=== PATIENT | male | born 1935 | race Caucasian/White ===

== ENCOUNTER 2017-05-04 13:27 | Inpatient (IN) | payer BC, MEDICARE ==
[~2017-05-04] VITALS: Ht 172.7 cm; Wt 63.2 kg
[~2017-05-04 13:27] MED LIST: ASPIR-LOW81 MG PO; ATORVASTATIN CA10 MG PO; CITRACAL + BON1 EACH PO; FOLIC ACID1 MG PO; HYDROXYCHLOROQ200 MG PO; LOSARTAN-HCTZ1 EAC2 PO; METHOTREXATE2.5 MG PO; METHYLPREDNISOLO4 MG PO; SM GLUCOSAMINE1 EACH; ZOLPIDEM TARTRAT5 MG PO
--- OUTSIDE RECORDS SUMMARY | 2017-05-04 13:29 | XMS REPORT | Clinical Summary ---
Author Author [facility] Organization [facility] Address Unknown Phone Unavailable Care Team Providers Care Bar Welder Name Role Phone Asked, Pcp PCP Unavailable Allergies Active Allergy Reactions Severity Noted Date Comments Naproxen Sodium Rash Low 12/24/2015 swelling Methocarbamol Rash Low 12/24/2015 swelling Current Medications Prescription Sig. Disp. Refills Start End Date Status Date methylPREDNISolone 12/13/19 Active (MEDROL) 4 MG tablet 16 losartan (COZAAR) 100 MG 10/22/19 Active tablet 16 atorvastatin (LIPITOR) 10 10/22/19 Active MG tablet 16 hydroxychloroquine 12/13/19 Active (PLAQUENIL) 200 mg tablet 16 folic acid (FOLVITE) 1 MG Take 1 mg by mouth daily. Active tablet hydrALAZINE (APRESOLINE) Take 50 mg by mouth 3 Active 50 MG tablet (three) times a day. CYANOCOBALAMIN, VITAMIN Inject as directed. Active B-12, (VITAMIN B-12 INJ) zolpidem (AMBIEN) 5 MG Take 5 mg by mouth Active tablet nightly as needed for sleep. UNABLE TO FIND Steroid injection every 6 Active wks-for RA Active Problems Problem Noted Date Primary osteoarthritis of right knee 01/12/2016 Social History Tobacco Use Types Packs/Day Years Used Date Never Smoker Alcohol Use Drinks/Week oz/Week Comments No Sex Assigned at Date Recorded Not on file Last Filed Vital Signs Not on file Plan of Treatment Health Maintenance Due Date Last Done Comments ZOSTER VACCINE 1996 PNEUMOCOCCAL 2001 POLYSACCHARIDE VACCINE AGE 65 AND OVER PNEUMOCOCCAL-13 2001 INFLUENZA VACCINE 09/21/2016 Implants Implanted Type Area Assistant Professor Of Philosophy Device Expiration Model / Identifier Date Serial / Lot Tri Tib Cmt Stm 5 Deg Sz F R, IPM Right: Yovia 2025 [id number] Persona Knee Joint Implant - IMPLANT Knee 075 / [id number] DEVICES / Implanted: Qty: 1 on 01/12/2016 by [id number] Eloy Dumas MD All Poly Pat 38 Mm Annalee, Persona IPM Right: [employer] 11/20/2022 [id number] Knee Joint Implant - [id number] IMPLANT Knee 000 38 / Implanted: Qty: 1 on 01/12/2016 by SAMIRA / Eloy Dumas MD [id number] Right Mc 10mm Used With E-F/8-11 - IPM Right: [employer] 12/21/2020 [id number] IMPLANT Knee 0 / Implanted: Qty: 1 on 01/12/2016 by SAMIRA / Eloy Dumas MD [id number] Tri Fem Cr Cmt Ccr Cnt Sz 9 R, IPM Right: [employer] 09/20/2025 [id number] Persona Knee Joint Implant - IMPLANT Knee 2 / [id number] DEVICES / Implanted: Qty: 1 on 01/12/2016 by [id number] Eloy Dumas MD Cement Bone R+G 1dose Palacos - Knee Joint Right: [employer] 2019 [id number] Implants Knee / Implanted: Qty: 2 on 01/12/2016 by / Eloy Dumas MD [id number] Results Not on fileafter 05/03/2016 Insurance Payer Benefit Subscriber ID Type Phone Address Plan / Group MEDICARE MEDICARE xxxxxxxxxx Medicare [employer], [place] PART A AND B COMMERCIAL MISC MISC xxxxxxxxxx [place] [address]
[2017-05-04] MEDS ORDERED: ASPIRIN 325 MG TAB PO ONE (14:00)
[2017-05-04 14:25] LABS: BASOPHILS % 0.2 % (0.0-1.0); HEMATOCRIT 29.6 % (38.2-49.6); HEMOGLOBIN 9.9 g/dL (14.0-18.0); LYMPHOCYTES # (AUTO) 0.4 (1.0-3.2); LYMPHOCYTES % 4.6 % (18.0-39.1); MEAN CORPUSCULAR HEMOGLOBIN 30.3 pg (28-32); MEAN CORPUSCULAR HGB CONC 33.4 g/dL (31-35); MEAN CORPUSCULAR VOLUME 90.5 fL (81-99); MONOCYTES # (AUTO) 0.7 (0.2-0.8); MONOCYTES % 7.7 % (4.4-11.3); NEUTROPHILS # (AUTO) 7.9 (2.1-6.9); NEUTROPHILS % 87.1 % (38.7-80.0); PLATELET COUNT 164 x10e3/uL (140-360); RED BLOOD COUNT 3.27 x10e6/uL (4.3-5.7); RED CELL DISTRIBUTION WIDTH 15.7 % (11.7-14.4)
[2017-05-04 14:36] LABS: INR 1.44; PROTHROMBIN TIME 16.5 seconds (11.9-14.5)
[2017-05-04 14:37] LABS: PARTIAL THROMBOPLASTIN TIME 33.5 seconds (23.8-35.5)
[2017-05-04 14:45] LABS: ALANINE AMINOTRANSFERASE 46 IU/L (0-55); ALBUMIN 3.5 g/dL (3.5-5.0); ALBUMIN/GLOBULIN RATIO 1.3 (0.8-2.0); ALKALINE PHOSPHATASE 35 IU/L (40-150); ANION GAP 13.9 mmol/L (8-16); BLOOD UREA NITROGEN 34 mg/dL (7-26); BUN/CREATININE RATIO 30 (6-25); CALCIUM 8.8 mg/dL (8.4-10.2); CARBON DIOXIDE 19 mmol/L (22-29); CHLORIDE 113 mmol/L (98-107); CREATINE KINASE 146 IU/L (30-200); CREATININE, SERUM 1.13 mg/dL (0.72-1.25); EST GLOMERULAR FILTRATION RATE > 60 ML/MIN (60-); GLUCOSE 96 mg/dL (74-118); POTASSIUM 4.9 mmol/L (3.5-5.1); SODIUM 141 mmol/L (136-145)
[2017-05-04] MEDS ORDERED: FUROSEMIDE INJ 10 MG/ML 2 ML VIAL IV ONE (14:45)
--- NOTE | 2017-05-04 15:07 | Diagnostic Imaging Report ---
PROCEDURE: A single AP view of the chest. COMPARISON: Chest x-ray of 07/04/2013. INDICATIONS: Chest pain, shortness of breath FINDINGS: Lines/tubes: None. Lungs: Lungs are hypoinflated. Bibasilar atelectasis and/or consolidations. Perihilar interstitial edema. Pleura: There is no pleural effusion or pneumothorax. Heart and mediastinum: Mild cardiomegaly. Bones: No acute bony abnormality. IMPRESSION: Bibasilar atelectasis and/or consolidations. Perihilar interstitial edema. Dictated by: Rashad Steele M.D. on 05/04/2017 at 15:07 Electronically approved by: Rashad Steele M.D. on 05/04/2017 at 15:07
[2017-05-04] MEDS ORDERED: ALBUTEROL/IPRATROPIUM 3 ML NEB NEB ONE (15:30)
--- OUTSIDE RECORDS SUMMARY | 2017-05-04 17:30 | XMS REPORT ---
Author Author [facility] Address Unknown Phone Unavailable Care Team Providers Care Manager Image Name Role Phone KORINA MENDEZ Unavailable Unavailable Problems This patient has no known problems. Allergies, Adverse Reactions, Alerts This patient has no known allergies or adverse reactions. Medications This patient has no known medications. Results Test Description Test Time Test Comments Text Results Atomic Results Result Comments CHEST SINGLE (PORTABLE) [place] [address] Patient Name: BILL CARUSO MR #: [id number] : 1935 Age/Sex: 81/M Req #: [id number] Adm Physician: Ordered by: KORINA MENDEZ MD Report #: [id number] Location: ER Room/Bed: Procedure: [id number] DX/CHEST SINGLE (PORTABLE) Exam Date: 05/04/17 Exam Time: 1420 REPORT STATUS: Signed PROCEDURE: A single AP view of the chest. COMPARISON: Chest x-ray of 07/04/2013. INDICATIONS : Chest pain, shortness of breath FINDINGS: Lines/tubes: None. Lungs: Lungs are hypoinflated. Bibasilar atelectasis and/or consolidations. Perihilar interstitial edema. Pleura: There is no pleural effusion or pneumothorax. Heart and mediastinum: Mild cardiomegaly. Bones: No acute bony abnormality. IMPRESSION: Bibasilar atelectasis and/or consolidations. Perihilar interstitial edema. Dictated by: Barbie Steele M.D. on 05/04/2017 at 15:07 Electronically approved by: Barbie Steele M.D. on 05/04/2017 at 15:07 Dictated By: BARBIE STELEE MD [id number] Transcribed By: TAYLOR on 05/04/17 1507 COPY TO: KORINA MENDEZ MD
--- OUTSIDE RECORDS SUMMARY | 2017-05-04 17:30 | XMS REPORT | Clinical Summary ---
Author Author [facility] Organization [facility] Address Unknown Phone Unavailable Care Team Providers Care Legal Adviser Name Role Phone Asked, Pcp PCP Unavailable [...] INFLUENZA VACCINE 09/21/2016 Implants Implanted Type Area Tobacco Grader Device Expiration Model / Identifier Date Serial / Lot Tri Tib Cmt Stm 5 Deg Sz F R, IPM Right: Whois 2025 [id number] Persona Knee Joint Implant - IMPLANT Knee 075 / [id number] DEVICES / Implanted: Qty: 1 on 01/12/2016 by [id number] Eloy Dumas MD All Poly Pat 38 Mm Annalee, Persona IPM Right: [employer] 11/20/2022 42 [id number] Knee Joint Implant - [id number] IMPLANT Knee 000 38 / Implanted: Qty: 1 on 01/12/2016 by SAMIRA / Eloy Dumas MD [id number] Right Mc 10mm Used With E-F/8-11 - IPM Right: [employer] 12/21/2020 [id number] IMPLANT Knee 0 / Implanted: Qty: 1 on 01/12/2016 by SAMIRA / Eloy Dumas MD [id number] Tri Fem Cr Cmt Ccr Cnt Sz 9 R, IPM Right: [employer] 09/20/2025 [id number] Persona Knee Joint Implant - IMPLANT Knee 2 / [id number] DEVICES / Implanted: Qty: 1 on 01/12/2016 by [id number] Eloy Dumas MD Cement Bone R+G 1dose Palacos - Knee Joint Right: [employer] 2019 [id number] Implants Knee / Implanted: Qty: 2 on 01/12/2016 by / Eloy Dumas MD [id number] Results Not on fileafter 05/03/2016 Insurance Payer Benefit Subscriber ID Type Phone Address Plan / Group MEDICARE MEDICARE xxxxxxxxxx Medicare [place], [place] PART A AND B COMMERCIAL MISC MISC xxxxxxxxxx [place] [address]
[2017-05-04 20:00] VITALS: BP 123/69
[2017-05-04 20:31] VITALS: BP 123/69
[2017-05-04] MEDS: ACETAMINOPHEN 325 MG TAB PO PRN (23:16)
[2017-05-05] VITALS (8 sets, daily range): BP systolic 135–151; BP diastolic 73–94
[2017-05-05 04:32] LABS: CREATINE KINASE MB 4.4 ng/mL (0-5.0)
[2017-05-05] MEDS ORDERED: ASPIRIN 325 MG TAB EC PO SCH (09:00)
[2017-05-05] MEDS ORDERED: LISINOPRIL 10 MG TAB PO SCH (09:00)
[2017-05-05] MEDS: FUROSEMIDE INJ 10 MG/ML 4 ML VIAL IV SCH ×2 (09:56→17:58)
[2017-05-05 12:09] LABS: CREATINE KINASE MB 5.5 ng/mL (0-5.0)
--- NOTE | 2017-05-05 12:13 | Diagnostic Imaging Report ---
PROCEDURE: X-RAY CHEST, TWO VIEWS COMPARISON: Patients [facility], DX, CHEST SINGLE (PORTABLE), 05/04/2017, 14:35. INDICATIONS: CONGESTIVE HEART FAILURE, SHORTNESS OF BREATH FINDINGS: LUNGS: Slight improvement in the pulmonary edema. Bibasilar atelectasis persists. PLEURA: Small bilateral pleural effusions. HEART \T\ MEDIASTINUM: The heart is within normal size-limits. BONES \T\ SOFT TISSUES: No acute findings. CONCLUSION: Improving pulmonary edema. Braden Keen D.O. Dictated by: Braden Keen D.O. on 05/05/2017 at 12:12 Electronically approved by: Braden Keen D.O. on 05/05/2017 at 12:12
--- NOTE | 2017-05-05 12:14 | Consultation ---
DATE OF CONSULTATION: May 05, 2017 CARDIOLOGY CONSULTATION ATTENDING PHYSICIAN: Dr. Bishop. Thank you so much for asking me to see this nice man again in consultation. Mr. Mcduffie is a pleasant but very elderly 81-year-old man with rheumatoid arthritis, who was sent from his doctor's office with swelling of legs and shortness of breath. HISTORY OF PRESENT ILLNESS: Patient was given Megace about 3 weeks ago because he had been gradually losing weight over recent years. The says it is none more recently than before but that after taking the medicine for almost 3 weeks he noted his legs had significant edema and he had shortness of breath. He denies any chest pain or palpitations. PAST MEDICAL HISTORY: Long and complex with rheumatoid arthritis, back pain for over 30 years. He sees a guide tour, Dr. Vargas, and gets steroid injections about every 90 days. He had a left total knee replacement in 2012 evidently complicated by deep venous thrombosis. He used to take warfarin. He had a right total knee replacement in 2015. He had back surgery in 1984. He reports he had coronary stents placed in 2005 at [facility] by Dr. Savage. He continues to see Dr. Savage. He was hospitalized at [facility] in 2014 for a urinary tract infection and confusion. Echocardiogram in 2014 showed an ejection fraction of 59% and mild left ventricular hypertrophy. HOME MEDICATIONS: Not noted on the chart but he has previously taken aspirin 81, atorvastatin, glucosamine, losartan 100 mg daily, methylprednisolone, and Ambien. PERSONAL AND SOCIAL HISTORY: He does not currently smoke nor drink. He lives with his . PHYSICAL EXAMINATION: GENERAL: Shows an elderly white man who is alert and responsive. No distress. VITALS: Blood pressure 140/83, afebrile, pulse 100. HEENT: Unremarkable. THORAX: Heart sounds S1 and S2 are equal. No murmurs, gallops or rubs audible. The lungs have faint bibasilar crackles. ABDOMEN: Protuberant. Normal bowel sounds. EXTREMITIES: Have 2+ pretibial edema below the knees and bilateral healed knee incisions. LAB: His BNP is 6741. His troponins are normal times 2. CHEST X-RAY: Shows hyperinflated lungs with atelectasis and perihilar edema. ASSESSMENT: 1. New-onset congestive heart failure. 2. 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 PLAN: Agree with plans for diuresis. Will add carvedilol low-dose and will plan to check a Cardiolite in the morning to further assess his coronary status with the knowledge that he has had coronary stenting in the past but no recent chest discomforts. Thank you for asking me to see him in consultation. Job#: [id number] EV
[2017-05-05] MEDS ORDERED: REGADENOSON 0.4 MG/5 ML SYR IV ONE (16:29)
[2017-05-05] MEDS: [UNRECOGNIZED DRUG - OTHER] PO SCH (17:00)
[2017-05-05] MEDS: CARVEDILOL 3.125 MG TAB PO SCH (17:58)
[2017-05-05] MEDS: HYDROCHLOROTHIAZIDE 25 MG TAB PO SCH (18:23)
[2017-05-05] MEDS: LOSARTAN POTASSIUM 100 MG TAB PO SCH (18:27)
[2017-05-05] MEDS: ATORVASTATIN 10 MG TAB PO SCH (20:45)
[2017-05-05] MEDS: ZOLPIDEM TARTRATE 5 MG TAB PO SCH (20:45)
[2017-05-05] MEDS ORDERED: AMIODARONE HCL 200 MG TAB PO ONE (20:45)
[2017-05-06] VITALS (7 sets, daily range): BP systolic 122–155; BP diastolic 72–86
[2017-05-06] MEDS: AMIODARONE HCL 200 MG TAB PO SCH ×3 (04:00→21:33)
[2017-05-06 07:13] LABS: BASOPHILS # (AUTO) 0.1 (0.0-0.1); BASOPHILS % 0.6 % (0.0-1.0); EOSINOPHILS # (AUTO) 0.1 (0.0-0.4); EOSINOPHILS % 0.6 % (0.0-6.0); HEMATOCRIT 30.1 % (38.2-49.6); HEMOGLOBIN 10.1 g/dL (14.0-18.0); LYMPHOCYTES # (AUTO) 1.1 (1.0-3.2); LYMPHOCYTES % 12.2 % (18.0-39.1); MEAN CORPUSCULAR HEMOGLOBIN 30.5 pg (28-32); MEAN CORPUSCULAR HGB CONC 33.6 g/dL (31-35); MEAN CORPUSCULAR VOLUME 90.9 fL (81-99); MONOCYTES # (AUTO) 0.8 (0.2-0.8); MONOCYTES % 9.6 % (4.4-11.3); NEUTROPHILS # (AUTO) 6.7 (2.1-6.9); NEUTROPHILS % 76.8 % (38.7-80.0); PLATELET COUNT 156 x10e3/uL (140-360); RED BLOOD COUNT 3.31 x10e6/uL (4.3-5.7)
[2017-05-06 07:41] LABS: ANION GAP 13.3 mmol/L (8-16); CALCIUM 8.9 mg/dL (8.4-10.2); CREATININE, SERUM 1.46 mg/dL (0.72-1.25); POTASSIUM 4.3 mmol/L (3.5-5.1)
[2017-05-06] MEDS: HYDROXYCHLOROQUINE SULFATE 200 MG TAB PO SCH (09:00)
[2017-05-06] MEDS: ASPIRIN 81 MG CHEW TAB PO SCH (09:00)
[2017-05-06] MEDS ORDERED: [UNRECOGNIZED DRUG - OTHER] PO SCH (09:00)
[2017-05-06] MEDS: CARVEDILOL 3.125 MG TAB PO SCH ×2 (09:00→17:10)
[2017-05-06] MEDS: FUROSEMIDE INJ 10 MG/ML 4 ML VIAL IV SCH ×2 (09:00→17:10)
[2017-05-06] MEDS: LOSARTAN POTASSIUM 100 MG TAB PO SCH (09:00)
[2017-05-06] MEDS ORDERED: LOSARTAN PO SCH (09:00)
[2017-05-06] MEDS ORDERED: HYDROCHLOROTHIAZIDE PO SCH (09:00)
[2017-05-06] MEDS: [UNRECOGNIZED DRUG - OTHER] PO SCH ×2 (09:00→17:00)
[2017-05-06] MEDS: HYDROCHLOROTHIAZIDE 25 MG TAB PO SCH (09:00)
[2017-05-06] MEDS: FOLIC ACID 1 MG TAB PO SCH (10:38)
[2017-05-06] MEDS ORDERED: ONDANSETRON HCL INJ 2 MG/ML VIAL IV PRN (11:45)
[2017-05-06] MEDS: METHYLPREDNISOLONE 4 MG TAB PO SCH (13:35)
--- NOTE | 2017-05-06 17:20 | Cardiology Report ---
DATE OF STUDY: May 06, 2017 LEXISCAN MYOVIEW This is a 2-day study. The patient had resting perfusion images taken after an injection of 11 mCi of technetium 99M Myoview on May 05, 2017. On the morning of May 06, 2017, the patient was given Lexiscan 0.4 mg intravenously and shortly afterwards 31.1 mCi of technetium 99M Myoview. Perfusion images were taken by rotation tomography. Comparison of resting and Lexiscan stress images show a medium-size inferior scar. There is a very small anteroseptal scar. There is no distinct evidence of any ischemia detected. Additionally gated wall-motion images were obtained. There is marked global hypokinesis with calculated ejection fraction of 22%. FINAL IMPRESSION 1. Abnormal Lexiscan Myoview for perfusion. 2. Medium-size inferior scar. 3. Very small anteroseptal scar. 4. No distinct ischemia noted. 5. Global hypokinesis and calculated ejection fraction 22%. Job#: [id number] cc:BRITTNEY VALENCIA MD
[2017-05-06] MEDS: ATORVASTATIN 10 MG TAB PO SCH (21:33)
--- NOTE | 2017-05-06 21:45 | Consultation ---
DATE OF CONSULTATION: May 06, 2017 REFERRING PHYSICIAN: Dr. Temple REASON FOR CONSULT: Ventricular tachycardia, cardiomyopathy. HISTORY OF PRESENT ILLNESS: This is an 81-year-old gentleman with history of hypertension, who was admitted with progressive shortness of breath found to have decompensated heart failure. Patient states she has been having these symptoms for about 1 year and worse over the last 6 months. He also has history of coronary artery disease. He had a myocardial infarction about 10 years ago, underwent PCI. This time, he had an echocardiogram that demonstrated ejection fraction 20%. He is congestive heart failure class 3 and is currently receiving medical therapy. His telemetry showed an episode of ventricular tachycardia that lasted for about 15 seconds. Patient does not recall feeling any palpitations. Denies syncope or cardiac arrest. REVIEW OF SYSTEMS CONSTITUTIONAL: Weakness. CARDIOVASCULAR: As per HPI. RESPIRATORY: Negative. GASTROINTESTINAL: Negative. GENITOURINARY: Negative. MUSCULOSKELETAL: Negative. EYES: Negative. ENT: Negative. ALLERGY/IMMUNOLOGY: Negative. PSYCHIATRIC: Negative. PAST MEDICAL HISTORY: As per HPI. SURGICAL HISTORY: Negative. SOCIAL HISTORY: No smoking, alcohol or illicit drugs. FAMILY HISTORY: No premature coronary artery disease. PHYSICAL EXAM VITAL SIGNS: Blood pressure 128/60, pulse 70, respiration 20, O2 sats 98%. GENERAL: In no acute distress. HEENT: Moist mucous membranes. CARDIOVASCULAR: Regular. RESPIRATORY: Clear to auscultation. ABDOMEN: Soft, nontender. MUSCULOSKELETAL: 2+ distal pulses. NEUROLOGIC: No focal deficits. EXTREMITIES: Normal range of motion on all 4. PSYCHIATRIC: Normal thought process. SKIN: No lesions. EKG: Sinus rhythm, incomplete left bundle-branch block with QRS duration 100. IMPRESSIONS 1. Ischemic cardiomyopathy with ejection fraction 20%. Patient had scar by stress test. 2. History of myocardial infarction about 10 years ago. 3. History of coronary stent placement about 10 years ago. RECOMMENDATIONS: Agree with continuing aggressive medical therapy. Started amiodarone 400 mg q.8 h while he is in the hospital and then, discharged on 200 mg once a day. Patient has ischemic cardiomyopathy with significant scar burden unlikely to recover since he has been chronic since he had myocardial infarctions in the past and also, he had ventricular tachycardia. He has had increased risk for sudden cardiac . He has indication for cardiac defibrillator. This was explained to the patient and he is very interested. At this time, will continue current medical management. Will wait for results from the heart catheterization to decide whether he goes for a cardiac defibrillator. In case he undergoes revascularization, then we could consider a LifeVest. Otherwise, will proceed with ICD during this admission. Thank you for letting us participate in Mr. Mcduffie's health care. Job#: [id number] CQ
[2017-05-06] MEDS: ZOLPIDEM TARTRATE 5 MG TAB PO SCH (22:14)
[2017-05-07] VITALS (7 sets, daily range): BP systolic 100–135; BP diastolic 57–70
[2017-05-07] MEDS: AMIODARONE HCL 200 MG TAB PO SCH ×3 (05:03→20:00)
[2017-05-07] MEDS: LOSARTAN POTASSIUM 100 MG TAB PO SCH (09:00)
[2017-05-07] MEDS: HYDROCHLOROTHIAZIDE 25 MG TAB PO SCH (09:00)
[2017-05-07] MEDS: FUROSEMIDE INJ 10 MG/ML 4 ML VIAL IV SCH ×2 (09:00→17:13)
[2017-05-07] MEDS: HYDROXYCHLOROQUINE SULFATE 200 MG TAB PO SCH (09:00)
[2017-05-07] MEDS: ASPIRIN 81 MG CHEW TAB PO SCH (09:00)
[2017-05-07] MEDS: FOLIC ACID 1 MG TAB PO SCH (09:00)
[2017-05-07] MEDS: METHYLPREDNISOLONE 4 MG TAB PO SCH (09:00)
[2017-05-07] MEDS: CARVEDILOL 3.125 MG TAB PO SCH ×2 (09:00→17:00)
[2017-05-07] MEDS: [UNRECOGNIZED DRUG - OTHER] PO SCH ×2 (09:00→17:00)
[2017-05-07 13:22] LABS: FREE THYROXINE INDEX 2.4523 (1.4-3.8)
[2017-05-07] MEDS: ATORVASTATIN 10 MG TAB PO SCH (20:59)
[2017-05-07] MEDS: CEPHALEXIN 500 MG CAP PO SCH (20:59)
[2017-05-07] MEDS: ZOLPIDEM TARTRATE 5 MG TAB PO SCH (22:42)
[2017-05-08] VITALS (7 sets, daily range): BP systolic 97–123; BP diastolic 54–73
[2017-05-08] MEDS: AMIODARONE HCL 200 MG TAB PO SCH ×3 (04:25→21:10)
[2017-05-08] MEDS: METHYLPREDNISOLONE 4 MG TAB PO SCH (08:30)
[2017-05-08] MEDS: FOLIC ACID 1 MG TAB PO SCH (08:30)
[2017-05-08] MEDS: CEPHALEXIN 500 MG CAP PO SCH ×2 (08:30→21:10)
[2017-05-08] MEDS: ASPIRIN 81 MG CHEW TAB PO SCH (08:30)
[2017-05-08] MEDS: HYDROXYCHLOROQUINE SULFATE 200 MG TAB PO SCH (08:30)
[2017-05-08] MEDS: HYDROCHLOROTHIAZIDE 25 MG TAB PO SCH (08:30)
[2017-05-08] MEDS: LOSARTAN POTASSIUM 100 MG TAB PO SCH (08:30)
[2017-05-08] MEDS: CARVEDILOL 3.125 MG TAB PO SCH ×2 (08:30→17:00)
[2017-05-08] MEDS: FUROSEMIDE INJ 10 MG/ML 4 ML VIAL IV SCH ×2 (08:30→17:00)
[2017-05-08] MEDS: [UNRECOGNIZED DRUG - OTHER] PO SCH ×2 (09:00→17:00)
[2017-05-08] MEDS: ATORVASTATIN 10 MG TAB PO SCH (21:10)
[2017-05-08] MEDS: ZOLPIDEM TARTRATE 5 MG TAB PO SCH (23:00)
[2017-05-09] VITALS (10 sets, daily range): BP systolic 88–119; BP diastolic 51–60
[2017-05-09] MEDS: [UNRECOGNIZED DRUG - OTHER] PO SCH ×2 (09:00→16:46)
[2017-05-09] MEDS ORDERED: SODIUM CHLORIDE FLUSH 10 ML SYR INJ PRN (10:15)
[2017-05-09] MEDS: ASPIRIN 81 MG CHEW TAB PO SCH (10:18)
[2017-05-09] MEDS: FUROSEMIDE INJ 10 MG/ML 4 ML VIAL IV SCH (10:18)
[2017-05-09] MEDS: HYDROXYCHLOROQUINE SULFATE 200 MG TAB PO SCH (10:19)
[2017-05-09] MEDS: CARVEDILOL 3.125 MG TAB PO SCH ×2 (10:19→16:47)
[2017-05-09] MEDS: METHYLPREDNISOLONE 4 MG TAB PO SCH (10:19)
[2017-05-09] MEDS: FOLIC ACID 1 MG TAB PO SCH (10:19)
[2017-05-09] MEDS: HYDROCHLOROTHIAZIDE 25 MG TAB PO SCH (10:19)
[2017-05-09] MEDS: LOSARTAN POTASSIUM 100 MG TAB PO SCH (10:19)
[2017-05-09] MEDS: CEPHALEXIN 500 MG CAP PO SCH ×2 (10:19→21:00)
--- NOTE | 2017-05-09 11:03 | Diagnostic Imaging Report ---
PROCEDURE: A single AP view of the chest. COMPARISON: Chest 2 views 05/05/2017. INDICATIONS: CARDIAC CATHERIZATION FINDINGS: Lines/tubes: None. Lungs: Stable elevation of the left hemidiaphragm. Bibasilar airspace opacities. No parenchymal mass. Pleura: There is no pleural effusion or pneumothorax. Heart and mediastinum: The heart and the mediastinum are unremarkable. Bones: No acute bony abnormality. Degenerative changes of the thoracic spine. Postoperative changes of the left shoulder. IMPRESSION: Bibasilar airspace opacities may represent atelectasis or developing pneumonia. Dictated by: Manpreet Elizabeth M.D. on 05/09/2017 at 11:03 Electronically approved by: Manpreet Elizabeth M.D. on 05/09/2017 at 11:03
[2017-05-09] MEDS: AMIODARONE HCL 200 MG TAB PO SCH (12:16)
[2017-05-09] MEDS: ZOLPIDEM TARTRATE 5 MG TAB PO SCH (21:00)
[2017-05-09] MEDS: ATORVASTATIN 10 MG TAB PO SCH (21:00)
[2017-05-10] VITALS (8 sets, daily range): BP systolic 98–122; BP diastolic 56–62
[2017-05-10 07:33] LABS: BASOPHILS % 0.2 % (0.0-1.0); EOSINOPHILS % 0.3 % (0.0-6.0); HEMATOCRIT 34.5 % (38.2-49.6); HEMOGLOBIN 11.8 g/dL (14.0-18.0); LYMPHOCYTES # (AUTO) 1.4 (1.0-3.2); LYMPHOCYTES % 14.9 % (18.0-39.1); MEAN CORPUSCULAR HEMOGLOBIN 30.4 pg (28-32); MEAN CORPUSCULAR HGB CONC 34.2 g/dL (31-35); MEAN CORPUSCULAR VOLUME 88.9 fL (81-99); MONOCYTES % 11.1 % (4.4-11.3); NEUTROPHILS # (AUTO) 6.8 (2.1-6.9); PLATELET COUNT 204 x10e3/uL (140-360); RED BLOOD COUNT 3.88 x10e6/uL (4.3-5.7); RED CELL DISTRIBUTION WIDTH 14.8 % (11.7-14.4)
[2017-05-10 07:37] LABS: INR 1.27; PROTHROMBIN TIME 14.9 seconds (11.9-14.5)
[2017-05-10 07:38] LABS: PARTIAL THROMBOPLASTIN TIME 26.8 seconds (23.8-35.5)
[2017-05-10 07:57] LABS: ANION GAP 13.1 mmol/L (8-16); CALCIUM 8.8 mg/dL (8.4-10.2); CREATININE, SERUM 2.46 mg/dL (0.72-1.25); POTASSIUM 4.1 mmol/L (3.5-5.1)
[2017-05-10] MEDS: [UNRECOGNIZED DRUG - OTHER] PO SCH ×2 (09:00→17:00)
[2017-05-10] MEDS ORDERED: FUROSEMIDE INJ 10 MG/ML 4 ML VIAL IV SCH (09:00)
[2017-05-10] MEDS ORDERED: LIDOCAINE HCL 2% LOCAL 20 ML VIAL ONE (10:52)
[2017-05-10] MEDS: ASPIRIN 81 MG CHEW TAB PO SCH (12:10)
[2017-05-10] MEDS: LOSARTAN POTASSIUM 100 MG TAB PO SCH (12:10)
[2017-05-10] MEDS: CARVEDILOL 3.125 MG TAB PO SCH ×2 (12:10→17:49)
[2017-05-10] MEDS: AMIODARONE HCL 200 MG TAB PO SCH (12:10)
[2017-05-10] MEDS: FOLIC ACID 1 MG TAB PO SCH (12:10)
[2017-05-10] MEDS: HYDROCHLOROTHIAZIDE 25 MG TAB PO SCH (12:10)
[2017-05-10] MEDS: CEPHALEXIN 500 MG CAP PO SCH ×2 (12:11→20:29)
[2017-05-10] MEDS: METHYLPREDNISOLONE 4 MG TAB PO SCH (13:34)
--- NOTE | 2017-05-10 15:57 | Consultation ---
DATE OF CONSULTATION: May 10, 2017 RENAL CONSULTATION History predominantly from patient. HISTORY OF PRESENT ILLNESS: This is a pleasant 81-year-old white gentleman with underlying history of coronary artery disease status post percutaneous intervention, stents times [address] Savage at the [facility], history of left shoulder surgery, right knee replacement, hypertension, history of prostate cancer 9 years ago treated with radiation pallets. Has no trouble passing urine. Presented with difficulty breathing. Found to have congestive heart failure. Was diuresed. Serum creatinine baseline 1.46, went up to 2.46, which is why Renal consulted. Last BNP level 1708. Otherwise, he is lying supine. Not on oxygen. Perfectly comfortably. No apparent distress. Denies shortness of breath, orthopnea or dyspnea. ALLERGIES: NAPROXEN AND METHOCARBAMOL. SOCIAL HISTORY: Does not smoke or drink. FAMILY HISTORY: Significant for hypertension. CURRENT MEDICATIONS: Lasix. Hydrochlorothiazide/losartan. Ambien. Medrol 40 mg p.o. daily. Folic acid 1 mg p.o. daily. Cephalexin 500 mg p.o. q.12. Carvedilol 3.125 p.o. b.i.d. Atorvastatin 10 mg p.o. nightly. Aspirin 81 mg to chew. Amiodarone 400 mg p.o. daily. PHYSICAL EXAMINATION: GENERAL: Awake, alert, lying supine. No apparent distress. VITALS: Blood pressure 122/57, pulse rate 54, afebrile, respiratory rate 18 with oxygen saturation 98% room air. HEAD AND NECK: Cornea clear. Oral mucosa dry. Neck veins not distended. SKIN: Dry. Poor turgor. LUNGS: Bibasilar rales. HEART: A 3/6 holosystolic murmur heard over left lower sternal border, radiating to the axilla. Suggestive of mitral regurgitation. ABDOMEN: Soft, nontender. LOWER EXTREMITY EXAMINATION: Shows no edema. IMPRESSION: Acute kidney injury superimposed on chronic kidney disease stage 3 most likely. It appears patient does have some element of pulmonary edema but extremely well compensated. He clinically appears dry and intravascularly depleted. I will discontinue all diuretics, angiotensin-receptor blockers. Obtain kidney ultrasound, spot urine protein-creatinine ratio, urine sodium-creatinine, calculated fraction excretion of sodium. Obtain uric acid. Will give 5% albumin 500 mL over 6 hours. Gently hydrate. At the same time diurese as needed. Workup pending. Discussed with patient in detail. Job#: [id number] EV
[2017-05-10] MEDS: ALBUMIN 5% 250 ML IV SCH ×2 (16:41→20:25)
--- NOTE | 2017-05-10 17:09 | Diagnostic Imaging Report ---
PROCEDURE:US RETROPERITONEAL ( KIDNEY ). COMPARISON:None. INDICATIONS:YAYO TECHNIQUE: Scott-scale and color sonographic images of the bilateral kidneys and bladder where obtained in transverse and longitudinal planes. FINDINGS: RIGHT KIDNEY: 9.3 cm, cortex 1.4 cm Cysts: None Solid masses: None Stones: None Hydronephrosis: None Echogenicity: Normal LEFT KIDNEY: 6.2 cm, cortex 0.9 cm Cysts: None Solid masses: None Stones: None Hydronephrosis: None Echogenicity: Increased Bladder: No focal lesions. No wall thickening. Prostate: Not visualized. CONCLUSION: 1. Atrophic left kidney with increased cortical echogenicity consistent with medical renal disease. No hydronephrosis or obstruction. Right kidney is unremarkable. Beka Palma M.D. Dictated by: Beka Palma M.D. on 05/10/2017 at 17:09 Electronically approved by: Beka Palma M.D. on 05/10/2017 at 17:09
[2017-05-10 17:56] LABS: BILIRUBIN,URINE NEGATIVE (NEGATIVE); CLARITY,URINE CLEAR (CLEAR); COLOR,URINE YELLOW (YELLOW); KETONES,URINE NEGATIVE (NEGATIVE); LEUKOCYTE ESTERASE ,URINE NEGATIVE (NEGATIVE); NITRITE,URINE NEGATIVE (NEGATIVE); PROTEIN,URINE DIPSTICK NEGATIVE (NEGATIVE); URINE UROBILINOGEN 0.2 mg/dL (0.2 - 1)
[2017-05-10 18:09] LABS: CREATININE,URINE RANDOM 42.13 mg/dL (63-166)
[2017-05-10 18:12] LABS: TOTAL PROTEIN, URINE < 6.8 mg/dL (1-14)
[2017-05-10] MEDS: ATORVASTATIN 10 MG TAB PO SCH (20:29)
[2017-05-10] MEDS: ZOLPIDEM TARTRATE 5 MG TAB PO SCH (21:30)
[2017-05-11 03:41] VITALS: BP 111/53
[2017-05-11 07:12] LABS: ALBUMIN 3.6 g/dL (3.5-5.0); ALBUMIN/GLOBULIN RATIO 1.4 (0.8-2.0); ANION GAP 12.7 mmol/L (8-16); CALCIUM 8.9 mg/dL (8.4-10.2); CREATININE, SERUM 2.27 mg/dL (0.72-1.25); MAGNESIUM 1.8 MG/DL (1.3-2.1); PHOSPHORUS 3.5 MG/DL (2.3-4.7); POTASSIUM 4.7 mmol/L (3.5-5.1)
[2017-05-11 08:07] VITALS: BP 118/58
[2017-05-11] MEDS: AMIODARONE HCL 200 MG TAB PO SCH (09:00)
[2017-05-11] MEDS: CEPHALEXIN 500 MG CAP PO SCH ×2 (09:00→20:20)
[2017-05-11] MEDS: [UNRECOGNIZED DRUG - OTHER] PO SCH ×2 (09:00→16:57)
[2017-05-11] MEDS: CARVEDILOL 3.125 MG TAB PO SCH ×2 (09:00→16:56)
[2017-05-11] MEDS: METHYLPREDNISOLONE 4 MG TAB PO SCH (09:00)
[2017-05-11] MEDS: ASPIRIN 81 MG CHEW TAB PO SCH (09:00)
[2017-05-11] MEDS: FOLIC ACID 1 MG TAB PO SCH (09:00)
[2017-05-11] MEDS ORDERED: ALBUMIN HUMAN 12.5GM / 50ML IV ONE (09:30)
[2017-05-11] MEDS: ACETAMINOPHEN 325 MG TAB PO PRN ×2 (09:30→16:56)
[2017-05-11 09:51] VITALS: BP 118/58
[2017-05-11] MEDS ORDERED: ALBUMIN 5% 500 ML IV ONE (10:00)
[2017-05-11 12:14] VITALS: BP 101/52
[2017-05-11 16:20] VITALS: BP 107/58
[2017-05-11 20:00] VITALS: BP 111/57
[2017-05-11] MEDS: ATORVASTATIN 10 MG TAB PO SCH (20:20)
[2017-05-11] MEDS: ZOLPIDEM TARTRATE 5 MG TAB PO SCH (22:15)
[2017-05-12] VITALS (7 sets, daily range): BP systolic 110–126; BP diastolic 55–66
[2017-05-12 07:17] LABS: ALBUMIN 3.7 g/dL (3.5-5.0); ALBUMIN/GLOBULIN RATIO 1.6 (0.8-2.0); ANION GAP 13.7 mmol/L (8-16); CREATININE, SERUM 1.86 mg/dL (0.72-1.25); POTASSIUM 4.7 mmol/L (3.5-5.1)
[2017-05-12] MEDS: ASPIRIN 81 MG CHEW TAB PO SCH (09:00)
[2017-05-12] MEDS: METHYLPREDNISOLONE 4 MG TAB PO SCH (09:00)
[2017-05-12] MEDS: CARVEDILOL 3.125 MG TAB PO SCH ×2 (09:00→17:00)
[2017-05-12] MEDS: [UNRECOGNIZED DRUG - OTHER] PO SCH ×2 (09:00→17:00)
[2017-05-12] MEDS: AMIODARONE HCL 200 MG TAB PO SCH (09:00)
[2017-05-12] MEDS: CEPHALEXIN 500 MG CAP PO SCH ×2 (09:00→21:40)
[2017-05-12] MEDS: FOLIC ACID 1 MG TAB PO SCH (09:00)
[2017-05-12] MEDS: ATORVASTATIN 10 MG TAB PO SCH (21:40)
[2017-05-13] VITALS: BP 128/59
[2017-05-13 04:00] VITALS: BP 130/61
[2017-05-13 07:24] LABS: ALBUMIN 3.5 g/dL (3.5-5.0); ALBUMIN/GLOBULIN RATIO 1.5 (0.8-2.0); ANION GAP 13.2 mmol/L (8-16); CALCIUM 8.9 mg/dL (8.4-10.2); CREATININE, SERUM 1.74 mg/dL (0.72-1.25); POTASSIUM 4.2 mmol/L (3.5-5.1)
[2017-05-13 08:01] VITALS: BP 146/62
[2017-05-13] MEDS: [UNRECOGNIZED DRUG - OTHER] PO SCH (09:00)
[2017-05-13 09:33] VITALS: BP 146/62
[2017-05-13] MEDS: CARVEDILOL 3.125 MG TAB PO SCH (09:33)
[2017-05-13] MEDS: ASPIRIN 81 MG CHEW TAB PO SCH (09:33)
[2017-05-13] MEDS: FOLIC ACID 1 MG TAB PO SCH (09:33)
[2017-05-13] MEDS: AMIODARONE HCL 200 MG TAB PO SCH (09:33)
[2017-05-13] MEDS: CEPHALEXIN 500 MG CAP PO SCH (09:33)
[2017-05-13] MEDS ORDERED: COREG3.125 MG PO (11:48)
[2017-05-13] MEDS ORDERED: AMIODARONE HCL200 MG PO (11:48)
[2017-05-13 11:55] VITALS: BP 111/59
[2017-05-13] MEDS ORDERED: ALPRAZOLAM 0.25 MG TAB PO SCH (17:00)
== END 2017-05-13 13:55 | disposition home or self-care (01) | DRG 291 ==
LOC: ER 13:27 → ERHOLD 17:27 → MED/SURG3 18:37
PROVIDERS: ADMIT Internal Medicine; ATTEND Internal Medicine
DX: I13.0 Hypertensive heart and chronic kidney disease with heart failure and stage 1 through stage 4 chronic kidney disease, or unspecified chronic kidney disease (principal); I50.23 Acute on chronic systolic (congestive) heart failure; N17.9 Acute kidney failure, unspecified; I47.2 Ventricular tachycardia; I25.5 Ischemic cardiomyopathy; I25.10 Atherosclerotic heart disease of native coronary artery without angina pectoris; L03.116 Cellulitis of left lower limb; M06.9 Rheumatoid arthritis, unspecified; Z96.653 Presence of artificial knee joint, bilateral; Z86.718 Personal history of other venous thrombosis and embolism; Z95.5 Presence of coronary angioplasty implant and graft; I34.0 Nonrheumatic mitral (valve) insufficiency; I25.2 Old myocardial infarction; N18.3 Chronic kidney disease, stage 3 (moderate); D64.9 Anemia, unspecified; T37.8X5A Adverse effect of other specified systemic anti-infectives and antiparasitics, initial encounter; R79.89 Other specified abnormal findings of blood chemistry; Z79.52 Long term (current) use of systemic steroids
CPT/HCPCS: 36415; 71045; 71046; 76770; 78452; 80048; 80053; 81001; 82550; 82553; 82570; 83735; 83880; 84100; 84156; 84300; 84436; 84443; 84479; 84484; 84550; 85025; 85610; 85730; 93005; 93017; 93306; 94640; 99285; A9502; J1940; J2001; J7509

== ENCOUNTER 2017-06-21 07:16 | Observation (INO) | payer MEDICARE, OTHER ==
[2017-06-20 16:37] LABS: BASOPHILS % 0.6 % (0.0-1.0); EOSINOPHILS % 0.1 % (0.0-6.0); HEMATOCRIT 35.5 % (38.2-49.6); HEMOGLOBIN 12.1 g/dL (14.0-18.0); LYMPHOCYTES # (AUTO) 0.7 (1.0-3.2); MEAN CORPUSCULAR HEMOGLOBIN 30.5 pg (28-32); MEAN CORPUSCULAR HGB CONC 34.1 g/dL (31-35); MEAN CORPUSCULAR VOLUME 89.4 fL (81-99); MONOCYTES # (AUTO) 0.5 (0.2-0.8); MONOCYTES % 6.8 % (4.4-11.3); NEUTROPHILS # (AUTO) 5.9 (2.1-6.9); NEUTROPHILS % 82.2 % (38.7-80.0); PLATELET COUNT 196 x10e3/uL (140-360); RED BLOOD COUNT 3.97 x10e6/uL (4.3-5.7); RED CELL DISTRIBUTION WIDTH 15.3 % (11.7-14.4)
[2017-06-20 16:48] LABS: INR 1.15; PROTHROMBIN TIME 13.8 seconds (11.9-14.5)
[2017-06-20 16:55] LABS: ANION GAP 14.1 mmol/L (8-16); CALCIUM 9.5 mg/dL (8.4-10.2); CREATININE, SERUM 1.2 mg/dL (0.72-1.25); POTASSIUM 4.1 mmol/L (3.5-5.1)
[~2017-06-21] VITALS: Ht 167.6 cm; Wt 60.8 kg
[~2017-06-21 07:16] MED LIST changes: +ALPRAZOLAM0.25 MG PO; +AMIODARONE HCL200 MG PO; +BACITRACIN 50,000 UNIT VIAL ONE; +CLEOCIN 60600 MG/50 TOP; +COREG3.125 MG PO; +FENTANYL CITRATE/PF 100MCG/2 ML INJ ONE; +FLUTICASONE PRO16 GM; +FUROSEMIDE40 MG PO; +LIDOCAINE HCL 2% LOCAL 20 ML VIAL ONE; +MIDAZOLAM HCL 2 MG/2 ML VIAL ONE; +SODIUM CHLORIDE 0.9% 1000ML 2,000 ML ONE; +SODIUM CHLORIDE 0.9% 500ML 500 ML ONE; +VANCOMYCIN 1GM/NS 250 ML 250 ML ONE; +VITAMIN B12 IM
--- OUTSIDE RECORDS SUMMARY | 2017-06-21 07:18 | XMS REPORT | Continuity of Care Document ---
Author Author [facility] Organization [facility] Address [address] [place] [address] Phone Unavailable Care Team Providers Care Reserve Officer Name Role Phone MATA MENDEZ (NS) PCP Insurance Providers Guarantor Giuliana Caruso Address [address] [place] [address] Email N/A Payer Medicare A & B Policy Number [id number] Subscriber's Name Bill Caruso Relationship 18 Self / Same As Patient Group Name RETIRED Effective Date 01 Advance Directives Directive Response Recorded Date/Time Does the patient have an advance directive? Yes 05/04/17 8:00pm If yes, is advance directive on file with [facility]? No 05/04/17 8:00pm If not on file with [facility] will patient provide a copy? No 05/04/17 8:00pm Do you have a Directive to Physician? No 05/04/17 2:41pm Do you have a Medical Power of Nut Feeder? No 05/04/17 2:41pm Do you have an out of hospital Do Not Resuscitate Order? No 05/04/17 2:41pm Do you have any special needs we should be aware of? No 05/04/17 2:41pm Do you have a support person here with you today? Yes 05/04/17 2:41pm Did patient receive Notice of Privacy Practices? Yes 05/04/17 2:41pm Did patient receive patient rights and responsibilities? Yes 05/04/17 2:41pm Problems Medical Problem Onset Date Status CAD (coronary artery disease), platinum coronary artery Unknown Medications Current Home Medications Medication Dose Units Route Directions Days Qty Instructions Start Date Amiodarone Hcl 200 Mg Tablet 400 Mg Oral Daily 30 Days 05/13/17 Aspirin (Aspir-Low) 81 Mg Tablet.dr 81 Mg Oral Daily Atorvastatin Calcium 10 Mg Tablet 10 Mg Oral Bedtime Calcium Crb&Cit/D3/Min34/Regina (Citracal + Bone Density Tablet) 1 Each Tablet 630 Mg Oral Twice A Day 60 Days 100 Carvedilol (Coreg) 3.125 Mg Tab 3.125 Mg Oral Twice A Day 30 Days 05/13/17 Folic Acid 1 Mg Tablet 1 Mg Oral Daily Methotrexate Sodium (Methotrexate) 2.5 Mg Tablet 15 Mg Oral Weekly Methylprednisolone 4 Mg Tablet 4 Mg Oral Daily Zolpidem Tartrate 5 Mg Tablet 5 Mg Oral Bedtime Past Home Medications Medication Directions Ordered Status Glucosamine Hcl/Msm (Sm Glucosamine & Msm Tablet) 1 Each Tablet, Twice A Day Discontinued Hydroxychloroquine Sulfate 200 Mg Tablet, 400 Mg Oral Daily Discontinued Losartan/Hydrochlorothiazide (Losartan-Hctz 100-12.5 Mg Tab) 1 Each Tablet, 100 Mg Oral Daily Discontinued Social History Social History Problem Response Recorded Date/Time Onset Date Status Hx Psychiatric Problems No 05/04/2017 8:00pm Not Applicable Not Applicable Hx Eating Disorder No 05/04/2017 8:00pm Not Applicable Not Applicable Hx Substance Use Disorder No 05/04/2017 8:00pm Not Applicable Not Applicable Hx Depression No 05/04/2017 8:00pm Not Applicable Not Applicable Hx Alcohol Use No 05/04/2017 8:00pm Not Applicable Not Applicable Hx Substance Use Treatment No 05/04/2017 8:00pm Not Applicable Not Applicable Hx Physical Abuse No 05/04/2017 8:00pm Not Applicable Not Applicable Smoking Status Start Date Stop Date Never Smoker Hospital Discharge Instructions No hospital discharge instruction information available. Plan of Care Discharge Date 05/13/17 1:55pm Disposition HOME, SELF-CARE Instructions/Education Provided Congestive Heart Failure Prescriptions See Medication Section Referrals JESSICA GE (Nephrology) Order Date: 2 Weeks Entered Date: 05/12/2017 5:50pm Address: [address] [place], [place] [address] [address] Additional Instructions/Education FOLLOW UP WITH PCP IN 1 TO 2 WEEKS. WEAR LIFE VEST EDUCATED. Functional Status Query Response Date Recorded FUNCTIONAL STATUS . May 11, 2017 3:02pm Assistive Devices Standard Walker May 04, 2017 8:00pm Ambulation Ability Independent May 04, 2017 8:00pm Toileting Ability Minimum Assistance May 13, 2017 9:46am Allergies, Adverse Reactions, Alerts Allergen Type Severity Reaction Status Last Updated Methocarbamol Allergy Intermediate unknown Active 05/04/17 Naproxen Allergy Mild Active 07/23/09 Immunizations No immunization information available. Vital Signs Acute Vital Signs Vital Response Date/Time Temperature (Fahrenheit) 96.3 degrees F (97.6 - 99.5) 05/13/2017 11:55am Pulse Pulse Rate (adult) 68 bpm (60 - 90) 05/13/2017 11:55am Respiratory Rate 20 bpm (12 - 24) 05/13/2017 11:55am Blood Pressure 111/59 mm Hg 05/13/2017 11:55am Height 5 ft 8 in 05/04/2017 8:32pm Weight 139.38 lb 05/12/2017 12:23am Body Mass Index 21.2 kg/m^2 05/12/2017 12:23am Results Laboratory Results Test Name Result Units Flags Reference Collection Date/Time Result Date/ Time Comments White Blood Count 9.32 x10e3/uL 4.8-10.8 05/10/2017 7:09am 05/10/2017 7 :39am Red Blood Count 3.88 x10e6/uL L 4.3-5.7 05/10/2017 7:09am 05/10/2017 7: 39am Hemoglobin 11.8 g/dL L 14.0-18.0 05/10/2017 7:09am 05/10/2017 7:39am Hematocrit 34.5 % L 38.2-49.6 05/10/2017 7:09am 05/10/2017 7:39am Mean Corpuscular Volume 88.9 fL 81-99 05/10/2017 7:05/10/2017 7: 39am Mean Corpuscular Hemoglobin 30.4 pg 28-32 05/10/2017 7:05/10/2017 7:39am Mean Corpuscular Hemoglobin Concent 34.2 g/dL 31-35 05/10/2017 7:05/10/2017 7:39am Red Cell Distribution Width 14.8 % H 11.7-14.4 05/10/2017 7:2017 7:39am Platelet Count 204 x10e3/uL 140-360 05/10/2017 7:05/10/2017 7: 39am Neutrophils (%) (Auto) 73.0 % 38.7-80.0 05/10/2017 7:05/10/2017 7: 39am Lymphocytes (%) (Auto) 14.9 % L 18.0-39.1 05/10/2017 7:05/10/2017 7 :39am Monocytes (%) (Auto) 11.1 % 4.4-11.3 05/10/2017 7:05/10/2017 7: 39am Eosinophils (%) (Auto) 0.3 % 0.0-6.0 05/10/2017 7:05/10/2017 7: 39am Basophils (%) (Auto) 0.2 % 0.0-1.0 05/10/2017 7:05/10/2017 7:39am IM GRANULOCYTES % 0.5 % 0.0-1.0 05/10/2017 7:05/10/2017 7:39am Neutrophils # (Auto) 6.8 2.1-6.9 05/10/2017 7:05/10/2017 7:39am Lymphocytes # (Auto) 1.4 1.0-3.2 05/10/2017 7:05/10/2017 7:39am Monocytes # (Auto) 1.0 H 0.2-0.8 05/10/2017 7:05/10/2017 7:39am Eosinophils # (Auto) 0.0 0.0-0.4 05/10/2017 7:05/10/2017 7:39am Basophils # (Auto) 0.0 0.0-0.1 05/10/2017 7:09am 05/10/2017 7:39am Absolute Immature Granulocyte (auto 0.05 x10e3/uL 0-0.1 05/10/2017 7: 09am 05/10/2017 7:39am Prothrombin Time 14.9 seconds H 11.9-14.5 05/10/2017 7:09am 05/10/2017 7 :53am Prothromb Time International Ratio 1.27 05/10/2017 7:09am 2017 7:53am Oral Anticoagulant Therapy INR Values: 1. Low Intensity Therapy 1.5 - 2.0 2. Moderate Intensity Therapy 2.0 - 3.0 3. High Intensity Therapy(1) 2.5 - 3.5 4. High Intensity Therapy(2) 3.0 - 4.0 5. Panic Value INR > 5.0 Activated Partial Thromboplast Time 26.8 seconds 23.8-35.5 05/10/2017 7: 09am 05/10/2017 7:53am Urine Color YELLOW YELLOW 05/10/2017 5:10pm 05/10/2017 5:57pm Urine Clarity CLEAR CLEAR 05/10/2017 5:10pm 05/10/2017 5:57pm Urine Specific Wilson 1.015 1.010-1.025 05/10/2017 5:10pm 2017 5:57pm Urine pH 7 5 - 7 05/10/2017 5:10pm 05/10/2017 5:57pm Urine Leukocyte Esterase NEGATIVE NEGATIVE 05/10/2017 5:10pm 2017 5:57pm Urine Nitrite NEGATIVE NEGATIVE 05/10/2017 5:10pm 05/10/2017 5:57pm Urine Protein NEGATIVE NEGATIVE 05/10/2017 5:10pm 05/10/2017 5:57pm Urine Glucose (UA) NEGATIVE NEGATIVE 05/10/2017 5:10pm 05/10/2017 5: 57pm Urine Ketones NEGATIVE NEGATIVE 05/10/2017 5:10pm 05/10/2017 5:57pm Urine Urobilinogen 0.2 mg/dL 0.2 - 1 05/10/2017 5:10pm 05/10/2017 5: 57pm Urine Bilirubin NEGATIVE NEGATIVE 05/10/2017 5:10pm 05/10/2017 5: 57pm Urine Blood NEGATIVE NEGATIVE 05/10/2017 5:10pm 05/10/2017 5:57pm Urine WBC NONE /HPF 0-5 05/10/2017 5:10pm 05/10/2017 6:09pm Urine RBC NONE /HPF 0-5 05/10/2017 5:10pm 05/10/2017 6:09pm Urine Bacteria NONE /HPF NONE 05/10/2017 5:10pm 05/10/2017 6:09pm Urine Epithelial Cells NONE /LPF NONE 05/10/2017 5:10pm 05/10/2017 6: 09pm Urine Random Total Protein < 6.8 mg/dL 1-14 05/10/2017 5:10pm 2017 6:12pm Urine Random Sodium 96 mmol/L 05/10/2017 5:10pm 05/10/2017 6:00pm Urine Creatinine 42.13 mg/dL L 63-166 05/10/2017 5:10pm 05/10/2017 6: 12pm Urine Protein/Creatinine Ratio 0.00 05/10/2017 5:10pm 05/10/2017 6: 12pm Sodium Level 135 mmol/L L 136-145 05/13/2017 6:1905/13/2017 7:25am Potassium Level 4.2 mmol/L 3.5-5.1 05/13/2017 6:1905/13/2017 7:25am Chloride Level 106 mmol/L 98-107 05/13/2017 6:1905/13/2017 7:25am Carbon Dioxide Level 20 mmol/L L 22-29 05/13/2017 6:1905/13/2017 7: 25am Anion Gap 13.2 mmol/L 8-16 05/13/2017 6:1905/13/2017 7:25am Blood Urea Nitrogen 62 mg/dL H 7-05/13/2017 6:1905/13/2017 7:25am Creatinine 1.74 mg/dL H 0.72-1.25 05/13/2017 6:1905/13/2017 7:25am BUN/Creatinine Ratio 36 H 6-25 05/13/2017 6:1905/13/2017 7:25am Estimat Glomerular Filtration Rate 38 ML/MIN L 60- 05/13/2017 6:19 7:25am Ranges were taken from the National Kidney Disease Education Program and the National Kidney Foundation literature. Reference ranges: 60 or greater: Normal 16-59 (for 3 consecutive months): Chronic kidney disease 15 or less: Kidney failure Glucose Level 77 mg/dL 74-118 05/13/2017 6:05/13/2017 7:25am Calcium Level 8.9 mg/dL 8.4-10.2 05/13/2017 6:05/13/2017 7:25am Uric Acid 10.5 mg/dL H 4.8-8.0 05/10/2017 7:05/10/2017 4:16pm Phosphorus Level 3.5 MG/DL 2.3-4.7 05/11/2017 6:4005/11/2017 7:14am Magnesium Level 1.8 MG/DL 1.3-2.1 05/11/2017 6:4005/11/2017 7:14am Total Bilirubin 0.9 mg/dL 0.2-1.2 05/13/2017 6:05/13/2017 7:25am Aspartate Amino Transf (AST/SGOT) 23 IU/L 5-34 05/13/2017 6:2017 7:25am Alanine Aminotransferase (ALT/SGPT) 39 IU/L 0-55 05/13/2017 6: 7:25am Total Protein 5.8 g/dL L 6.5-8.1 05/13/2017 6:05/13/2017 7:25am Albumin 3.5 g/dL 3.5-5.0 05/13/2017 6:05/13/2017 7:25am Globulin 2.3 g/dL 2.3-3.5 05/13/2017 6:05/13/2017 7:25am Albumin/Globulin Ratio 1.5 0.8-2.0 05/13/2017 6:05/13/2017 7: 25am Alkaline Phosphatase 31 IU/L L 40-150 05/13/2017 6:05/13/2017 7: 25am B-Type Natriuretic Peptide 1708.3 pg/mL H 0-100 05/10/2017 7:2017 7:57am Creatine Kinase 102 IU/L 30-200 05/05/2017 11:18am 05/05/2017 12:13pm Creatine Kinase MB 5.50 ng/mL H 0-5.0 05/05/2017 11:18am 05/05/2017 12: 13pm Troponin I 0.198 ng/mL 0-0.300 05/05/2017 11:18am 05/05/2017 12:13pm Free Thyroxine Index 2.4523 1.4-3.8 05/07/2017 12:19pm 05/07/2017 1: 31pm Thyroxine (T4) 6.85 ug/dL 4.5-10.9 05/07/2017 12:19pm 05/07/2017 1: 31pm Triiodothyronine (T3) Uptake 35.80 % 22.5-37.0 05/07/2017 12:19pm 05/07 1:31pm Thyroid Stimulating Hormone (TSH) 3.038 uIU/mL 0.350-4.940 05/05/2017 3: 34am 05/05/2017 11:04am Procedures Procedure Status Date Provider(s) X-ray of chest, two views Active 05/05/17 BRITTNEY VALENCIA MD Ultrasound, renal Active 05/10/17 JESSICA GE Encounters Encounter Location Arrival/Admit Date Discharge/Depart Date Attending Provider Discharged Inpatient [facility] 05/04/17 5:27pm 05/13/17 1:55pm BRITTNEY VALENCIA MD
--- OUTSIDE RECORDS SUMMARY | 2017-06-21 07:18 | XMS REPORT | Clinical Summary ---
Author Author [facility] Organization [facility] Address Unknown Phone Unavailable Care Team Providers Care Gut Sorter Name Role Phone Asked, Pcp PCP Unavailable [...] Health Maintenance Due Date Last Done Comments SHINGRIX VACCINE (#1) 1986 ZOSTER VACCINE 1996 PNEUMOCOCCAL 2001 POLYSACCHARIDE VACCINE AGE 65 AND OVER PNEUMOCOCCAL-13 2001 INFLUENZA VACCINE 09/21/2017 Implants Implanted Type Area Programs Director Device Expiration Model / Identifier Date Serial / Lot Tri Tib Cmt Stm 5 Deg Sz F R, IPM Right: [employer] 2025 [id number] Persona Knee Joint Implant - IMPLANT Knee 075 02 / [id number] DEVICES / Implanted: Qty: 1 on 01/12/2016 by [id number] Eloy Dumas MD All Poly Pat 38 Mm Annalee, Persona IPM Right: [employer] 11/20/2022 42 5400 Knee Joint Implant - [id number] IMPLANT Knee 000 38 / Implanted: Qty: 1 on 01/12/2016 by SAMIRA / Eloy Dumas MD [id number] Right Mc 10mm Used With E-F/8-11 - IPM Right: [employer] 12/21/2020 [id number] IMPLANT Knee 0 / Implanted: Qty: 1 on 01/12/2016 by SAMIRA / Eloy Dumas MD [id number] Tri Fem Cr Cmt Ccr Cnt Sz 9 R, IPM Right: [employer] 09/20/2025 [id number] Persona Knee Joint Implant - IMPLANT Knee 2 / [id number] DEVICES / Implanted: Qty: 1 on 01/12/2016 by [id number] Eloy Dumas MD Cement Bone R+G 1dose Palacos - Knee Joint Right: [employer] 2019 [id number] Implants Knee / Implanted: Qty: 2 on 01/12/2016 by / Eloy Dumas MD [id number] Results Not on fileafter 06/20/2016 Insurance Payer Benefit Subscriber ID Type Phone Address Plan / Group MEDICARE MEDICARE xxxxxxxxxx Medicare [place], [place] PART A AND B COMMERCIAL MISC MISC xxxxxxxxx[place] [address]
--- NOTE | 2017-06-21 10:38 | Diagnostic Imaging Report ---
PROCEDURE:CHEST SINGLE (PORTABLE) TECHNIQUE:Portable AP chest INDICATION:Post AICD placement COMPARISON:Patients [facility], DX, CHEST SINGLE (PORTABLE), 05/09/2017, 10:47. FINDINGS: See conclusion. CONCLUSION: 1. 3-lead AICD over the left hemithorax; leads intact. 2. Unchanged left hemidiaphragm elevation. No evidence of pneumothorax. Clear right lung. 3. Stable cardiomegaly with mild central vascular congestion. No pulmonary edema. 4. Intact skeleton. Left shoulder arthroplasty. Dictated by: Roe Urbina M.D. on 06/21/2017 at 10:40 Electronically approved by: Roe Urbina M.D. on 06/21/2017 at 10:40
[2017-06-21] MEDS ORDERED: ACETAMINOPHEN 325 MG TAB ONE (12:03)
--- NOTE | 2017-06-21 12:53 | Operative Report ---
DATE OF PROCEDURE: June 21, 2017 PREPROCEDURE DIAGNOSES 1. 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 2. Congestive heart failure, class III. 3. Left bundle-branch block. 4. History of myocardial infarction. POSTPROCEDURE DIAGNOSES 1. 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 2. Congestive heart failure, class III. 3. Left bundle-branch block. 4. History of myocardial infarction. COMPLICATIONS: None. ESTIMATED BLOOD LOSS: 5 mL. PROCEDURES PERFORMED 1. Biventricular cardiac defibrillator implant. 2. Moderate sedation. Moderate conscious sedation was provided under my direct supervision by sedation-trained nurse. Sedation approximate time 1 hour with Versed and fentanyl. There were no complications. See sedation report for details. DESCRIPTION OF PROCEDURE: After informed consent was obtained, the patient was brought to the electrophysiology laboratory in a fasting, nonsedated state. The area over his chest was prepped and draped in the usual sterile fashion. Moderate sedation and prophylactic antibiotic were given. One percent lidocaine was used as local anesthetic. A 3-cm skin incision was made in the left subclavicular area. Electrocautery and sharp and blunt dissection were used to reach the muscular fascia, and a pocket was created for eventual implantation of the device. Vascular access was obtained x3 in the left axillary vein using the modified Seldinger technique under fluoroscopic guidance, and 6-Kosovan, 9-Kosovan and 9.5-Kosovan sheaths were placed. The ventricular lead was advanced to the RV apex. R-wave 16, pacing 0.8 at 0.5, impedance 535. Coronary sinus was cannulated using AL2 catheter and a Wholey wire. The CS angiogram demonstrated a good posterolateral branch, successfully cannulated. The lead showed pacing threshold 1.0 at 0.5, impedance 890. The atrial lead to the right atrial appendage P wave 5, pacing 2.0 at 05, impedance 788. All 3 sheaths were removed from the body. The leads were secured to the fascia using #0 silk. The pocket was irrigated with antibiotic solution using the pulse gamemaster. Hemostasis was meticulous. Leads were connected to the device. The entire ICD system was placed in the pocket. The incision was closed using Vicryl and Dermabond. The patient tolerated the procedure well. The procedure was deemed complete. SUMMARY OF HARDWARE IMPLANTED: The new defibrillator is [employer], model #G158, [id number]. The atrial lead is [employer] 7741, [id number]. The right ventricular lead is [employer] 9684, [id number]. The left ventricular lead is [employer], [id number]. IMPRESSION: Successful biventricular cardiac defibrillator implant via left axillary vein. PLAN 1. Routine postop monitoring on telemetry bed. 2. Chest x-ray. 3. Follow up in 2 weeks. Job#: [id number]
[2017-06-21 13:30] VITALS: BP 139/62
--- OUTSIDE RECORDS SUMMARY | 2017-06-21 13:35 | XMS REPORT | Clinical Summary ---
Author [facility] Address Unknown Phone Unavailable Care Team Providers Care Manager Center Name Role Phone Asked, Pcp PCP Unavailable [...] INFLUENZA VACCINE 09/21/2017 Implants Implanted Type Area Space And Storage Clerk Device Expiration Model / Identifier Date Serial / Lot Tri Tib Cmt Stm 5 Deg Sz F R, IPM Right: [employer] 2025 [id number] Persona Knee Joint Implant - IMPLANT Knee 075 02 / [id number] DEVICES / Implanted: Qty: 1 on 01/12/2016 by [id number] Eloy Dumas MD All Poly Pat 38 Mm Annalee, Persona IPM Right: [employer] 11/20/2022 42 5400 Knee Joint Implant - [id number] IMPLANT Knee 000 38 / Implanted: Qty: 1 on 01/12/2016 by SAMIRA / Eloy Dumas MD [id number] Right Mc 10mm Used With E-F/8-11 - IPM Right: [employer] 12/21/2020 [id number] IMPLANT Knee 0 / Implanted: Qty: 1 on 01/12/2016 by SAMIRA / Eloy Dumas MD [id number] Tri Fem Cr Cmt Ccr Cnt Sz 9 R, IPM Right: [employer] 09/20/2025 [id number] Persona Knee Joint Implant - IMPLANT Knee 2 / [id number] DEVICES / Implanted: Qty: 1 on 01/12/2016 by [id number] Eloy Dumas MD Cement Bone R+G 1dose Palacos - Knee Joint Right: [employer] 2019 [id number] Implants Knee / Implanted: Qty: 2 on 01/12/2016 by / Eloy Dumas MD [id number] Results Not on fileafter 06/20/2016 Insurance Payer Benefit Subscriber ID Type Phone Address Plan / Group MEDICARE MEDICARE xxxxxxxxxx Medicare [place], [place] PART A [place] B COMMERCIAL MISC MISC xxxxxxxxxx [place] [address]
[2017-06-21 13:43] VITALS: BP 139/62
[2017-06-21] MEDS ORDERED: MORPHINE SULFATE 2 MG/ML SYR IV PRN ×3 (14:30→14:45)
[2017-06-21 17:31] VITALS: BP 141/58
[2017-06-21] MEDS ORDERED: ACETAMINOPHEN 325 MG TAB PO ONE (19:15)
[2017-06-21] MEDS ORDERED: ACETAMINOPHEN 325 MG TAB PO PRN (19:15)
[2017-06-21 20:00] VITALS: BP 152/71
[2017-06-21] MEDS ORDERED: ZOLPIDEM TARTRATE 5 MG TAB PO PRN (20:45)
[2017-06-21] MEDS ORDERED: FLUTICASONE PROPIONATE NASAL SPRAY NS SCH (20:45)
[2017-06-21] MEDS ORDERED: ALPRAZOLAM 0.25 MG TAB PO SCH (20:45)
[2017-06-21] MEDS ORDERED: FUROSEMIDE 40 MG TAB PO SCH (20:45)
[2017-06-21] MEDS: FLUTICASONE PROPIONATE NASAL SPRAY NS SCH (21:00)
[2017-06-21] MEDS ORDERED: ATORVASTATIN 10 MG TAB PO SCH (21:00)
[2017-06-22] VITALS: BP 159/69
[2017-06-22 04:00] VITALS: BP 173/76
[2017-06-22 07:46] VITALS: BP 165/80
[2017-06-22] MEDS ORDERED: ASPIRIN 81 MG CHEW TAB PO SCH (09:00)
[2017-06-22] MEDS ORDERED: AMIODARONE HCL 200 MG TAB PO SCH (09:00)
[2017-06-22] MEDS ORDERED: METHYLPREDNISOLONE 4 MG TAB PO SCH (09:00)
[2017-06-22] MEDS ORDERED: FUROSEMIDE 40 MG TAB PO SCH (09:00)
[2017-06-22] MEDS ORDERED: CARVEDILOL 3.125 MG TAB PO SCH (09:00)
[2017-06-22] MEDS ORDERED: FOLIC ACID 1 MG TAB PO SCH (09:00)
[2017-06-22] MEDS: FLUTICASONE PROPIONATE NASAL SPRAY NS SCH (09:09)
[2017-06-22 11:05] VITALS: BP 149/61
[2017-06-22 12:11] VITALS: BP 149/61
[2017-06-22] MEDS ORDERED: VANCOMYCIN 1GM/NS 250 ML 250 ML IV SCH (12:46)
[2017-06-22 15:41] VITALS: BP 126/74
== END 2017-06-22 15:27 | disposition home or self-care (01) ==
LOC: CATH LAB 07:16 → IMCU 13:30
PROVIDERS: ADMIT Internal Medicine; ATTEND Internal Medicine
PROC: 0JH609Z Insertion of Cardiac Resynchronization Defibrillator Pulse Generator into Chest Subcutaneous Tissue and Fascia, Open Approach (ICD-10-PCS; principal; 2017-06-21)
PROC: 02H63KZ Insertion of Defibrillator Lead into Right Atrium, Percutaneous Approach (ICD-10-PCS; 2017-06-21)
PROC: 02HK3KZ Insertion of Defibrillator Lead into Right Ventricle, Percutaneous Approach (ICD-10-PCS; 2017-06-21)
DX: I25.5 Ischemic cardiomyopathy (principal); I50.20 Unspecified systolic (congestive) heart failure; R00.0 Tachycardia, unspecified; I44.7 Left bundle-branch block, unspecified; I25.2 Old myocardial infarction; I25.10 Atherosclerotic heart disease of native coronary artery without angina pectoris; I10 Essential (primary) hypertension; M06.9 Rheumatoid arthritis, unspecified; Z88.8 Allergy status to other drugs, medicaments and biological substances; Z01.812 Encounter for preprocedural laboratory examination; Z79.82 Long term (current) use of aspirin; Z86.718 Personal history of other venous thrombosis and embolism; Z96.653 Presence of artificial knee joint, bilateral; Z95.5 Presence of coronary angioplasty implant and graft
CPT/HCPCS: 33225; 33249; 93640; C1721; C1896; C1900; 36415; 71045; 75820; 80048; 85025; 85610; G0378; J2001; J2250; J2270; J3370; J7030; J7040; J7509

== ENCOUNTER 2017-07-22 01:19 | Inpatient (IN) | payer MEDICARE, OTHER ==
[~2017-07-22] VITALS: Ht 167.6 cm; Wt 56.7 kg
[~2017-07-22 01:19] MED LIST changes: -BACITRACIN 50,000 UNIT VIAL ONE; -FENTANYL CITRATE/PF 100MCG/2 ML INJ ONE; -LIDOCAINE HCL 2% LOCAL 20 ML VIAL ONE; -MIDAZOLAM HCL 2 MG/2 ML VIAL ONE; -SODIUM CHLORIDE 0.9% 1000ML 2,000 ML ONE; -SODIUM CHLORIDE 0.9% 500ML 500 ML ONE; -VANCOMYCIN 1GM/NS 250 ML 250 ML ONE
--- OUTSIDE RECORDS SUMMARY | 2017-07-22 01:22 | XMS REPORT | Continuity of Care Document ---
Author Author [facility] Organization [facility] Address [address] [place] [address] Phone Unavailable Care Team Providers Care Graphic Design Professor Name Role Phone GINA CRUZ (JOSE) PCP Insurance Providers Guarantor Giuliana Caruso Address [address] [place] [address] Email N/A Payer Miscellaneous Indemnity Policy Number [id number] Subscriber's Name Bill Caruso Relationship 21 Unknown Effective Date 15 Payer Medicare A & B Policy Number [id number] Subscriber's Name Bill Caruso Relationship 18 Self / Same As Patient Group Name RETIRED Effective Date 01 Advance Directives Directive Response Recorded Date/Time Does the patient have an advance directive? Yes 06/21/17 3:00pm If yes, is advance directive on file with [facility]? Yes 06/21/17 3:00pm If not on file with [facility] will patient provide a copy? Yes 06/21/17 3:00pm Do you have a Directive to Physician? Yes 06/20/17 1:27pm Do you have a Medical Power of Juice Packaging Machines Setter? Yes 06/20/17 1:27pm Do you have an out of hospital Do Not Resuscitate Order? Yes 06/20/17 1:27pm Do you have any special needs we should be aware of? No 06/20/17 1:27pm Do you have a support person here with you today? No 06/20/17 1:27pm Did patient receive Notice of Privacy Practices? Yes 06/20/17 1:27pm Did patient receive patient rights and responsibilities? Yes 06/20/17 1:27pm Problems Medical Problem Onset Date Status CAD (coronary artery disease), tun[place]-biloxi coronary artery Unknown Medications Current Home Medications Medication Dose Units Route Directions Days Qty Instructions Start Date Alprazolam 0.25 Mg Tablet 0.25 Mg Oral Use As Directed 90 Tab Amiodarone Hcl 200 Mg Tablet 400 Mg Oral Daily 30 Days 05/13/17 Aspirin (Aspir-Low) 81 Mg Tablet.dr 81 Mg Oral Daily Atorvastatin Calcium 10 Mg Tablet 10 Mg Oral Bedtime Carvedilol (Coreg) 3.125 Mg Tab 3.125 Mg Oral Twice A Day 30 Days 05/13/17 Clindamycin Phos (Cleocin 600 [id number]) 600 Mg/50 Ml Soln Topically Use As Directed Fluticasone Propionate 16 Gm [place].susp Nasal Use As Directed Folic Acid 1 Mg Tablet 1 Mg Oral Daily Furosemide 40 Mg Tablet 40 Mg Oral Use As Directed 30 Tab TAKE ONE TABLET EVERY OTHER DAY Methylprednisolone 4 Mg Tablet 4 Mg Oral Daily Vitamin B12 Intramusc Use As Directed VITAMIN B12 SHOT ONCE A MONTH Zolpidem Tartrate 5 Mg Tablet 5 Mg Oral Bedtime as needed for Sleep Past Home Medications Medication Directions Ordered Status Calcium Crb&Cit/D3/Min34/Regina (Citracal + Bone Density Tablet) 1 Each Tablet, 630 Mg Oral Twice A Day Discontinued Glucosamine Hcl/Msm (Sm Glucosamine & Msm Tablet) 1 Each Tablet, Twice A Day Discontinued Hydroxychloroquine Sulfate 200 Mg Tablet, 400 Mg Oral Daily Discontinued Losartan/Hydrochlorothiazide (Losartan-Hctz 100-12.5 Mg Tab) 1 Each Tablet, 100 Mg Oral Daily Discontinued Methotrexate Sodium (Methotrexate) 2.5 Mg Tablet, 15 Mg Oral Weekly Discontinued Social History Social History Problem Response Recorded Date/Time Onset Date Status Hx Psychiatric Problems No 06/21/2017 3:00pm Not Applicable Not Applicable Hx Eating Disorder No 06/21/2017 3:00pm Not Applicable Not Applicable Hx Substance Use Disorder No 06/21/2017 3:00pm Not Applicable Not Applicable Hx Depression No 06/21/2017 3:00pm Not Applicable Not Applicable Hx Alcohol Use No 06/21/2017 3:00pm Not Applicable Not Applicable Hx Substance Use Treatment No 06/21/2017 3:00pm Not Applicable Not Applicable Hx Physical Abuse No 06/21/2017 3:00pm Not Applicable Not Applicable Smoking Status Start Date Stop Date Never Smoker Hospital Discharge Instructions No hospital discharge instruction information available. Plan of Care Discharge Date 06/22/17 3:27pm Disposition HOME, SELF-CARE Instructions/Education Provided Implantable Cardioverter-Defibrillator Prescriptions See Medication Section Additional Instructions/Education Resume low salt, low fat diet no heavy lifitng, no raing left arm, keep sling in place as Dr. Wright discussed with you. Functional Status Query Response Date Recorded Assistive Devices Straight Cane Standard Walker June 21, 2017 1:30pm Ambulation Ability Standby Assistance June 21, 2017 1:30pm Toileting Ability Minimum Assistance June 21, 2017 1:30pm Allergies, Adverse Reactions, Alerts Allergen Type Severity Reaction Status Last Updated Methocarbamol Allergy Intermediate RASH Active 06/20/17 Naproxen Allergy Mild RASH Active 06/20/17 Immunizations No immunization information available. Vital Signs Acute Vital Signs Vital Response Date/Time Temperature (Fahrenheit) 98.1 degrees F (97.6 - 99.5) 06/22/2017 3:41pm Pulse Pulse Rate (adult) 71 bpm (60 - 90) 06/22/2017 3:41pm Respiratory Rate 16 bpm (12 - 24) 06/22/2017 3:41pm Blood Pressure 126/74 mm Hg 06/22/2017 3:41pm Height 5 ft 6 in 06/21/2017 1:44pm Weight 134 lb 06/21/2017 3:00pm Body Mass Index 21.6 kg/m^2 06/21/2017 3:00pm Results Laboratory Results Test Name Result Units Flags Reference Collection Date/Time Result Date/ Time Comments Activated Partial Thromboplast Time 26.8 seconds 23.8-35.5 05/10/2017 7: 09am 05/10/2017 7:53am Urine Color YELLOW YELLOW 05/10/2017 5:10pm 05/10/2017 5:57pm Urine Clarity CLEAR CLEAR 05/10/2017 5:10pm 05/10/2017 5:57pm Urine Specific [place] 1.015 1.010-1.025 05/10/2017 5:10pm 2017 5:57pm Urine [...] Ratio 0.00 05/10/2017 5:10pm 05/10/2017 6: 12pm Uric Acid 10.5 mg/dL H 4.8-8.0 05/10/2017 7:0905/10/2017 4:16pm Phosphorus Level 3.5 MG/DL 2.3-4.7 05/11/2017 6:40am 05/11/2017 7:14am Magnesium Level 1.8 MG/DL 1.3-2.1 05/11/2017 6:40am 05/11/2017 7:14am Total Bilirubin 0.9 mg/dL 0.2-1.2 05/13/2017 6:1905/13/2017 7:25am Aspartate Amino Transf (AST/SGOT) 23 IU/L 5-34 05/13/2017 6:192017 7:25am Alanine Aminotransferase (ALT/SGPT) 39 IU/L 0-55 05/13/2017 6: 7:25am Total Protein 5.8 g/dL L 6.5-8.1 05/13/2017 6:05/13/2017 7:25am Albumin 3.5 g/dL 3.5-5.0 05/13/2017 6:1905/13/2017 7:25am Globulin 2.3 g/dL 2.3-3.5 05/13/2017 6:05/13/2017 7:25am Albumin/Globulin Ratio 1.5 0.8-2.0 05/13/2017 6:05/13/2017 7: 25am Alkaline Phosphatase 31 IU/L L 40-150 05/13/2017 6:05/13/2017 7: 25am B-Type Natriuretic Peptide 1708.3 pg/mL H 0-100 05/10/2017 7:092017 7:57am Creatine Kinase 102 IU/L 30-200 05/05/2017 11:18am 05/05/2017 12:13pm Creatine Kinase MB 5.50 ng/mL H 0-5.0 05/05/2017 11:18am 05/05/2017 12: 13pm Troponin I 0.198 ng/mL 0-0.300 05/05/2017 11:18am 05/05/2017 12:13pm Free Thyroxine Index 2.4523 1.4-3.8 05/07/2017 12:05/07/2017 1: 31pm Thyroxine (T4) 6.85 ug/dL 4.5-10.9 05/07/2017 12:pm 05/07/2017 1: 31pm Triiodothyronine (T3) Uptake 35.80 % 22.5-37.0 05/07/2017 12:pm 05/07 1:31pm Thyroid Stimulating Hormone (TSH) 3.038 uIU/mL 0.350-4.940 05/05/2017 3: 34am 05/05/2017 11:04am White Blood Count 7.22 x10e3/uL 4.8-10.8 06/20/2017 4:06/20/2017 4 :39pm Red Blood Count 3.97 x10e6/uL L 4.3-5.7 06/20/2017 4:pm 06/20/2017 4: 39pm Hemoglobin 12.1 g/dL L 14.0-18.0 06/20/2017 4:06/20/2017 4:39pm Hematocrit 35.5 % L 38.2-49.6 06/20/2017 4:06/20/2017 4:39pm Mean Corpuscular Volume 89.4 fL 81-99 06/20/2017 4:06/20/2017 4: 39pm Mean Corpuscular Hemoglobin 30.5 pg 28-32 06/20/2017 4:06/20/2017 4:39pm Mean Corpuscular Hemoglobin Concent 34.1 g/dL 31-35 06/20/2017 4:06/20/2017 4:39pm Red Cell Distribution Width 15.3 % H 11.7-14.4 06/20/2017 4:2017 4:39pm Platelet Count 196 x10e3/uL 140-360 06/20/2017 4:06/20/2017 4: 39pm Neutrophils (%) (Auto) 82.2 % H 38.7-80.0 06/20/2017 4:06/20/2017 4 :39pm Lymphocytes (%) (Auto) 10.0 % L 18.0-39.1 06/20/2017 4:06/20/2017 4 :39pm Monocytes (%) (Auto) 6.8 % 4.4-11.3 06/20/2017 4:pm 06/20/2017 4: 39pm Eosinophils (%) (Auto) 0.1 % 0.0-6.0 06/20/2017 4:pm 06/20/2017 4: 39pm Basophils (%) (Auto) 0.6 % 0.0-1.0 06/20/2017 4:pm 06/20/2017 4:39pm IM GRANULOCYTES % 0.3 % 0.0-1.0 06/20/2017 4:pm 06/20/2017 4:39pm Neutrophils # (Auto) 5.9 2.1-6.9 06/20/2017 4:pm 06/20/2017 4:39pm Lymphocytes # (Auto) 0.7 L 1.0-3.2 06/20/2017 4:pm 06/20/2017 4: 39pm Monocytes # (Auto) 0.5 0.2-0.8 06/20/2017 4:pm 06/20/2017 4:39pm Eosinophils # (Auto) 0.0 0.0-0.4 06/20/2017 4:pm 06/20/2017 4:39pm Basophils # (Auto) 0.0 0.0-0.1 06/20/2017 4:pm 06/20/2017 4:39pm Absolute Immature Granulocyte (auto 0.02 x10e3/uL 0-0.1 06/20/2017 4: pm 06/20/2017 4:39pm Prothrombin Time 13.8 seconds 11.9-14.5 06/20/2017 4:06/20/2017 4: 48pm Prothromb Time International Ratio 1.15 06/20/2017 4:2017 4:48pm Oral Anticoagulant Therapy INR Values: 1. Low Intensity Therapy 1.5 - 2.0 2. Moderate Intensity Therapy 2.0 - 3.0 3. High Intensity Therapy(1) 2.5 - 3.5 4. High Intensity Therapy(2) 3.0 - 4.0 5. Panic Value INR > 5.0 Sodium Level 141 mmol/L 136-145 06/20/2017 4:pm 06/20/2017 4:57pm Potassium Level 4.1 mmol/L 3.5-5.1 06/20/2017 4:25pm 06/20/2017 4:57pm Chloride Level 103 mmol/L 98-107 06/20/2017 4:25pm 06/20/2017 4:57pm Carbon Dioxide Level 28 mmol/L 22-29 06/20/2017 4:25pm 06/20/2017 4: 57pm Anion Gap 14.1 mmol/L 8-16 06/20/2017 4:25pm 06/20/2017 4:57pm Blood Urea Nitrogen 19 mg/dL 7-06/20/2017 4:25pm 06/20/2017 4:57pm Creatinine 1.20 mg/dL 0.72-1.25 06/20/2017 4:25pm 06/20/2017 4:57pm BUN/Creatinine Ratio 16 6-06/20/2017 4:25pm 06/20/2017 4:57pm Estimat Glomerular Filtration Rate 58 ML/MIN L 60- 06/20/2017 4:25pm 4:57pm Ranges were taken from the National Kidney Disease Education Program and the National Kidney Foundation literature. Reference ranges: 60 or greater: Normal 16-59 (for 3 consecutive months): Chronic kidney disease 15 or less: Kidney failure Glucose Level 111 mg/dL 74-118 06/20/2017 4:25pm 06/20/2017 4:57pm Calcium Level 9.5 mg/dL 8.4-10.2 06/20/2017 4:25pm 06/20/2017 4:57pm Procedures Procedure Status Date Provider(s) X-ray of chest, two views Active 05/05/17 BRITTNEY VALENCIA MD Ultrasound, renal Active 05/10/17 JESSICA GE Encounters Encounter Location Arrival/Admit Date Discharge/Depart Date Attending Provider Discharged Inpatient (obs[facility] 06/21/17 1:30pm 04/10 3:27pm DAMON FULTON MD Discharged Inpatient [facility] 05/04/17 5:27pm 05/13/17 1:55pm BRITTNEY VALENCIA MD
--- OUTSIDE RECORDS SUMMARY | 2017-07-22 01:22 | XMS REPORT | Clinical Summary ---
Author Author [facility] Address Unknown Phone Unavailable Care Team Providers Care Mill Set Up Name Role Phone Asked, Pcp PCP Unavailable [...] INFLUENZA VACCINE 09/21/2017 Implants Implanted Type Area Ballet Master/Mistress Device Expiration Model / Identifier Date Serial / Lot Tri Tib Cmt Stm 5 Deg Sz F R, IPM Right: [employer] 2025 [id number] Persona Knee Joint Implant - IMPLANT Knee 075 02 / [id number] DEVICES / Implanted: Qty: 1 on 01/12/2016 by [id number] Eloy Dumas MD All Poly Pat 38 Mm Annalee, Persona IPM Right: [employer] 11/20/2022 [id number] Knee Joint Implant - [id number] IMPLANT Knee 000 38 / Implanted: Qty: 1 on 01/12/2016 by SAMIRA / Eloy Dumas MD [id number] Right Mc 10mm Used With E-F/8-11 - IPM Right: JONN Vine 12/21/2020 [id number] IMPLANT Knee 0 / Implanted: Qty: 1 on 01/12/2016 by SAMIRA / Eloy Dumas MD [id number] Tri Fem Cr Cmt Ccr Cnt Sz 9 R, IPM Right: [employer] 09/20/2025 [id number] Persona Knee Joint Implant - IMPLANT Knee 2 / [id number] DEVICES / Implanted: Qty: 1 on 01/12/2016 by [id number] Eloy Dumas MD Cement Bone R+G 1dose Palacos - Knee Joint Right: JONN Vine 2019 [id number] Implants Knee / Implanted: Qty: 2 on 01/12/2016 by / Eloy Dumas MD [id number] Results Not on fileafter 2016 Insurance Payer Benefit Subscriber ID Type Phone Address Plan / Group MEDICARE MEDICARE xxxxxxxxxx Medicare [place], [place] PART A AND B COMMERCIAL MISC MISC xxxxxxxxx[place] [address]
[2017-07-22] MEDS ORDERED: CEFAZOLIN SOD 1 GM/D5W 50ML 50 ML IV ONE (01:45)
--- NOTE | 2017-07-22 02:28 | Diagnostic Imaging Report ---
EXAMINATION: Head CT without contrast. HISTORY:Fall. COMPARISON:Report of CT brain from 07/04/2013, images are not available for comparison at the time of interpretation. TECHNIQUE: Multidetector axial images were obtained from the foramen magnum to the vertex without contrast. The images were reconstructed using brain and bone algorithms. Thin section brain images were reformatted into coronal and sagittal planes. Intravenous contrast: None IMAGE QUALITY: Acceptable. FINDINGS: Skull/scalp: No lytic or blastic. lesions. No surgical changes. Parenchyma: Nonspecific bilateral frontoparietal confluent periventricular and patchy subcortical white matter hypodensity are likely related to small vessel ischemic changes. 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 No acute hemorrhage, mass or acute major vascular territorial infarct. Arteries: Atherosclerotic calcification in bilateral carotid siphon. Dural sinuses: No abnormal density suggestive of thrombosis. Ventricles: Mild compensated dilatation due to volume loss. No hydrocephalus. Extra-axial spaces: No abnormal density. Brain volume: Generalized age-related cerebral volume loss. Craniocervical junction: No mass, Chiari malformation, or basilar invagination. Sella: No mass. Paranasal/mastoid sinuses: Imaged portions unremarkable. IMPRESSION: 1. No acute intracranial abnormality. 2. Diffuse moderate to severe supratentorial white matter microvascular ischemic changes. 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 3. Generalized age-related cerebral volume loss. Signed by: Dr. Gladis Proctor M.D. on 07/22/2017 2:25 AM
--- NOTE | 2017-07-22 02:33 | Diagnostic Imaging Report ---
History: Fall. Comparison studies: None Technique: Axial images were obtained through the cervical region.. Coronal and sagittal images reconstructed from the axial data.. Intravenous contrast: None Findings: Fractures: None. Soft tissue injuries: None. Atlantoaxial articulation: Intact. Alignment: Normal lordosis. No scoliosis. Cervicomedullary junction: No abnormalities. The foramen magnum is patent. Soft tissues: No abnormalities. Vertebrae: No fractures, infection or neoplasm. Degenerative changes: C2-C3: Posterior disc osteophyte complex without canal stenosis. Moderate right foraminal stenosis due to facet and uncovertebral arthrosis. C3-C4: Posterior disc osteophyte complex without canal stenosis. Severe right foraminal stenosis due to facet and uncovertebral arthrosis. C4-C5: Mild bilateral foraminal stenosis due to facet and uncovertebral arthrosis. C5-C6: Posterior disc osteophyte complex without canal stenosis. Mild right and severe left foraminal stenosis due to facet and uncovertebral arthrosis. Posterior disc osteophyte complex without canal stenosis. Severe bilateral foraminal stenosis due to facet and uncovertebral arthrosis.. IMPRESSION: 1. No acute cervical spine fracture or dislocation. 2. Ligament, spinal cord and or vascular abnormalities cannot be excluded on the basis of this examination. 3. Cervical spondylosis as detailed above. Signed by: Dr. Gladis Proctor M.D. on 07/22/2017 2:29 AM
--- NOTE | 2017-07-22 03:10 | Diagnostic Imaging Report ---
PELVIS AP 1-2 VIEWS, SHOULDER LEFT COMPLETE Comparison: None Clinical history: Fall Findings: Pelvis: Limited portable view with portion of the right proximal femur excluded. Mild to moderate bilateral hip degenerative changes. No acute displaced fracture. Left shoulder: Left shoulder hemiarthroplasty with resurfacing prosthesis. Displaced periprosthetic oblique/spiral fracture of the proximal humerus. Impression: Displaced proximal left humeral fracture in the setting of a left shoulder hemiarthroplasty. Signed by: Dr Radha Barber MD on 07/22/2017 3:06 AM
--- NOTE | 2017-07-22 03:11 | Diagnostic Imaging Report ---
CHEST SINGLE (PORTABLE), 07/22/2017 1:35 AM Technique: CHEST SINGLE (PORTABLE) Comparison: 5.10.18 Clinical history: Fall Findings: See Impression Impression: Single portable view with lung apices partially excluded. 1. Lines/Tubes: Stable left chest wall 3-lead ICD. 2. Stable cardiomediastinal silhouette. Aortic calcifications. 3. Stable elevated left hemidiaphragm with overlying subsegmental atelectasis/scarring. 4. No effusion or pneumothorax. Signed by: Dr Radha Barber MD on 07/22/2017 3:08 AM
[2017-07-22] MEDS ORDERED: FENTANYL CITRATE/PF 100MCG/2 ML INJ ONE ×2 (03:40→15:00)
[2017-07-22] MEDS ORDERED: FENTANYL CITRATE/PF 100MCG/2 ML INJ IV ONE (03:45)
[2017-07-22] MEDS ORDERED: MUPIROCIN 2% OINT 22 GM TUBE ONE (03:51)
[2017-07-22] MEDS ORDERED: VANCOMYCIN 1GM/NS 250 ML 250 ML IV STA (03:56)
[2017-07-22] MEDS ORDERED: FENTANYL CITRATE/PF 100MCG/2 ML INJ IV STA (04:31)
[2017-07-22 04:36] LABS: BASOPHILS # (AUTO) 0.1 (0.0-0.1); BASOPHILS % 0.5 % (0.0-1.0); EOSINOPHILS % 0.1 % (0.0-6.0); HEMATOCRIT 35.1 % (38.2-49.6); HEMOGLOBIN 11.8 g/dL (14.0-18.0); LYMPHOCYTES # (AUTO) 0.9 (1.0-3.2); LYMPHOCYTES % 7.6 % (18.0-39.1); MEAN CORPUSCULAR HEMOGLOBIN 30.9 pg (28-32); MEAN CORPUSCULAR HGB CONC 33.6 g/dL (31-35); MEAN CORPUSCULAR VOLUME 91.9 fL (81-99); MONOCYTES # (AUTO) 0.6 (0.2-0.8); MONOCYTES % 5.6 % (4.4-11.3); NEUTROPHILS # (AUTO) 9.5 (2.1-6.9); NEUTROPHILS % 85.6 % (38.7-80.0); PLATELET COUNT 156 x10e3/uL (140-360); RED BLOOD COUNT 3.82 x10e6/uL (4.3-5.7)
[2017-07-22] MEDS ORDERED: LIDOCAINE 1% W/EPINEPHRINE 20 ML VIAL ONE (04:39)
[2017-07-22 04:49] LABS: INR 1.07; PROTHROMBIN TIME 13.1 seconds (11.9-14.5)
[2017-07-22 04:50] LABS: PARTIAL THROMBOPLASTIN TIME 24.5 seconds (23.8-35.5)
[2017-07-22 04:55] LABS: ALBUMIN 3.7 g/dL (3.5-5.0); ALBUMIN/GLOBULIN RATIO 1.2 (0.8-2.0); ANION GAP 15.1 mmol/L (8-16); CALCIUM 9.4 mg/dL (8.4-10.2); CREATININE, SERUM 1.28 mg/dL (0.72-1.25); MAGNESIUM 1.9 MG/DL (1.3-2.1); POTASSIUM 4.1 mmol/L (3.5-5.1)
[2017-07-22 05:01] LABS: CREATINE KINASE MB 4.6 ng/mL (0-5.0)
[2017-07-22] MEDS ORDERED: SODIUM CHLORIDE 0.9% 1000ML 1,000 ML IV SCH ×2 (05:08→13:00)
[2017-07-22] MEDS ORDERED: ONDANSETRON HCL 4 MG ORAL DISINTEGRATING TAB PO PRN ×2 (05:15→16:30)
[2017-07-22] MEDS ORDERED: MORPHINE SULFATE 2 MG/ML SYR IV PRN ×2 (05:15→16:30)
[2017-07-22] MEDS ORDERED: CEFAZOLIN SOD 1 GM VIAL ONE ×2 (05:17→18:39)
--- OUTSIDE RECORDS SUMMARY | 2017-07-22 05:22 | XMS REPORT | Clinical Summary ---
Author Author [facility] Address Unknown Phone Unavailable Care Team Providers Care Auto Tech Name Role Phone Asked, Pcp PCP Unavailable [...] INFLUENZA VACCINE 09/21/2017 Implants Implanted Type Area Food Counselor Device Expiration Model / Identifier Date Serial / Lot Tri Tib Cmt Stm 5 Deg Sz F R, IPM Right: [employer] 2025 [id number] Persona Knee Joint Implant - IMPLANT Knee 075 02 / [id number] DEVICES / Implanted: Qty: 1 on 01/12/2016 by [id number] Eloy Dumas MD All Poly Pat 38 Mm Annalee, Persona IPM Right: [employer] 11/20/2022 42 5400 Knee Joint Implant - [id number] IMPLANT Knee 000 38 / Implanted: Qty: 1 on 01/12/2016 by SAMIRA / Eloy Dumas MD [id number] Right Mc 10mm Used With E-F/8-11 - IPM Right: JONN [employer] 12/21/2020 [id number] IMPLANT Knee 0 / Implanted: Qty: 1 on 01/12/2016 by SAMIRA / Eloy Dumas MD [id number] Tri Fem Cr Cmt Ccr Cnt Sz 9 R, IPM Right: [employer] 09/20/2025 [id number] Persona Knee Joint Implant - IMPLANT Knee 2 / [id number] DEVICES / Implanted: Qty: 1 on 01/12/2016 by [id number] Eloy Dumas MD Cement Bone R+G 1dose Palacos - Knee Joint Right: JONN [employer] 2019 [id number] Implants Knee / Implanted: Qty: 2 on 01/12/2016 by / Eloy Dumas MD [id number] Results Not on fileafter 2016 Insurance Payer Benefit Subscriber ID Type Phone Address Plan / Group MEDICARE MEDICARE xxxxxxxxxx Medicare [place], [place] PART A AND B COMMERCIAL MISC MISC xxxxxxxxxx [place] [address]
--- OUTSIDE RECORDS SUMMARY | 2017-07-22 05:22 | XMS REPORT ---
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
--- OUTSIDE RECORDS SUMMARY | 2017-07-22 05:22 | XMS REPORT ---
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
--- OUTSIDE RECORDS SUMMARY | 2017-07-22 05:22 | XMS REPORT ---
Author Author Wilber Vargas [facility] [employer] Address Unknown Phone Unavailable Care Team Providers Care Psychologist Personnel Name Role Phone Wilber Vargas CP Unavailable Allergies, Adverse Reactions, Alerts Substance Reaction Event Type Methocarbamol Info Not Available Drug Allergy Anaprox DS Info Not Available Drug Allergy Rapaflo Info Not Available Non Drug Allergy Altace cough Non Drug Allergy Vitamin E Info Not Available Non Drug Allergy Boniva Info Not Available Non Drug Allergy Problems Problem Type Condition Code Onset Dates Condition Status Assessment Other terminal block assembler (current) drug therapy Z79.899 Active Problem Other half-way (current) drug therapy Z79.899 Active Assessment 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 Active Problem Vitamin D deficiency, unspecified E55.9 Active Problem Osteoarthritis of right knee M17.9 Active Problem Osteoporosis M81.0 Active Problem Spinal stenosis of lumbosacral region M48.07 Active Problem 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 Active Problem Right knee pain M25.561 Active Problem 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 Assessment Osteoarthritis of right knee M17.9 Active Assessment Right knee pain M25.561 Active Assessment Vitamin D deficiency, unspecified E55.9 Active Assessment Spinal stenosis of lumbosacral region M48.07 Active Assessment Osteoporosis M81.0 Active Assessment 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 Medications Medication Code System Code Instructions Start Date End Date Status Dosage Lipitor [facility] [address]-61 10 MG Orally Once a day Active 1 tablet Hydroxychloroquine Sulfate [facility] [address]-30 200 MG Orally bid Active 1 tablet with food or milk Centrum Silver [facility] [address]-66 OTC Orally once a day Active 1 Tablet Water Pills [facility] [address] - Orally Active as directed Folic Acid [facility] [address]-12 1 MG Orally Once a day Active 1 tablet Citracal Plus [facility] [address]-43 630 MG Once a day Active 2 Tablets MethylPREDNISolone [facility] [address]-75 4 MG Orally once a day Active 1 tablets with food or milk in the morning Aspirin [facility] [address]-33 81 mg Orally once a day Active 1 tablet Calcium + D [facility] [address]-36 600-200 MG-UNIT Orally Once a day Active 1 tablet with food HydrALAZINE HCl [facility] [address]-40 50 MG Orally Twice a day Active 1 tablet Losartan ND 0 100 MG Oncce a day Active 1 Tablet Vitamin B-12 [facility] [address]28[address] Once a month Active 1 injection Vital Signs Date/Time: August 20, 2016 BMI 22.91 Index Weight 146.3 lbs Height 67 in Temperature 98.4 F Cardiac Monitoring Heart Rate 80 /min Blood Pressure Diastolic 72 mm Hg Blood Pressure Systolic 140 mm Hg Results No Known Results Summary Purpose [employer] Submission
--- OUTSIDE RECORDS SUMMARY | 2017-07-22 05:22 | XMS REPORT ---
Author Author Wilber Vargas [facility] eClinicalWorks Address Unknown Phone Unavailable Care Team Providers Care Corn Sheller Operator Name Role Phone Wilber Vargas CP Unavailable Allergies, Adverse Reactions, Alerts Substance Reaction Event Type Methocarbamol Info Not Available Drug Allergy Anaprox DS Info Not Available Drug Allergy Boniva Info Not Available Non Drug Allergy Rapaflo Info Not Available Non Drug Allergy Altace cough Non Drug Allergy Vitamin E Info Not Available Non Drug Allergy Problems Problem Type Condition Code Onset Dates Condition Status Assessment Other termination clerk (current) drug therapy Z79.899 Active Assessment 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 Problem Right knee pain M25.561 Active Problem 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 Problem Osteoarthritis of right knee M17.9 Active Problem Other senior living (current) drug therapy Z79.899 Active Assessment 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 Active Problem Spinal stenosis of lumbosacral region M48.07 Active Problem 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 Active Medications Medication Code System Code Instructions Start Date End Date Status Dosage Hydroxychloroquine Sulfate [facility] [address]-70 200 MG Orally bid Active 1 tablet with food or milk Citracal Plus [facility] [address]-91 630 MG Once a day Active 2 Tablets Lipitor [facility] [address]-68 10 MG Orally Once a day Active 1 tablet Aspirin [facility] [address]-06 81 mg Orally once a day Active 1 tablet MethylPREDNISolone [facility] [address]-95 4 MG Orally once a day Active 1 tablets with food or milk in the morning Vitamin B-12 [facility] 48994-[address]31 Once a month Active 1 injection HydrALAZINE HCl [facility] [address]-46 50 MG Orally Twice a day Active 1 tablet Calcium + D [facility] [address]-85 600-200 MG-UNIT Orally Once a day Active 1 tablet with food Centrum Silver [facility] [address]-61 OTC Orally once a day Active 1 Tablet Losartan NDC 0 100 MG Oncce a day Active 1 Tablet Folic Acid [facility] [address]-69 1 MG Orally Once a day Active 1 tablet Vital Signs Date/Time: April 30, 2016 BMI 22.71 Index Weight 145 lbs Height 67 in Temperature 98.5 F Cardiac Monitoring Heart Rate 68 /min Blood Pressure Diastolic 72 mm Hg Blood Pressure Systolic 142 mm Hg Results No Known Results Summary Purpose eClinicalWorks Submission
--- OUTSIDE RECORDS SUMMARY | 2017-07-22 05:23 | XMS REPORT ---
Author Author Wilber Vargas eClinicalWorks Address Unknown Phone Unavailable Care Team Providers Care Vp Securities Name Role Phone Wilber Vargas CP Unavailable Encounters Encounter Location Date Restart MTX Wilber Vargas MD July 27, 2013 Refills Wilber Vargas MD August 22, 2013 Increased pain Wilber Vargas MD Oct 29, 2013 Refill Request Wilber Vargas MD Feb 11, 2014 3M F/U Wilber Vargas MD June 28, 2013 MRI of back Wilber Vargas MD June 28, 2013 Hospitalization/MRSA and pneumonia Wilber Vargas MD July 09, 2013 MRI Bi Hands In $44 Wilber Vargas MD Feb 27, 2014 DEXA Wilber Vargas MD Oct 02, 2014 Error/Refill request for bp meds Wilber Vargas MD Sep 30, 2014 f/u Wilber Vargas MD Dec 07, 2013 f/u Wilber Vargas MD Mar 22, 2014 refill Methlyprednisone Wilber Vargas MD August 21, 2014 Methylprednisolone Wilber Vargas MD August 22, 2014 Refill--Hydroxychloroquine Wilber Vargas MD July 22, 2014 Phone Call Wilber Vargas MD August 21, 2014 Refill--Folic Acid Wilber Vargas MD June 03, 2014 Unknown Wilber Vargas MD May 21, 2014 PT CALL Wilber Vargas MD April 26, 2014 Injection/Refill Wilber Vargas MD May 09, 2014 Unknown Wilber Vargas MD Sep 26, 2014 Problems Problem Type Condition ICD-9 Code Onset Dates Condition Status Problem Osteoarthrosis generalized, unspecified site 715.00 Active Problem Pain, back 724.5 Active Problem Pain in joint, hand 719.44 Active Problem Spinal stenosis of lumbar region 724.02 Active Problem Spasm of muscle 728.85 Active Problem Hypertension 997.91 Active Problem Long-term (current) use of other medications - High Risk V58.69 Active Problem Osteopenia 733.90 Active Problem Rheumatoid arthritis 714.0 Active Social History Social History Element Qualifiers Date Reported Tobacco Use: . Are you a:: never smoker Sep 26, 2014 Marital Status: . Sep 26, 2014 Caffeine: no. Sep 26, 2014 Exercise: yes. Sep 26, 2014 Alcohol: no. 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
--- OUTSIDE RECORDS SUMMARY | 2017-07-22 05:23 | XMS REPORT ---
Author Author Wilber Vargas [facility] eClinicalWorks Address Unknown Phone Unavailable Care Team Providers Care Manager Life Insurance Name Role Phone Wilber Vargas CP Unavailable Allergies, Adverse Reactions, Alerts Substance Reaction Event Type Methocarbamol Info Not Available Drug Allergy Anaprox DS Info Not Available Drug Allergy Rapaflo Info Not Available Non Drug Allergy Altace cough Non Drug Allergy Vitamin E Info Not Available Non Drug Allergy Boniva Info Not Available Non Drug Allergy Encounters Encounter Location Date 3M F/U Wilber Vargas MD June 28, 2013 Problems Problem Type Condition ICD-9 Code Onset Dates Condition Status Assessment Osteoarthrosis generalized, unspecified site 715.00 Active Assessment Pain, back 724.5 Active Assessment Long-term (current) use of other medications - High Risk V58.69 Active Assessment Unspecified drug dependence 304.90 Active Problem Rheumatoid arthritis 714.0 Active Problem Hypertension 997.91 Active Problem Osteopenia 733.90 Active Problem Pain, back 724.5 Active Assessment Rheumatoid arthritis 714.0 Active Problem Long-term (current) use of other medications - High Risk V58.69 Active Problem Osteoarthrosis generalized, unspecified site 715.00 Active Medications Medication Code System Code Instructions Start Date End Date Status Dosage MSM [facility] 53074-[address]10 Active Unknown Lipitor [facility] [address]-20 10 MG Orally Once a day Active 1 tablet Zolpidem Tartrate [facility] [address]-22 5 MG Orally Once a day Active 1 tablet at bedtime Losartan Potassium [facility] [address]-42 100 MG Orally Once a day Active 1 tablet Centrum Silver [facility] [address]-36 OTC Orally once a day Active as directed Hydrocodone-Acetaminophen [facility] [address]-65 7.5-325 MG Orally every 12 hours Feb 01, 2013 Active 1 tablet as needed Aspirin [facility] [address]-86 81 mg Orally once a day Active 1 tablet Folic Acid [facility] [address]-24 1 MG Orally Once a day Active 1 tablet Calcium + D [facility] [address]-34 600-200 MG-UNIT Orally Once a day Active 1 tablet with food Methotrexate [facility] [address]-44 2.5 MG Orally Once a week Active 6 tablet MethylPREDNISolone [facility] [address]-97 4 MG Orally once a day Active 1 tablets Cyanocobalamin [facility] [address]-43 1000 MCG/ML Injection once a month Active 0.1 ml Plaquenil [facility] [address]-16 200 MG Orally Once a day Active 2 tablets with food or milk Social History Social History Element Qualifiers Date Reported Tobacco Use: . Are you a:: never smoker June 28, 2013 Marital Status: . June 28, 2013 Caffeine: yes. frequency:, 1-2, cups/day June 28, 2013 Exercise: yes. June 28, 2013 Alcohol: no. 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
--- OUTSIDE RECORDS SUMMARY | 2017-07-22 05:23 | XMS REPORT ---
Author Author Wilber Vargas [facility] eClinicalWorks Address Unknown Phone Unavailable Care Team Providers Care Vegetable Inspector Name Role Phone Wilber Vargas Unavailable Encounters Encounter Location Date 3M F/U Wilber Vargas MD June 28, 2013 MRI of back Wilber Vargas MD June 28, 2013 Hospitalization/MRSA and pneumonia Wilber Vargas MD July 09, 2013 Problems Problem Type Condition ICD-9 Code Onset Dates Condition Status Problem Osteopenia 733.90 Active Problem Rheumatoid arthritis 714.0 Active Problem Spinal stenosis of lumbar region 724.02 Active Problem Osteoarthrosis generalized, unspecified site 715.00 Active Problem Pain, back 724.5 Active Problem Hypertension 997.91 Active Problem Long-term (current) use of other medications - High Risk V58.69 Active Social History Social History Element Qualifiers Date Reported Tobacco Use: . Are you a:: never smoker June 28, 2013 Marital Status: . June 28, 2013 Caffeine: yes. frequency:, 1-2, cups/day June 28, 2013 Exercise: yes. June 28, 2013 Alcohol: no. 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
--- OUTSIDE RECORDS SUMMARY | 2017-07-22 05:23 | XMS REPORT ---
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
--- OUTSIDE RECORDS SUMMARY | 2017-07-22 05:23 | XMS REPORT ---
Author Author Wilbre Vargas eClinicalWorks Address Unknown Phone Unavailable Care Team Providers Care Ironer Name Role Phone Wilber Vargas CP Unavailable Allergies, Adverse Reactions, Alerts Substance Reaction Event Type Methocarbamol Info Not Available Drug Allergy Anaprox DS Info Not Available Drug Allergy Rapaflo Info Not Available Non Drug Allergy Altace cough Non Drug Allergy Vitamin E Info Not Available Non Drug Allergy Boniva Info Not Available Non Drug Allergy Encounters Encounter Location Date Restart MTX Wilber Vargas MD July 27, 2013 Refills Wilber Vargas MD August 22, 2013 Increased pain Wilber Vargas MD Oct 29, 2013 Refill Request Wilber Vargas MD Feb 11, 2014 3M F/U Wilber Vargas MD June 28, 2013 MRI of back Wilber Vragas MD June 28, 2013 Hospitalization/MRSA and pneumonia [...] Call Wilber Vargas MD August 21, 2014 Unknown Wilber Vargas MD May 09, 2014 Refill--Folic Acid Wilber Vargas MD June 03, 2014 Unknown Wilber Vargas MD Dec 09, 2014 Unknown Wilber Vargas MD May 21, 2014 Unknown Wilber Vargas MD Jan 23, 2015 PT CALL Wilber Vargas MD April 26, 2014 Injection/Refill Wilber Vargas MD May 09, 2014 Unknown Wilber Vargas MD Sep 26, 2014 Problems Problem Type Condition ICD-9 Code Onset Dates Condition Status Problem Hypertension 997.91 Active Problem Osteopenia 733.90 Active Problem Rheumatoid arthritis 714.0 Active Problem Spinal stenosis of lumbosacral region M48.07 Active Problem 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 Active Problem 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 Problem Pain in joint, hand 719.44 Active Problem Spinal stenosis of lumbar region 724.02 Active Problem Other technician terminal and repeater (current) drug therapy Z79.899 Active Problem Spasm of muscle 728.85 Active Assessment Spinal stenosis of lumbosacral region M48.07 Active Assessment Other technician terminal and repeater (current) drug therapy Z79.899 Active Problem Pain, back 724.5 Active Assessment 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 Problem Osteoarthrosis generalized, unspecified site 715.00 Active Assessment 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 Active Problem Long-term (current) use of other medications - High Risk V58.69 Active Medications Medication Code System Code Instructions Start Date End Date Status Dosage Folic Acid [facility] [address]-58 1 MG Orally Once a day Dec 09, 2014 Mar 09, 2015 Active 1 tablet Losartan Unknown 0 100 MG Oncce a day Active 1 Tablet Centrum Silver [facility] [address]-07 OTC Orally once a day Active 1 Tablet HydrALAZINE HCl [facility] [address]-38 50 MG Orally Twice a day Active 1 tablet Plaquenil [facility] [address]-62 200 MG Orally Once a day Feb 18, 2015 Active 2 tablets with food or milk Citracal Plus [facility] [address]-80 630 MG Once a day Active 2 Tablets Vitamin B-12 [facility] 82335-88623 Once a month Active 1 injection Methotrexate [facility] [address]-55 2.5 MG Orally Once a week Active 6 tablet Calcium + D [facility] [address]-81 600-200 MG-UNIT Orally Once a day Active 1 tablet with food Aspirin [facility] [address]-94 81 mg Orally once a day Active 1 tablet Glucosamine Chond Complex/MSM [facility] 82686-89055 1500MG Twice a day Active 2 Tablets MethylPREDNISolone [facility] [address]-86 4 MG Orally once a day Active 1 tablets Lipitor [facility] [address]-25 10 MG Orally Once a day Active 1 tablet Social History Social History Element Qualifiers Date Reported Tobacco Use: . Are you a:: never smoker Jan 23, 2015 Marital Status: . Jan 23, 2015 Caffeine: no. Jan 23, 2015 Exercise: yes. Jan 23, 2015 Alcohol: no. 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
--- OUTSIDE RECORDS SUMMARY | 2017-07-22 05:23 | XMS REPORT ---
Author Author Wilber Vargas [facility] eClinicalWorks Address Unknown Phone Unavailable Care Team Providers Care Medical Economics Consultant Name Role Phone Wilber Vargas Unavailable Allergies, Adverse Reactions, Alerts Substance Reaction [...] pneumonia Wilber Vargas MD July 09, 2013 f/u Wilber Vagras MD Dec 07, 2013 Problems Problem Type Condition ICD-9 Code Onset Dates Condition Status Assessment Pain, back 724.5 Active Assessment Rheumatoid arthritis 714.0 Active Assessment Osteoarthrosis generalized, unspecified site 715.00 Active Assessment Long-term (current) use of other [...] Instructions Start Date End Date Status Dosage Centrum Silver [facility] [address]-47 OTC Orally once a day Active 1 Tablet Methotrexate [facility] [address]-09 2.5 MG Orally Once a week Active 6 tablet Vitamin B-12 [facility] [address] Once a month Active 1 injection Plaquenil [facility] [address]-93 200 MG Orally Once a day Active 2 tablets with food or milk Losartan Unknown 0 100 MG Oncce a day Active 1 Tablet Folic Acid [facility] [address]-12 1 MG Orally Once a day Active 1 tablet Glucosamine Chond Complex/MSM [facility] 41287-[address]261 1500MG Twice a day Active 2 Tablets Citracal Plus [facility] [address]-90 630 MG Once a day Active 2 Tablets MethylPREDNISolone [facility] [address]-42 4 MG Orally once a day Active 1 tablets Hydrocodone-Acetaminophen [facility] [address]-87 7.5-325 MG Orally every 12 hours Active 1 tablet as needed Aspirin [facility] [address]-38 81 mg Orally once a day Active 1 tablet HydrALAZINE HCl [facility] [address]-14 50 MG Orally Twice a day Active 1 tablet Lipitor [facility] [address]-43 10 MG Orally Once a day Active 1 tablet Zolpidem Tartrate [facility] [address]-36 5 MG Orally Once a day Active 1 tablet at bedtime Calcium + D [facility] [address]-95 600-200 MG-UNIT Orally Once a day Active 1 tablet with food Methotrexate Unknown 0 2.5mg Orally Once a week Active 6 tabs Social History Social History Element Qualifiers Date Reported Tobacco Use: . Are you a:: never smoker Dec 07, 2013 Marital Status: . Dec 07, 2013 Caffeine: no. Dec 07, 2013 Exercise: yes. Dec 07, 2013 Alcohol: no. 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
--- OUTSIDE RECORDS SUMMARY | 2017-07-22 05:23 | XMS REPORT ---
Author Author Wilber Vargas [facility] eClinicalWorks Address Unknown Phone Unavailable Care Team Providers Care Restaurant Managing Partner Name Role Phone Wilber Vargas CP Unavailable Allergies, Adverse Reactions, Alerts Substance Reaction Event Type Methocarbamol Info Not Available Drug Allergy Anaprox DS Info Not Available Drug Allergy Rapaflo Info Not Available Non Drug Allergy Altace cough Non Drug Allergy Vitamin E Info Not Available Non Drug Allergy Boniva Info Not Available Non Drug Allergy Encounters Encounter Location Date MRI Bi Hands In $44 Wilber Vargas MD Feb 27, 2014 refill Methlyprednisone Wilber Vargas MD August [...] Unknown Wilber Vargas MD Sep 26, 2014 Restart MTX Wilber Vargas MD July 27, 2013 Refills Wilber Vargas MD August 22, 2013 Increased pain Wilber Vargas MD Oct 29, 2013 Refill Request Wilber Vargas MD Feb 11, 2014 3M F/U Wilber Vargas MD June 28, 2013 MRI of back Wilber Vargas MD June 28, 2013 Hospitalization/MRSA and pneumonia Wilber Vargas MD July 09, 2013 DEXA Wilber Vargas MD Oct 02, 2014 Error/Refill request for bp meds Wilber Vargas MD Sep 30, 2014 f/u Wilber Vargas MD Dec 07, 2013 f/u Wilber Vargas MD Mar 22, 2014 3 MTH FU Wilber Vargas MD April 25, 2015 Synvisc Wilber Vargas MD April 25, 2015 Unknown Wilber Vargas MD May 09, 2014 Unknown Wilber Vargas MD Dec 09, 2014 Unknown Wilber Vargas MD Jan 23, 2015 REFILL--FOLIC ACID Wilber Vargas MD Mar 17, 2015 Problems Problem Type Condition ICD-9 Code Onset Dates Condition Status Problem Rheumatoid arthritis 714.0 Active Problem Spinal stenosis of lumbar region 724.02 Active Problem Osteopenia 733.90 Active Problem 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 Problem Spinal stenosis of lumbosacral region M48.07 Active Problem Right knee pain M25.561 Active Problem Spasm of muscle 728.85 Active Problem Pain in joint, hand 719.44 Active Problem 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 Active Problem Other technician terminal and repeater (current) drug therapy Z79.899 Active Assessment Spinal stenosis of lumbosacral region M48.07 Active Assessment 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 Assessment Pain in right lower leg M79.661 Active Assessment Right knee pain M25.561 Active Problem Pain, back 724.5 Active Problem Osteoarthrosis generalized, unspecified site 715.00 Active Assessment Encounter for long-term (current) use of other high-risk medications Z79.899 Active Problem Long-term (current) use of other medications - High Risk V58.69 Active Assessment 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 Active Problem Hypertension 997.91 Active Medications Medication Code System Code Instructions Start Date End Date Status Dosage Lipitor [facility] [address]-62 10 MG Orally Once a day Active 1 tablet Vitamin B-12 [facility] 35880-[address]188 Once a month Active 1 injection Calcium + D [facility] [address]-58 600-200 MG-UNIT Orally Once a day Active 1 tablet with food Glucosamine Chond Complex/MSM [facility] 29[address]758 1500MG Twice a day Active 2 Tablets Folic Acid [facility] [address]-77 1 MG Orally Once a day Mar 17, 2015 Active 1 tablet Losartan Unknown 0 100 MG Oncce a day Active 1 Tablet Citracal Plus [facility] [address]-99 630 MG Once a day Active 2 Tablets Methotrexate [facility] [address]-31 2.5 MG Orally Once a week Active 6 tablet HydrALAZINE HCl [facility] [address]-64 50 MG Orally Twice a day Active 1 tablet Centrum Silver [facility] [address]-74 OTC Orally once a day Active 1 Tablet MethylPREDNISolone [facility] [address]-65 4 MG Orally once a day Active 1 tablets Hydroxychloroquine Sulfate [facility] [address]-00 200 MG Orally bid Active 1 tablet with food or milk Aspirin [facility] [address]-18 81 mg Orally once a day Active 1 tablet Social History Social History Element Qualifiers Date Reported Tobacco Use: . Are you a:: never smoker April 25, 2015 Marital Status: . April 25, 2015 Caffeine: no. April 25, 2015 Exercise: yes. April 25, 2015 Alcohol: no. 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
--- OUTSIDE RECORDS SUMMARY | 2017-07-22 05:23 | XMS REPORT ---
Author Author Wilber Vargas eClinicalWorks Address Unknown Phone Unavailable Care Team Providers Care Counselor Dormitory Name Role Phone Wilber Vargas CP Unavailable Encounters Encounter Location Date MRI Bi Hands [...] f/u Wilber Vargas MD Mar 22, 2014 Synvisc Wilber Vargas MD April 25, 2015 3 MTH FU Wilber Vargas MD April 25, 2015 Lab order Wilber Vargas MD April 30, 2015 Unknown Wilber Vargas MD May 09, [...] without rheumatoid factor M06.09 Active Problem Other shelter (current) drug therapy Z79.899 Active Problem Pain, back 724.5 Active Problem Osteoarthrosis generalized, unspecified site 715.00 Active Assessment Encounter for long-term (current) use of other high-risk medications Z79.899 Active Problem Long-term (current) use of other medications - High Risk V58.69 Active Assessment 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 Are you a:: never smoker April 25, 2015 Marital Status: . April 25, 2015 Caffeine: no. April 25, 2015 Exercise: yes. April 25, 2015 Alcohol: no. 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
--- OUTSIDE RECORDS SUMMARY | 2017-07-22 05:23 | XMS REPORT ---
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 Active Assessment Other terminal operations manager (current) drug therapy Z79.899 Active Problem Osteoporosis M81.0 Active Problem Osteoarthritis of right knee M17.9 Active Problem Vitamin D deficiency, unspecified E55.9 Active Problem 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 Problem Other terminal operations manager (current) drug therapy Z79.899 Active Problem Right knee pain M25.561 Active Problem Spinal stenosis of lumbosacral region M48.07 Active Medications Medication Code System Code Instructions Start Date End Date Status Dosage Centrum Silver ND 41605957173 OTC Orally once a day Active 1 Tablet Aspirin ND 39197227122 81 mg Orally once a day Active 1 tablet Zolpidem Tartrate ND 54809975486 5 MG Orally Once a day Active 1 tablet at bedtime Carvedilol ND 75078582879 3.125 MG Orally Active as directed Citracal Plus ND 79843613070 630 MG Once a day Active 2 Tablets Lipitor ND 01678426282 10 MG Orally Once a day Active 1 tablet Folic Acid ND 81327570645 1MG Orally Once a day Active 1 TABLET MethylPREDNISolone ND 94486443287 4 MG Orally Active 1 tablet with food or milk in the morning Alprazolam ND 29681025173 0.25 MG Orally Twice a day Active 1 tablet Furosemide ND 29474818254 40 MG Orally Once a day Active 1 tablet Vitamin B-12 [facility] 07294346910 Once a month Active 1 injection Calcium + D [facility] 23914010244 600-200 MG-UNIT Orally Once a day Active 1 tablet with food Vital Signs Date/Time: May 23, 2017 BMI 21.96 Index Weight 132 lbs Height 65 in Temperature 98.1 F Cardiac Monitoring Heart Rate 60 /min Blood Pressure Diastolic 74 mm Hg Blood Pressure Systolic 126 mm Hg Results No Known Results Summary Purpose eClinicalWorks Submission
--- OUTSIDE RECORDS SUMMARY | 2017-07-22 05:23 | XMS REPORT ---
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
--- OUTSIDE RECORDS SUMMARY | 2017-07-22 05:23 | XMS REPORT ---
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
--- OUTSIDE RECORDS SUMMARY | 2017-07-22 05:23 | XMS REPORT ---
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
--- OUTSIDE RECORDS SUMMARY | 2017-07-22 05:23 | XMS REPORT ---
Author Author Wilber Vargas [facility] eClinicalWorks Address Unknown Phone Unavailable Care Team Providers Care Shift Supervisor Name Role Phone Wilber Vargas CP Unavailable [...] f/u Wilber Vargas MD Mar 22, 2014 Unknown Wilber Vargas MD May 09, [...] of lumbar region 724.02 Active Problem Other termite treater helper (current) drug therapy Z79.899 Active Problem Spasm of muscle 728.85 Active Problem Pain, back 724.5 Active Problem Osteoarthrosis generalized, unspecified site 715.00 Active Problem Long-term (current) use of other medications - High Risk V58.69 Active Medications Medication Code System Code Instructions Start Date End Date Status Dosage [facility] [address]-49 1 MG Orally Once a day Mar 17, 2015 Active 1 tablet Social History Social History Element Qualifiers Date Reported Tobacco Use: . Are you a:: never smoker Jan 23, 2015 Marital Status: . Jan 23, 2015 Caffeine: no. Jan 23, 2015 Exercise: yes. Jan 23, 2015 Alcohol: no. 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
--- OUTSIDE RECORDS SUMMARY | 2017-07-22 05:23 | XMS REPORT ---
Author Author Wilber Vargas [facility] eClinicalWorks Address Unknown Phone Unavailable Care Team Providers Care Lay Out Technician Name Role Phone Wilber Vargas CP Unavailable Encounters Encounter Location Date Restart MTX Wilber Vargas MD July 27, 2013 Refills Wilber Vargas MD August 22, 2013 Increased pain Wilber Vargas MD Oct 29, 2013 3M F/U Wilber Vargas MD June 28, [...] Use: . Are you a:: never smoker August 21, 2013 Marital Status: . August 21, 2013 Caffeine: yes. frequency:, 1-2, cups/day August 21, 2013 Exercise: yes. August 21, 2013 Alcohol: no. 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
--- OUTSIDE RECORDS SUMMARY | 2017-07-22 05:23 | XMS REPORT ---
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
--- OUTSIDE RECORDS SUMMARY | 2017-07-22 05:23 | XMS REPORT ---
Author Author Wilber Vargas eClinicalWorks Address Unknown Phone Unavailable Care Team Providers Care Leadite Man Name Role Phone Wilber Vargas CP Unavailable [...] $44 Wilber Vargas MD Feb 27, 2014 f/u Wilber Vargas MD Dec 07, 2013 f/u Wilber Vargas MD Mar 22, 2014 Refill--Folic Acid Wilber Vargas MD June 03, 2014 PT CALL Wilber Vargas MD April 26, 2014 Injection/Refill Wilber Vargas MD May 09, 2014 Problems Problem Type Condition ICD-9 Code [...] 733.90 Active Problem Rheumatoid arthritis 714.0 Active Medications Medication Code System Code Instructions Start Date End Date Status Dosage Folic Acid [facility] [address]-91 1 MG Orally Once a day Nov 30, 2014 Active 1 tablet Social History Social History Element Qualifiers Date Reported Tobacco Use: . Are you a:: never smoker May 21, 2014 Marital Status: . May 21, 2014 Caffeine: no. May 21, 2014 Exercise: yes. May 21, 2014 Alcohol: no. 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
--- OUTSIDE RECORDS SUMMARY | 2017-07-22 05:23 | XMS REPORT ---
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
--- OUTSIDE RECORDS SUMMARY | 2017-07-22 05:23 | XMS REPORT ---
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
--- OUTSIDE RECORDS SUMMARY | 2017-07-22 05:23 | XMS REPORT ---
Author Author Wilber Vargas [facility] eClinicalWorks Address Unknown Phone Unavailable Care Team Providers Care Line Crew Supervisor Name Role Phone Wilber Vargas Unavailable Encounters Encounter Location Date Restart MTX Wilber Vargas MD July 27, 2013 Refills Wilber Vargas MD August 22, 2013 3M F/U Wilber Vargas MD June [...] no. 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
--- OUTSIDE RECORDS SUMMARY | 2017-07-22 05:23 | XMS REPORT ---
Author Author Wilber Vargas [facility] eClinicalWorks Address Unknown Phone Unavailable Care Team Providers Care Entry Level Software Developer Name Role Phone Wilber Vargas CP Unavailable [...] without rheumatoid factor M06.09 Active Problem Other oil heaterman (current) drug therapy Z79.899 Active Assessment Spinal [...] Start Date End Date Status Dosage Lipitor [facility] [address]-14 10 MG Orally Once a day Active 1 tablet Vitamin B-12 [facility] [address] Once a month Active 1 injection Calcium + D [facility] [address]-49 600-200 MG-UNIT Orally Once a day Active 1 tablet with food Glucosamine Chond Complex/MSM [facility] 50252-40131 1500MG Twice a day Active 2 Tablets Folic Acid [facility] [address]-25 1 MG Orally Once a day Mar 17, 2015 Active 1 tablet Losartan Unknown 0 100 MG Oncce a day Active 1 Tablet Citracal Plus [facility] [address]-01 630 MG Once a day Active 2 Tablets Methotrexate [facility] [address]-13 2.5 MG Orally Once a week Active 6 tablet HydrALAZINE HCl [facility] [address]-24 50 MG Orally Twice a day Active 1 tablet Centrum Silver [facility] [address]-94 OTC Orally once a day Active 1 Tablet MethylPREDNISolone [facility] [address]-15 4 MG Orally once a day Active 1 tablets Hydroxychloroquine Sulfate [facility] [address]-07 200 MG Orally bid Active 1 tablet with food or milk Aspirin [facility] [address]-58 81 mg Orally once a day Active 1 tablet Social History Social History Element Qualifiers Date Reported Tobacco Use: . Are you a:: never smoker April 25, 2015 Marital Status: . April 25, 2015 Caffeine: no. April 25, 2015 Exercise: yes. April 25, 2015 Alcohol: no. 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
--- OUTSIDE RECORDS SUMMARY | 2017-07-22 05:23 | XMS REPORT ---
Author Author Wilber Vargas eClinicalWorks Address Unknown Phone Unavailable Care Team Providers Care Provider Scribe Name Role Phone Wilber Vargas CP Unavailable [...] without rheumatoid factor M06.09 Active Problem Other terminal gauger supervisor (current) drug therapy Z79.899 Active Problem Pain, back 724.5 Active Problem Osteoarthrosis generalized, unspecified site 715.00 Active Problem Long-term (current) use of other medications - High Risk V58.69 Active Problem Hypertension 997.91 Active Social History Social History Element Qualifiers Date Reported Tobacco Use: . Are you a:: never smoker April 25, 2015 Marital Status: . April 25, 2015 Caffeine: no. April 25, 2015 Exercise: yes. April 25, 2015 Alcohol: no. 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
--- OUTSIDE RECORDS SUMMARY | 2017-07-22 05:23 | XMS REPORT ---
Author Author Wilber Vargas [facility] eClinicalWorks Address Unknown Phone Unavailable Care Team Providers Care Soil Biology Teacher Name Role Phone Wilber Vargas Unavailable Encounters Encounter Location Date 3M F/U Wilber Vargas MD June 28, 2013 MRI of back Wilber Vargas MD June 28, 2013 Problems Problem Type Condition ICD-9 Code Onset Dates Condition Status Assessment Spinal stenosis of lumbar region 724.02 Active Problem Osteopenia 733.90 Active Problem Rheumatoid [...] no. 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
--- OUTSIDE RECORDS SUMMARY | 2017-07-22 05:23 | XMS REPORT ---
Author Author Wilber Vargas [facility] eClinicalWorks Address Unknown Phone Unavailable Care Team Providers Care Dimension Specification Inspector Name Role Phone Wilber Vargas CP Unavailable [...] involving multiple joints M15.0 Active Problem Other care home (current) drug therapy Z79.899 Active Problem Right knee pain M25.561 Active Problem Spinal stenosis of lumbosacral region M48.07 Active Assessment Spinal stenosis of lumbosacral region M48.07 Active Assessment Other care home (current) drug therapy Z79.899 Active Assessment Osteoporosis M81.0 Active Assessment Right knee pain M25.561 Active Medications Medication Code System Code Instructions Start Date End Date Status Dosage Centrum Silver ND 62920633085 OTC Orally once a day Active 1 Tablet Calcium + D ND 34330265732 600-200 MG-UNIT Orally Once a day Active 1 tablet with food Losartan NDC 0 100 MG Oncce a day Active 1 Tablet Vitamin B-12 ND 41076281092 Once a month Active 1 injection HydrALAZINE HCl NDC 69660108399 50 MG Orally Twice a day Active 1 tablet Folic Acid ND 04491274933 1MG Active TAKE ONE TABLET BY MOUTH ONCE DAILY Aspirin NDC 69840451310 81 mg Orally once a day Active 1 tablet Lipitor ND 72351987758 10 MG Orally Once a day Active 1 tablet Citracal Plus ND 93153273646 630 MG Once a day Active 2 Tablets MethylPREDNISolone ND 84707792634 4 MG Orally once a day Active 2 tablets with food or milk in the morning Hydroxychloroquine Sulfate ND 64911874019 200MG Active TAKE ONE TABLET BY MOUTH TWICE DAILY WITH FOOD OR MILK Vital Signs Date/Time: Feb 22, 2017 BMI 25.12 Index Weight 151 lbs Height 65 in Temperature 98.6 F Cardiac Monitoring Heart Rate 68 /min Blood Pressure Diastolic 64 mm Hg Blood Pressure Systolic 130 mm Hg Results No Known Results Summary Purpose eClinicalWorks Submission
--- OUTSIDE RECORDS SUMMARY | 2017-07-22 05:23 | XMS REPORT ---
Author Author Wilber Vargas [facility] eClinicalWorks Address Unknown Phone Unavailable Care Team Providers Care Business Intelligence Administrator Name Role Phone Wilber Vargas CP Unavailable [...] Instructions Start Date End Date Status Dosage Methotrexate Unknown 0 2.5mg Orally Once a week Active 6 tabs Plaquenil [facility] [address]-87 200 MG Orally Once a day Active 2 tablets with food or milk Social History Social History Element Qualifiers Date Reported Tobacco Use: . Are you a:: never smoker August 21, 2013 Marital Status: . August 21, 2013 Caffeine: yes. frequency:, 1-2, cups/day August 21, 2013 Exercise: yes. August 21, 2013 Alcohol: no. 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
--- OUTSIDE RECORDS SUMMARY | 2017-07-22 05:23 | XMS REPORT ---
Author Author Wilber Vargas [facility] eClinicalWorks Address Unknown Phone Unavailable Care Team Providers Care Mixed Livestock Farmer Name Role Phone Wilber Vargas CP Unavailable Allergies, Adverse Reactions, Alerts Substance Reaction Event Type Methocarbamol Info Not Available Drug Allergy Anaprox DS Info Not Available Drug Allergy Vitamin E Info Not Available Non Drug Allergy Boniva Info Not Available Non Drug Allergy Rapaflo Info Not Available Non Drug Allergy Altace cough Non Drug Allergy Problems Problem Type Condition Code Onset Dates Condition Status Assessment Other roasterman (current) drug therapy Z79.899 Active Problem Other mcfp (current) drug therapy Z79.899 Active Assessment 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 [address]-57 81 mg Orally once a day Active [address] [facility] [address]-30 10 MG Orally Once a day Active 1 tablet Vitamin B-[address] [facility] [address] Once a month Active 1 injection Losartan ND 0 100 MG Oncce a day Active 1 Tablet Hydroxychloroquine Sulfate [facility] [address]-43 200 MG Orally bid Active 1 tablet with food or milk Calcium + D [facility] [address]-70 600-200 MG-UNIT Orally Once a day Active 1 tablet with food Folic Acid [facility] [address]-43 1 MG Orally Once a day Active [address] [facility] [address]-71 4 MG Orally once a day Active 1 tablets with food or milk in the morning Citracal Plus [facility] [address]-60 630 MG Once a day Active 2 Tablets HydrALAZINE HCl [facility] [address]-16 50 MG Orally Twice a day Active 1 tablet Centrum Silver [facility] [address]-87 OTC Orally once a day Active 1 Tablet Vital Signs Date/Time: Nov 18, 2016 BMI 24.63 Index Weight 148 lbs Height 65 in Temperature 97.9 F Cardiac Monitoring Heart Rate 70 /min Blood Pressure Diastolic 60 mm Hg Blood Pressure Systolic 126 mm Hg Results No Known Results Summary Purpose eClinicalWorks Submission
--- OUTSIDE RECORDS SUMMARY | 2017-07-22 05:24 | XMS REPORT | Summary of Care ---
Author Author [facility] Organization [facility] Address Unknown Phone Unavailable Encounter ADDIE Thorpe(ANDRE) [id number] Date(s): 07/14/15 - 07/15/15 [facility] [address] [facility] [facility], [address] Vital Signs No data available for this section Problem List Condition Effective Dates Status Health Status Informant Arthritis(Confirmed) Resolved 1 Cancer(Confirmed)2 Resolved Cataracts, Resolved bilateral(Confirmed) CHF (congestive Resolved heart failure)(Confirmed) Deafness(Confirmed)3 Resolved Peripheral venous 02/18/14 Active insufficiency4 1rheumatoid arthritis 2prostate cancer 3uses hearing aid 4Data migrated from Simplist on 07/23/14. Allergies, Adverse Reactions, Alerts Substance Reaction Severity Status Anaprox-DS Active methocarbamol1 Anaprox-DS Active 1Data migrated from Simplist on 06/20/14. Originally documented as METHOCABAMOL. Medications atorvastatin 10 mg oral tablet 10 mg=1 tab, PO, Bedtime, # 90 tab, 3 Refill(s), Pharmacy: [facility] Start Date: 07/14/15 Status: Ordered hydrALAZINE 50 mg oral tablet 50 mg=1 tab, PO, BID, # 180 tab, 3 Refill(s), Pharmacy: [facility] Start Date: 07/14/15 Status: Ordered losartan 100 mg oral tablet 100 mg=1 tab, PO, Daily, # 90 tab, 3 Refill(s), Pharmacy: [facility] Start Date: 07/14/15 Status: Ordered Results No data available for this section Immunizations No data available for this section Procedures Procedure Date Related Diagnosis Body Site Knee replacement Radiation therapy procedure or service1 Shoulder replacement 1for Prostate Cancer in Social History Social History Type Response Smoking Status Unknown if ever smoked; Exposure to Tobacco Smoke Unable to obtain; Cigarette Smoking Last 365 Days Unable to obtain; Reg Smoking Cessation Counseling No Assessment and Plan No data available for this section
--- OUTSIDE RECORDS SUMMARY | 2017-07-22 05:24 | XMS REPORT ---
Author Author Wilber Vargas [facility] eClinicalWorks Address Unknown Phone Unavailable Care Team Providers Care Registrar [employer] Or [employer] Name Role Phone Wilber Vargas CP Unavailable [...] $44 Wilber Vargas MD Feb 27, 2014 Refills Wilber Vargas MD September 01, 2015 Injections Wilber Vargas MD August 27, 2015 Injections Wilber Vargas MD June 18, 2015 Knee replacement/Injections Wilber Vargas MD Feb 12, 2016 refill Methlyprednisone Wilber Vargas MD August 21, 2014 Follow up Wilber Vargas MD Mar 01, 2016 Methylprednisolone Wilber Vargas MD August 22, 2014 Refill Wilber Vargas MD Nov 10, 2015 Refill--Hydroxychloroquine Wilber Vargas MD July 22, 2014 Follow up Wilber Vargas MD Nov 18, 2015 Phone Call Wilber Vargas MD August 21, [...] April 30, 2015 Unknown Wilber Vargas MD June 03, 2015 Unknown Wilber Vargas MD May 09, 2014 Unknown Wilber Vargas MD Dec 09, 2014 Unknown Wilber Vargas MD Jan 23, 2015 REFILL--FOLIC ACID Wilber Vargas MD Mar 17, 2015 Problems Problem Type Condition ICD-9 Code Onset Dates Condition Status Assessment 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 Assessment Spinal stenosis of lumbosacral region M48.07 Active Problem Right knee pain M25.561 Active Problem 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 Problem Osteoarthritis of right knee M17.9 Active Problem Other halfway (current) drug therapy Z79.899 Active Assessment 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 Active Problem Spinal stenosis of lumbosacral region M48.07 Active Problem 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 Active Medications Medication Code System Code Instructions Start Date End Date Status Dosage MethylPREDNISolone [facility] [address]-03 4 MG Orally once a day Active 1 tablets Prevagen [facility] 73933-26048 10 MG Orally Once a day Active as directed Hydroxychloroquine Sulfate [facility] [address]-09 200 MG Orally bid Active 1 tablet with food or milk Citracal Plus [facility] [address]-08 630 MG Once a day Active 2 Tablets Calcium + D [facility] [address]-03 600-200 MG-UNIT Orally Once a day Active 1 tablet with food Aspirin [facility] [address]-61 81 mg Orally once a day Active 1 tablet Lipitor [facility] [address]-63 10 MG Orally Once a day Active 1 tablet Vitamin B-12 [facility] 04366-73399 Once a month Active 1 injection Losartan Unknown 0 100 MG Oncce a day Active 1 Tablet Folic Acid [facility] [address]-79 1 MG Orally Once a day Mar 17, 2015 Active 1 tablet HydrALAZINE HCl [facility] [address]-88 50 MG Orally Twice a day Active 1 tablet Centrum Silver [facility] [address]-31 OTC Orally once a day Active 1 Tablet Social History Social History Element Qualifiers Date Reported Tobacco Use: . Are you a:: never smoker Mar 01, 2016 Marital Status: . Mar 01, 2016 Caffeine: no. Mar 01, 2016 Exercise: yes. Mar 01, 2016 Alcohol: no. 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
--- OUTSIDE RECORDS SUMMARY | 2017-07-22 05:24 | XMS REPORT | Summary of Care ---
Author Author [facility] Organization [facility] Address Unknown Phone Unavailable Encounter HQ Maurilio(FIN) [id number] Date(s): 09/30/14 - 10/01/14 [facility] [address], [place], [address] Vital Signs No data available for this section Problem List Condition Effective Dates Status Health Status Informant Arthritis(Confirmed) Resolved 1 Cancer(Confirmed)2 Resolved Cataracts, Resolved bilateral(Confirmed) CHF (congestive Resolved heart failure)(Confirmed) Deafness(Confirmed)3 Resolved Peripheral venous 02/18/14 Active insufficiency4 1rheumatoid arthritis 2prostate cancer 3uses hearing aid 4Data migrated from [employer] on 07/23/14. Allergies, Adverse Reactions, Alerts Substance Reaction Severity Status Anaprox-DS Active methocarbamol1 Anaprox-DS Active 1Data migrated from [employer] on 06/20/14. Originally documented as METHOCABAMOL. Medications losartan 100 mg oral tablet 100 mg=1 tab, PO, Daily, # 90 tab, 2 Refill(s), Pharmacy: [facility] Start Date: 09/30/14 Status: Ordered Results No data available for [...]
--- OUTSIDE RECORDS SUMMARY | 2017-07-22 05:24 | XMS REPORT | Summary of Care ---
Author Author [facility] Organization [facility] Address Unknown Phone Unavailable Encounter ADDIE Thorpe(ANDRE) [id number] Date(s): 01/15/15 - 01/15/15 [facility] [address] [facility], [address] Discharge Disposition: Home Attending Physician: Micheal Svaage MD Referring Physician: Micheal Savage MD Vital Signs Most recent to 1 oldest [Reference Range]: Height 182.88 cm (01/15/15 10:08 AM) Temperature Oral 97.7 DegF [96.4-99.1 DegF] (01/15/15 10:08 AM) Blood Pressure 161/69 mmHg [90-140/60-90 mmHg] *HI* (01/15/15 10:08 AM) Respiratory Rate 16 BRMIN [14-20 BRMIN] (01/15/15 10:08 AM) Peripheral Pulse 66 bpm Rate [60-100 bpm] (01/15/15 10:08 AM) Weight 70.636 kg (01/15/15 10:08 AM) Body Mass Index 21.12 m2 (01/15/15 10:08 AM) Problem List Condition Effective Dates Status Health Status Informant Arthritis(Confirmed) Resolved 1 Cancer(Confirmed)2 Resolved Cataracts, Resolved bilateral(Confirmed) CHF (congestive Resolved heart failure)(Confirmed) Deafness(Confirmed)3 Resolved Peripheral venous 02/18/14 Active insufficiency4 1rheumatoid arthritis 2prostate cancer 3uses hearing aid 4Data migrated from [employer] on 07/23/14. Allergies, Adverse Reactions, Alerts Substance Reaction Severity Status Anaprox-DS Active methocarbamol1 Anaprox-DS Active 1Data migrated from [employer] on 06/20/14. Originally documented as METHOCABAMOL. Medications No Known Medications Results No data available for this section [...]
--- OUTSIDE RECORDS SUMMARY | 2017-07-22 05:24 | XMS REPORT | Summary of Care ---
Author Organization Unknown Address Unknown Phone Unavailable Encounter ADDIE Thorpe(ANDRE) [id number] Date(s): 06/25/14 - 06/25/14 [facility] [address] [place] [address], [address] Discharge Disposition: Home Physician Attending: Micheal Savgae MD Physician_Referring: Micheal Savage MD Vital Signs Most recent to 1 oldest [Reference Range]: Height 182.88 cm (06/25/14 9:22 AM) Temperature Oral 97.1 DegF [96.4-99.1 DegF] (06/25/14 9:22 AM) Blood Pressure 132/64 mmHg [90-140/60-90 mmHg] (06/25/14 9:22 AM) Respiratory Rate 18 BRMIN [14-20 BRMIN] (06/25/14 9:22 AM) Peripheral Pulse 77 bpm Rate [60-100 bpm] (06/25/14 9:22 AM) Problem List Condition Effective Dates Status Health Status Informant Arthritis(Confirmed) Resolved 1 Cancer(Confirmed)2 Resolved Cataracts, Resolved bilateral(Confirmed) CHF (congestive Resolved heart failure)(Confirmed) Deafness(Confirmed)3 Resolved 1rheumatoid arthritis 2prostate cancer 3uses hearing aid Allergies, Adverse Reactions, Alerts Substance Reaction Severity Status Anaprox-DS Active methocarbamol1 Anaprox-DS Active 1Data migrated from [employer] on 06/20/14. Originally documented as METHOCABAMOL. Medications atorvastatin 10 mg oral tablet 10 mg=1 tab, PO, Bedtime, # 90 tab, 3 Refill(s), Pharmacy: [facility] Start Date: 06/25/14 Status: Ordered losartan 100 mg oral tablet 100 mg=1 tab, PO, Daily, # 30 tab, 0 Refill(s) Start Date: 06/25/14 Status: Ordered pantoprazole 40 mg oral granule =1 Pack, PO, Daily, # 30 ea, 0 Refill(s) Start Date: 06/25/14 Status: Ordered zolpidem 5 mg oral tablet 5 mg=1 tab, PO, Bedtime, PRN Sleep, # 90 tab, 1 Refill(s) Start Date: 06/25/14 Status: Ordered Results No data available for [...]
--- OUTSIDE RECORDS SUMMARY | 2017-07-22 05:24 | XMS REPORT | Summary of Care ---
Author Organization Unknown Address Unknown Phone Unavailable Encounter HQ Maurilio(FIN) [id number] Date(s): 08/09/14 - 08/09/14 [facility] Out[facility] Imaging - [address], [address] [phone] Discharge Disposition: Home Physician Attending: Maria Teresa Haynes BUSINESS SOLUTIONS ANALYST Vital Signs No data available for this section Problem List Condition Effective Dates Status Health Status Informant Arthritis(Confirmed) Resolved 1 Cancer(Confirmed)2 Resolved Cataracts, Resolved bilateral(Confirmed) CHF (congestive Resolved heart failure)(Confirmed) Deafness(Confirmed)3 Resolved Peripheral venous 02/18/14 Active insufficiency4 1rheumatoid arthritis 2prostate cancer 3uses hearing aid 4Data migrated from [employer] on 07/23/14. Allergies, Adverse Reactions, Alerts Substance Reaction Severity Status Anaprox-DS Active methocarbamol1 Anaprox-DS Active 1Data migrated from [employer] on 06/20/14. Originally documented as METHOCABAMOL. Medications No data available for this section Results No data available for this section [...]
--- OUTSIDE RECORDS SUMMARY | 2017-07-22 05:24 | XMS REPORT | Summary of Care ---
Author Organization Unknown Address Unknown Phone Unavailable Encounter HQ Maurilio(ANDRE) [id number] Date(s): 08/20/13 - 08/21/13 [facility] [address] [place] [address], [address] Reason for Visit Phone Message Problem List Condition Effective Dates Status Health Status Informant Arthritis(Confirmed) Resolved 1 Cancer(Confirmed)2 Resolved Cataracts, Resolved bilateral(Confirmed) CHF (congestive Resolved heart failure)(Confirmed) Deafness(Confirmed)3 Resolved renal(Confirmed) Resolved 1rheumatoid arthritis 2prostate cancer 3uses hearing aid Allergies, Adverse Reactions, Alerts Substance Reaction Severity Status Anaprox-DS Active methocarbamol Anaprox-DS Active Medications hydrALAZINE 50 mg oral tablet 50 mg=1 tab, PO, BID, # 120 tab, 2 Refill(s), Pharmacy: [facility] #[id number] Start Date: 08/20/13 Status: Ordered Medications Administered During Your Visit No data available for this section Immunizations No data available for this section
--- OUTSIDE RECORDS SUMMARY | 2017-07-22 05:24 | XMS REPORT ---
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 Are you a:: never smoker Nov 18, 2015 Marital Status: . Nov 18, 2015 Caffeine: no. Nov 18, 2015 Exercise: yes. Nov 18, 2015 Alcohol: no. 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
--- OUTSIDE RECORDS SUMMARY | 2017-07-22 05:24 | XMS REPORT | Summary of Care ---
Author Author [facility] Organization [facility] Address Unknown Phone Unavailable Encounter ADDIE Thorpe(ANDRE) [id number] Date(s): 07/09/15 - 07/09/15 [facility] [address] [facility], [address] Discharge Disposition: Home Attending Physician: Micheal Savage MD Referring Physician: Micheal Savage MD Vital Signs Most recent to 1 oldest [Reference Range]: Height 182.88 cm (07/09/15 12:24 PM) Temperature Oral 97.9 DegF [96.4-99.1 DegF] (07/09/15 12:24 PM) Blood Pressure 138/64 mmHg [90-140/60-90 mmHg] (07/09/15 12:24 PM) Respiratory Rate 16 BRMIN [14-20 BRMIN] (07/09/15 12:24 PM) Peripheral Pulse 63 bpm Rate [60-100 bpm] (07/09/15 12:24 PM) Weight 72.455 kg (07/09/15 12:24 PM) Body Mass Index 21.66 m2 (07/09/15 12:24 PM) Problem List Condition Effective Dates Status Health Status Informant Arthritis(Confirmed) Resolved 1 Cancer(Confirmed)2 Resolved Cataracts, Resolved bilateral(Confirmed) CHF (congestive Resolved heart failure)(Confirmed) Deafness(Confirmed)3 Resolved Peripheral venous 02/18/14 Active insufficiency4 1rheumatoid arthritis 2prostate cancer 3uses hearing aid 4Data migrated from [employer] on 07/23/14. Allergies, Adverse Reactions, Alerts Substance Reaction Severity Status Anaprox-DS Active methocarbamol1 Anaprox-DS Active 1Data migrated from [employer] on 06/20/14. Originally documented as METHOCABAMOL. Medications Prevagen-D extra strength Prevagen-D extra strength, 1 tab, Daily, Refill(s) 0 Start Date: 07/09/15 Status: Ordered Results No data available for [...]
--- OUTSIDE RECORDS SUMMARY | 2017-07-22 05:24 | XMS REPORT ---
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 Are you a:: never smoker June 03, 2015 Marital Status: . June 03, 2015 Caffeine: no. June 03, 2015 Exercise: yes. June 03, 2015 Alcohol: no. 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
--- OUTSIDE RECORDS SUMMARY | 2017-07-22 05:24 | XMS REPORT ---
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 Are you a:: never smoker June 03, 2015 Marital Status: . June 03, 2015 Caffeine: no. June 03, 2015 Exercise: yes. June 03, 2015 Alcohol: no. 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
--- OUTSIDE RECORDS SUMMARY | 2017-07-22 05:24 | XMS REPORT ---
Author Author Wilber Vargas [employer] Address Unknown Phone Unavailable Care Team Providers Care Shipping Clerk Name Role Phone Wilber Vargas CP Unavailable [...] Vargas MD July 22, 2014 Phone Call Wilbre Vargas MD August 21, 2014 Refill--Folic Acid [...] Date End Date Status Dosage Hydroxychloroquine Sulfate [facility] [address]-22 200 MG Orally bid Feb 09, 2016 Active 1 tablet with food or milk Social History Social History Element Qualifiers Date Reported Tobacco Use: . Are you a:: never smoker June 03, 2015 Marital Status: . June 03, 2015 Caffeine: no. June 03, 2015 Exercise: yes. June 03, 2015 Alcohol: no. 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
--- OUTSIDE RECORDS SUMMARY | 2017-07-22 05:24 | XMS REPORT | Summary of Care ---
Author Author [facility] Organization [facility] Address Unknown Phone Unavailable Encounter ADDIE Thorpe(ANDRE) [id number] Date(s): 10/22/15 - 10/23/15 [facility] [address] [facility], [address] Vital Signs No data available for this section Problem List Condition Effective Dates Status Health Status Informant Arthritis(Confirmed) Resolved 1 Cancer(Confirmed)2 Resolved Cataracts, Resolved bilateral(Confirmed) CHF (congestive Resolved heart failure)(Confirmed) Deafness(Confirmed)3 Resolved Peripheral venous 02/18/14 Active insufficiency4 1rheumatoid arthritis 2prostate cancer 3uses hearing aid 4Data migrated from [employer] on 07/23/14. Allergies, Adverse Reactions, Alerts Substance Reaction Severity Status Anaprox-DS Active methocarbamol1 Anaprox-DS Active 1Data migrated from [facility] on 06/20/14. Originally documented as METHOCABAMOL. Medications atorvastatin 10 mg oral tablet 10 mg=1 tab, PO, Bedtime, # 90 tab, 3 Refill(s), Pharmacy: [id number] Start Date: 10/22/15 Status: Ordered hydrALAZINE 50 mg oral tablet 50 mg=1 tab, PO, BID, # 180 tab, 3 Refill(s), Pharmacy: [id number] Start Date: 10/22/15 Status: Ordered losartan 100 mg oral tablet 100 mg=1 tab, PO, Daily, # 90 tab, 3 Refill(s), Pharmacy: [id number] Start Date: 10/22/15 Status: Ordered Results No data available for [...]
--- OUTSIDE RECORDS SUMMARY | 2017-07-22 05:24 | XMS REPORT | Summary of Care ---
Author Author [facility] [place] Organization [facility] [place] Address Unknown Phone Unavailable Encounter ADDIE Thorpe(FIN) [id number] Date(s): 11/08/14 - 11/08/14 [facility] [place] [address] [place], [place] [address] [phone] Discharge Disposition: Home Attending Physician: Ed Santo MD Vital Signs No data available for this section Problem List Condition Effective Dates Status Health Status Informant Arthritis(Confirmed) Resolved 1 Cancer(Confirmed)2 Resolved Cataracts, Resolved bilateral(Confirmed) CHF (congestive Resolved heart failure)(Confirmed) Deafness(Confirmed)3 Resolved Peripheral venous 02/18/14 Active insufficiency4 1rheumatoid arthritis 2prostate cancer 3uses hearing aid 4Data migrated from [employer] on 07/23/14. Allergies, Adverse Reactions, Alerts Substance Reaction Severity Status Anaprox-DS Active methocarbamol1 Anaprox-DS Active 1Data migrated from [employer] on 06/20/14. Originally documented as METHOCABAMOL. Medications [...]
--- OUTSIDE RECORDS SUMMARY | 2017-07-22 05:24 | XMS REPORT | Summary of Care ---
Author Organization Unknown Address Unknown Phone Unavailable Encounter ADDIE Thorpe(ANDRE) [id number] Date(s): 09/20/13 - 09/21/13 [facility] [address] [place] [address], [address] Reason for Visit Phone Message Problem [...] mg=1 tab, PO, BID, # 180 tab, 2 Refill(s), Pharmacy: [email or web address] Start Date: 09/20/13 Status: Ordered zolpidem 5 mg oral tablet 5 mg=1 tab, PO, Bedtime, Sleep, # 30 tab, 3 Refill(s) Start Date: 09/20/13 Status: Ordered Medications Administered During Your Visit No data available for this section Immunizations No data available for this section
--- OUTSIDE RECORDS SUMMARY | 2017-07-22 05:24 | XMS REPORT ---
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 Problem Osteoarthritis of right knee M17.9 Active Problem Other joint terminal attack controller (current) drug therapy Z79.899 Active Assessment Right knee pain M25.561 Active Problem Spinal stenosis of lumbosacral region M48.07 Active Problem 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 Active Medications Medication Code System Code Instructions Start Date End Date Status Dosage Folic Acid [facility] [address]-25 1 MG Orally Once a day Mar 17, 2015 Active 1 tablet Glucosamine Chond Complex/[facility] [address] 1500MG Twice a day Active 2 Tablets Aspirin [facility] [address]-39 81 mg Orally once a day Active 1 tablet Citracal Plus [facility] [address]-46 630 MG Once a day Active 2 Tablets Lipitor [facility] [address]-55 10 MG Orally Once a day Active 1 tablet Vitamin B-12 [facility] 16246-11360 Once a month Active 1 injection Losartan Unknown 0 100 MG Oncce a day Active 1 Tablet HydrALAZINE HCl [facility] [address]-42 50 MG Orally Twice a day Active 1 tablet Methotrexate [facility] [address]-24 2.5 MG Orally Once a week Active 6 tablet Centrum Silver [facility] [address]-15 OTC Orally once a day Active 1 Tablet MethylPREDNISolone [facility] [address]-75 4 MG Orally once a day Active 1 tablets Hydroxychloroquine Sulfate [facility] [address]-04 200 MG Orally bid Active 1 tablet with food or milk Calcium + D [facility] [address]-81 600-200 MG-UNIT Orally Once a day Active 1 tablet with food Social History Social History Element Qualifiers Date Reported Tobacco Use: . Are you a:: never smoker June 03, 2015 Marital Status: . June 03, 2015 Caffeine: no. June 03, 2015 Exercise: yes. June 03, 2015 Alcohol: no. 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
--- OUTSIDE RECORDS SUMMARY | 2017-07-22 05:24 | XMS REPORT | Summary of Care ---
Author Organization Unknown Address Unknown Phone Unavailable Encounter HQ Maurilio(FIN) [id number] Date(s): 07/08/14 - 07/09/14 [facility] [address] [facility], [address] Vital Signs No data available for this section Problem List Condition Effective Dates Status Health Status Informant Arthritis(Confirmed) Resolved 1 Cancer(Confirmed)2 Resolved Cataracts, Resolved bilateral(Confirmed) CHF (congestive Resolved heart failure)(Confirmed) Deafness(Confirmed)3 Resolved 1rheumatoid arthritis 2prostate cancer 3uses hearing aid Allergies, Adverse Reactions, Alerts Substance Reaction Severity Status Anaprox-DS Active methocarbamol1 Anaprox-DS Active 1Data migrated from [employer] on 06/20/14. Originally documented as METHOCABAMOL. Medications [...]
--- OUTSIDE RECORDS SUMMARY | 2017-07-22 05:24 | XMS REPORT | Summary of Care ---
Author Organization Unknown Address Unknown Phone Unavailable Encounter ADDIE Thorpe(ANDRE) [id number] Date(s): 12/06/13 - 12/06/[address] Discharge Disposition: Home Physician Attending: Micheal Savage MD Physician_Referring: Micheal Savage MD Reason for Visit 6 MONTH FOLLOW UP Vital Signs Most recent to 1 oldest [Reference Range]: Height 182.88 cm (12/06/13 2:50 PM) Temperature Oral 97.2 DegF [96.4-99.1 DegF] (12/06/13 2:50 PM) Systolic Blood 121 mmHg Pressure [90-140 (12/06/13 2:50 PM) mmHg] Diastolic Blood 55 mmHg Pressure [60-90 *LOW* mmHg] (12/06/13 2:50 PM) Respiratory Rate 16 BRMIN [14-20 BRMIN] (12/06/13 2:50 PM) Peripheral Pulse 65 bpm Rate [60-100 bpm] (12/06/13 2:50 PM) Weight 66.477 kg (12/06/13 2:50 PM) Body Mass Index 19.88 m2 (12/06/13 2:50 PM) Problem List Condition Effective Dates Status Health Status Informant Arthritis(Confirmed) Resolved 1 Cancer(Confirmed)2 Resolved Cataracts, Resolved bilateral(Confirmed) CHF (congestive Resolved heart failure)(Confirmed) Deafness(Confirmed)3 Resolved renal(Confirmed) Resolved 1rheumatoid arthritis 2prostate cancer 3uses hearing aid Allergies, Adverse Reactions, Alerts Substance Reaction Severity Status Anaprox-DS Active methocarbamol Anaprox-DS Active Medications atorvastatin 10 mg oral tablet 10 mg=1 tab, PO, Bedtime, # 30 tab, 0 Refill(s) Start Date: 12/06/13 Status: Ordered methotrexate 2.5 mg oral tablet 0 Refill(s) Start Date: 12/06/13 Status: Ordered Medications Administered During Your Visit No data available for this section Immunizations No data available for this section
--- OUTSIDE RECORDS SUMMARY | 2017-07-22 05:24 | XMS REPORT | Summary of Care ---
Author Organization Unknown Address Unknown Phone Unavailable Encounter HQ Maurilio(ANDRE) [id number] Date(s): 08/02/14 - 08/02/14 [facility] Outpatient Imaging - [address], [address] [phone] Discharge Disposition: Home Physician Attending: Ed Santo MD Vital Signs No data available for this section Problem List Condition Effective Dates Status Health Status Informant Arthritis(Confirmed) Resolved 1 Cancer(Confirmed)2 Resolved Cataracts, Resolved bilateral(Confirmed) CHF (congestive Resolved heart failure)(Confirmed) Deafness(Confirmed)3 Resolved Peripheral venous 02/18/14 Active insufficiency4 1rheumatoid arthritis 2prostate cancer 3uses hearing aid 4Data migrated from [employer] on 07/23/14. Allergies, Adverse Reactions, Alerts Substance Reaction Severity Status Anaprox-DS Active methocarbamol1 Anaprox-DS Active 1Data migrated from [employer] on 06/20/14. Originally documented as METHOCABAMOL. Medications [...]
--- OUTSIDE RECORDS SUMMARY | 2017-07-22 05:24 | XMS REPORT ---
Author Author Wilber Vargas eClinicalWorks Address Unknown Phone Unavailable Care Team Providers Care Finishing Pan Operator Name Role Phone Wilebr Vargas CP Unavailable Encounters Encounter Location Date [...] of right knee M17.9 Active Problem Other retirement (current) drug therapy Z79.899 Active Problem Spinal [...] no. 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
--- OUTSIDE RECORDS SUMMARY | 2017-07-22 05:24 | XMS REPORT | Summary of Care ---
Author Organization Unknown Address Unknown Phone Unavailable Encounter HQ Maurilio(ANDRE) [id number] Date(s): 10/29/13 - 10/30/13 [facility] [address] [place] [address], [address] Reason for Visit Phone Message Problem List Condition Effective Dates Status Health Status Informant Arthritis(Confirmed) Resolved 1 Cancer(Confirmed)2 Resolved Cataracts, Resolved bilateral(Confirmed) CHF (congestive Resolved heart failure)(Confirmed) Deafness(Confirmed)3 Resolved renal(Confirmed) Resolved 1rheumatoid arthritis 2prostate cancer 3uses hearing aid Allergies, Adverse Reactions, Alerts Substance Reaction Severity Status Anaprox-DS Active methocarbamol Anaprox-DS Active Medications zolpidem 5 mg oral tablet 5 mg=1 tab, PO, Bedtime, Sleep, # 15 tab, 0 Refill(s), called to pharmacy Start Date: 10/29/13 Stop Date: 11/13/13 Status: Ordered Medications Administered During Your Visit No data available for this section Immunizations No data available for this section
--- OUTSIDE RECORDS SUMMARY | 2017-07-22 05:24 | XMS REPORT ---
Author Author Wilber Vargas [facility] eClinicalWorks Address Unknown Phone Unavailable Care Team Providers Care Home Care And Home Health Aides Teacher Name Role Phone Wilber Vargas CP Unavailable [...] ICD-9 Code Onset Dates Condition Status Assessment Right knee pain M25.561 Active Assessment 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 Assessment Other detention (current) drug therapy Z79.899 Active Problem Right knee pain M25.561 Active Problem 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 Problem Osteoarthritis of right knee M17.9 Active Problem Other manager long term care (current) drug therapy Z79.899 Active Assessment 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 Active Problem Spinal stenosis of lumbosacral region M48.07 Active Problem 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 Active Medications Medication Code System Code Instructions Start Date End Date Status Dosage Centrum Silver [facility] [address]-49 OTC Orally once a day Active 1 Tablet Prevagen [facility] 93974-32942 10 MG Orally Once a day Active as directed Citracal Plus [facility] [address]-16 630 MG Once a day Active 2 Tablets HydrALAZINE HCl [facility] [address]-84 50 MG Orally Twice a day Active 1 tablet MethylPREDNISolone [facility] [address]-13 4 MG Orally once a day Active 1 tablets Calcium + D [facility] [address]-49 600-200 MG-UNIT Orally Once a day Active 1 tablet with food Lipitor [facility] [address]-39 10 MG Orally Once a day Active 1 tablet Vitamin B-12 [facility] 17652-96917 Once a month Active 1 injection Folic Acid [facility] [address]-28 1 MG Orally Once a day Mar 17, 2015 Active 1 tablet Losartan Unknown 0 100 MG Oncce a day Active 1 Tablet Hydroxychloroquine Sulfate [facility] [address]-88 200 MG Orally bid Feb 09, 2016 Active 1 tablet with food or milk Aspirin [facility] [address]-69 81 mg Orally once a day Active 1 tablet Social History Social History Element Qualifiers Date Reported Tobacco Use: . Are you a:: never smoker Nov 18, 2015 Marital Status: . Nov 18, 2015 Caffeine: no. Nov 18, 2015 Exercise: yes. Nov 18, 2015 Alcohol: no. 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 [place](-> OR=60 mL/min/1.73m2) 54 ALKALINE PHOSPHATASE(-40-115 U/L) 55 eGFR (-> OR=60 mL/min/1.73m2) 62 BILIRUBIN, TOTAL(-0.2-1.2 mg/dL) 0.4 BUN/CREATININE RATIO(-6-22 (calc)) 15 ALBUMIN/GLOBULIN RATIO(-1.0-2.5 (calc)) 1.5 SODIUM(-135-146 mmol/L) 142 GLOBULIN(-1.9-3.7 g/dL (calc)) 2.3 POTASSIUM(-3.5-5.3 mmol/L) 4.0 GLUCOSE(-65-99 mg/dL) 90 CHLORIDE(-98-110 mmol/L) 107 ALBUMIN(-3.6-5.1 g/dL) 3.5 UREA NITROGEN (BUN)(-7-25 mg/dL) 19 PROTEIN, TOTAL(-6.1-8.1 g/dL) 5.8 SED RATE BY MODIFIED WESTERGREN SED RATE BY MODIFIED WESTERGREN(-< OR=20 mm/h) 4 C-REACTIVE PROTEIN C-REACTIVE PROTEIN(-<0.80 mg/dL) <0.10 CBC (INCLUDES DIFF/PLT) MCHC(-32.0-36.0 g/dL) 33.4 MCH(-27.0-33.0 pg) 30.4 PLATELET COUNT(-140-400 Thousand/uL) 188 RDW(-11.0-15.0 %) 14.0 BASOPHILS(- %) 0.8 ABSOLUTE NEUTROPHILS(-4684-6575 cells/uL) 4997 ABSOLUTE LYMPHOCYTES(-850-3900 cells/uL) 1694 MPV(-7.5-11.5 fL) 8.8 ABSOLUTE BASOPHILS(-0-200 cells/uL) 62 HEMATOCRIT(-38.5-50.0 %) 32.4 NEUTROPHILS(- %) 64.9 MCV(-80.0-100.0 fL) 91.0 RED BLOOD CELL COUNT(-4.20-5.80 Million/uL) 3.56 ABSOLUTE MONOCYTES(-200-950 cells/uL) 824 ABSOLUTE EOSINOPHILS(-15-500 cells/uL) 123 HEMOGLOBIN(-13.2-17.1 g/dL) 10.8 EOSINOPHILS(- %) 1.6 WHITE BLOOD CELL COUNT(-3.8-10.8 Thousand/uL) 7.7 LYMPHOCYTES(- %) 22.0 MONOCYTES(- %) 10.7 Immunizations Vaccine Administration Date Depomedrol Nov 18, 2015 Toradol Nov 18, 2015 Summary Purpose eClinicalWorks Submission
--- OUTSIDE RECORDS SUMMARY | 2017-07-22 05:24 | XMS REPORT | Summary of Care ---
Author Organization Unknown Address Unknown Phone Unavailable Encounter ADDIE Thorpe(ANDRE) [id number] Date(s): 07/08/14 - 07/09/14 [facility] [address] [facility], [address] Vital Signs No data available for this section Problem List Condition Effective Dates Status Health Status Informant Arthritis(Confirmed) Resolved 1 Cancer(Confirmed)2 Resolved Cataracts, Resolved bilateral(Confirmed) CHF (congestive Resolved heart failure)(Confirmed) Deafness(Confirmed)3 Resolved 1rheumatoid arthritis 2prostate cancer 3uses hearing aid Allergies, Adverse Reactions, Alerts Substance Reaction Severity Status Anaprox-DS Active methocarbamol1 Anaprox-DS Active 1Data migrated from [employer] on 06/20/14. Originally documented as METHOCABAMOL. Medications hydrALAZINE 50 mg oral tablet 50 mg=1 tab, PO, BID, # 180 tab, 3 Refill(s), Pharmacy: [facility] Start Date: 07/08/14 Stop Date: 07/03/15 Status: Ordered Results No data available for [...]
--- OUTSIDE RECORDS SUMMARY | 2017-07-22 05:24 | XMS REPORT ---
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 Are you a:: never smoker Mar 01, 2016 Marital Status: . Mar 01, 2016 Caffeine: no. Mar 01, 2016 Exercise: yes. Mar 01, 2016 Alcohol: no. 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
--- OUTSIDE RECORDS SUMMARY | 2017-07-22 05:24 | XMS REPORT ---
Author Author Wilber Vargsa eClinicalWorks Address Unknown Phone Unavailable Care Team Providers Care Valve Liner Rubber Name Role Phone Wilber Vargas CP Unavailable Encounters Encounter Location Date MRI Bi Hands In $44 Wilber Vargas MD Feb 27, 2014 Injections Wilber Vargas MD August 27, 2015 [...] of right knee M17.9 Active Problem Other supervisor intermediates (current) drug therapy Z79.899 Active Problem Spinal [...] no. 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
--- OUTSIDE RECORDS SUMMARY | 2017-07-22 05:24 | XMS REPORT | Summary of Care ---
Author Organization Unknown Address Unknown Phone Unavailable Encounter ADDIE Thorpe(ANDRE) [id number] Date(s): 08/07/13 - 08/07/[address] Discharge Disposition: Home Physician Attending: Micheal Savage MD Physician_Referring: Micheal Savage MD Reason for Visit 6 MONTH FOLLOW UP Vital Signs Most recent to 1 oldest [Reference Range]: Height 182.88 cm (08/07/13 11:05 AM) Temperature Oral 97.4 DegF [96.4-99.1 DegF] (08/07/13 11:05 AM) Systolic Blood 184 mmHg Pressure [90-140 *HI* mmHg] (08/07/13 11:05 AM) Respiratory Rate 16 BRMIN [14-20 BRMIN] (08/07/13 11:05 AM) Peripheral Pulse 59 bpm Rate [60-100 bpm] *LOW* (08/07/13 11:05 AM) Weight 69.347 kg (08/07/13 11:05 AM) Body Mass Index 20.73 m2 (08/07/13 11:05 AM) Problem List Condition Effective Dates Status [...] Bedtime, # 90 tab, 3 Refill(s), Pharmacy: [facility] Start Date: 08/07/13 Status: Ordered ferrous sulfate 325 mg oral enteric coated tablet 325 mg=1 tab, PO, Daily, # 30 tab, 0 Refill(s) Start Date: 08/07/13 Status: Ordered hydrALAZINE 50 mg oral tablet 50 mg=1 tab, PO, BID, # 360 tab, 0 Refill(s) Start Date: 08/07/13 Status: Ordered losartan 100 mg oral tablet 100 mg=1 tab, PO, Daily, # 90 tab, 3 Refill(s), Pharmacy: [facility] Start Date: 08/07/13 Status: Ordered warfarin 4 mg oral tablet 4 mg=1 tab, PO, Daily, # 30 tab, 0 Refill(s) Start Date: 08/07/13 Status: Ordered zolpidem 5 mg oral tablet 5 mg=1 tab, PO, Bedtime, # 30 tab, 5 Refill(s) Start Date: 08/07/13 Status: Ordered Medications Administered During Your Visit No data available for this section Immunizations No data available for this section
--- OUTSIDE RECORDS SUMMARY | 2017-07-22 05:25 | XMS REPORT | Summary of Care ---
Author Author [facility] Address Unknown Phone Unavailable Encounter HQ Maurilio(FIN) [id number] Date(s): 03/03/17 - 04/01/17 [facility] Encounter Diagnosis Stiffness of right knee, not elsewhere classified (Final) - 04/05/17 Pain in right knee (Final) - Muscle weakness (generalized) (Final) - Unspecified abnormalities of gait and mobility (Final) - Unsteadiness on feet (Final) - Encounter for other orthopedic aftercare (Final) - Discharge Disposition: Home or Self Care Attending Physician: Marilee Bailey MD Vital Signs No data available for this section Problem List Condition Effective Dates Status Health Status Informant Arthritis(Confirmed) Resolved 1 Cataracts, Resolved bilateral(Confirmed) CHF (congestive Resolved heart failure)(Confirmed) Deafness(Confirmed)2 Resolved Peripheral venous 02/18/14 Active insufficiency3 1rheumatoid arthritis 2uses hearing aid 3Data migrated from [employer] on 07/23/14. Allergies, Adverse Reactions, Alerts Substance Reaction Severity Status methocarbamol1 Anaprox-DS Active Anaprox-DS Active 1Data migrated from [employer] on 06/20/14. Originally documented as METHOCABAMOL. Medications No data available for this section Results No data available for this section Immunizations No data available for this section Procedures Procedure Date Related Diagnosis Body Site Status Knee replacement Completed Radiation therapy procedure or service1 Completed Shoulder replacement Completed 1for Prostate Cancer in Social History Social History Type Response Smoking Status Unknown if ever smoked; Exposure to Tobacco Smoke Unable to obtain; Cigarette Smoking Last 365 Days Unable to obtain; Reg Smoking Cessation Counseling No entered on: 10/22/16 Assessment and Plan No data available for this section
--- OUTSIDE RECORDS SUMMARY | 2017-07-22 05:25 | XMS REPORT | Summary of Care ---
Author Author [facility] Address Unknown Phone Unavailable Encounter HQ Kane_glo(FIN) [id number] Date(s): 11/29/16 - 12/28/16 [facility] Discharge Disposition: Home or Self Care Attending Physician: Marilee Bailey MD Vital Signs No data available for this section Problem List Condition Effective Dates Status Health Status Informant Arthritis(Confirmed) Resolved 1 Cataracts, Resolved bilateral(Confirmed) CHF (congestive Resolved heart failure)(Confirmed) Deafness(Confirmed)2 Resolved Peripheral venous 02/18/14 Active insufficiency3 1rheumatoid arthritis 2uses hearing aid 3Data migrated from [employer] on 07/23/14. Allergies, Adverse Reactions, Alerts Substance Reaction Severity Status Anaprox-DS Active methocarbamol1 Anaprox-DS Active 1Data migrated from [employer] on 06/20/14. Originally documented as METHOCABAMOL. Medications [...]
--- OUTSIDE RECORDS SUMMARY | 2017-07-22 05:25 | XMS REPORT | Summary of Care ---
Author Author [facility] [place] Organization [facility] [place] Address Unknown Phone Unavailable Encounter HQ Maurilio(FIN) [id number] Date(s): 10/01/16 - 10/01/16 [facility] - [place] [address] [place] [phone] Discharge Disposition: Home or Self Care Attending Physician: Marilee Bailey MD Vital Signs No data available for this section Problem List Condition Effective Dates Status Health Status Informant Arthritis(Confirmed) Resolved 1 Cataracts, Resolved bilateral(Confirmed) CHF (congestive Resolved heart failure)(Confirmed) Deafness(Confirmed)2 Resolved Peripheral venous 02/18/14 Active insufficiency3 1rheumatoid arthritis 2uses hearing aid 3Data migrated from [employer] on 07/23/14. Allergies, Adverse Reactions, Alerts Substance Reaction Severity Status Anaprox-DS Active methocarbamol1 Anaprox-DS Active 1Data migrated from [employer] on 06/20/14. Originally documented as METHOCABAMOL. Medications [...]
--- OUTSIDE RECORDS SUMMARY | 2017-07-22 05:25 | XMS REPORT | Summary of Care ---
Author Author [facility] Organization [facility] Address Unknown Phone Unavailable Encounter ADDIE Thorpe(ANDRE) [id number] Date(s): 10/22/16 - 10/22/16 [facility] [address] [facility] [place] [facility], [address] [place], [place] [address] Discharge Disposition: Home or Self Care Attending Physician: Micheal Savage MD Referring Physician: Micheal Savage MD Vital Signs Most recent to 1 oldest [Reference Range]: Height 167.64 cm (10/22/16 9:04 AM) Temperature Oral 97.5 DegF [96.4-99.1 DegF] (10/22/16 9:04 AM) Blood Pressure 128/58 mmHg [90-140/60-90 mmHg] (10/22/16 9:04 AM) Peripheral Pulse 62 bpm Rate [60-100 bpm] (10/22/16 9:04 AM) Weight 68.693 kg (10/22/16 9:04 AM) Body Mass Index 24.44 m2 (10/22/16 9:04 AM) Problem List Condition Effective Dates Status Health Status Informant Arthritis(Confirmed) Resolved 1 Cataracts, Resolved bilateral(Confirmed) CHF (congestive Resolved heart failure)(Confirmed) Deafness(Confirmed)2 Resolved Peripheral venous 02/18/14 Active insufficiency3 1rheumatoid arthritis 2uses hearing aid 3Data migrated from [employer] on 07/23/14. Allergies, Adverse Reactions, Alerts Substance Reaction Severity Status Anaprox-DS Active methocarbamol1 Anaprox-DS Active 1Data migrated from [employer] on 06/20/14. Originally documented as METHOCABAMOL. Medications [...]
--- OUTSIDE RECORDS SUMMARY | 2017-07-22 05:25 | XMS REPORT | Summary of Care ---
Author Author [facility] Organization [facility] Address Unknown Phone Unavailable Encounter ADDIE Thorpe(FIN) [id number] Date(s): 03/09/16 - 03/10/16 [facility] [address] [place] [phone] Vital Signs No data available for this section Problem List Condition Effective Dates Status Health Status Informant Arthritis(Confirmed) Resolved 1 Cataracts, Resolved bilateral(Confirmed) CHF (congestive Resolved heart failure)(Confirmed) Deafness(Confirmed)2 Resolved Peripheral venous 02/18/14 Active insufficiency3 1rheumatoid arthritis 2uses hearing aid 3Data migrated from [employer] on 07/23/14. Allergies, Adverse Reactions, Alerts Substance Reaction Severity Status Anaprox-DS Active methocarbamol1 Anaprox-DS Active 1Data migrated from [employer] on 06/20/14. Originally documented as METHOCABAMOL. Medications atorvastatin 10 mg oral tablet 10 mg=1 tab, PO, Bedtime, # 90 tab, 3 Refill(s), Pharmacy: [facility] Start Date: 03/09/16 Status: Ordered hydrALAZINE 50 mg oral tablet 50 mg=1 tab, PO, BID, # 180 tab, 3 Refill(s), Pharmacy: [facility] Start Date: 03/09/16 Status: Ordered losartan 100 mg oral tablet 100 mg=1 tab, PO, Daily, # 90 tab, 3 Refill(s), Pharmacy: [facility] Start Date: 03/09/16 Status: Ordered Results No data available for [...]
--- OUTSIDE RECORDS SUMMARY | 2017-07-22 05:25 | XMS REPORT | Summary of Care ---
Author Author [facility] Outpatient Imaging [facility] Outpatient [facility] Address Unknown Phone Unavailable Encounter HQ Richientr_aliadelso(FIN) [id number] Date(s): 06/29/16 - 06/29/16 [facility] [address] [facility], [address] [place], [place] [address] [phone] Discharge Disposition: Home or Self Care Attending Physician: Ed Santo MD Vital Signs No data available for this section Problem List Condition Effective Dates Status Health Status Informant Arthritis(Confirmed) Resolved 1 Cataracts, Resolved bilateral(Confirmed) CHF (congestive Resolved heart failure)(Confirmed) Deafness(Confirmed)2 Resolved Peripheral venous 02/18/14 Active insufficiency3 1rheumatoid arthritis 2uses hearing aid 3Data migrated from [employer] on 07/23/14. Allergies, Adverse Reactions, Alerts Substance Reaction Severity Status Anaprox-DS Active methocarbamol1 Anaprox-DS Active 1Data migrated from [employer] on 06/20/14. Originally documented as METHOCABAMOL. Medications [...]
--- OUTSIDE RECORDS SUMMARY | 2017-07-22 05:25 | XMS REPORT | Summary of Care ---
Author Author [facility] Organization [facility] Address Unknown Phone Unavailable Encounter HQ Maurilio(FIN) [id number] Date(s): 10/22/15 - 10/23/15 [facility]Note 3] for [facility] [address] [facility], [address] Vital Signs No data available for this section Problem List Condition Effective Dates Status Health Status Informant Arthritis(Confirmed) Resolved 1 Cancer(Confirmed)2 Resolved Cataracts, Resolved bilateral(Confirmed) CHF (congestive Resolved heart failure)(Confirmed) Deafness(Confirmed)3 Resolved Peripheral venous 02/18/14 Active insufficiency4 1rheumatoid arthritis 2prostate cancer 3uses hearing aid 4Data migrated from [employer] on 07/23/14. Allergies, Adverse Reactions, Alerts Substance Reaction Severity Status Anaprox-DS Active methocarbamol1 Anaprox-DS Active 1Data migrated from [employer] on 06/20/14. Originally documented as METHOCABAMOL. Medications [...]
--- OUTSIDE RECORDS SUMMARY | 2017-07-22 05:25 | XMS REPORT | Summary of Care ---
Author Author [facility] Address Unknown Phone Unavailable Encounter HQ Kane_glo(FIN) [id number] Date(s): 12/30/16 - 01/28/17 [facility] Final: Muscle weakness (generalized) Final: Unspecified abnormalities of gait and mobility Final: Unsteadiness on feet Discharge Disposition: Home or Self Care Attending Physician: Marilee Bailey MD Vital Signs No data available for this section Problem List Condition Effective Dates Status Health Status Informant Arthritis(Confirmed) Resolved 1 Cataracts, Resolved bilateral(Confirmed) CHF (congestive Resolved heart failure)(Confirmed) Deafness(Confirmed)2 Resolved Peripheral venous 02/18/14 Active insufficiency3 1rheumatoid arthritis 2uses hearing aid 3Data migrated from [employer] on 07/23/14. Allergies, Adverse Reactions, Alerts Substance Reaction Severity Status methocarbamol1 Anaprox-DS Active Anaprox-DS Active 1Data migrated from [employer] on 06/20/14. Originally documented as METHOCABAMOL. Medications [...]
--- OUTSIDE RECORDS SUMMARY | 2017-07-22 05:25 | XMS REPORT | Summary of Care ---
Author Author [facility] Address Unknown Phone Unavailable Encounter HQ [place](FIN) [id number] Date(s): 01/31/17 - 03/01/17 On license of [facility] Encounter Diagnosis Encounter for other orthopedic aftercare (Final) - 03/05/17 Stiffness of unspecified knee, not elsewhere classified (Final) - Pain in right knee (Final) - Muscle weakness (generalized) (Final) - Unspecified abnormalities of gait and mobility (Final) - Unsteadiness on feet (Final) - Muscle weakness (generalized) (Final) - Unspecified abnormalities of gait and mobility (Final) - Unsteadiness on feet (Final) - Discharge Disposition: Home or Self Care Attending Physician: Marilee Bailey MD Vital Signs No data available for this section Problem List Condition Effective Dates Status Health Status Informant Arthritis(Confirmed) Resolved 1 Cataracts, Resolved bilateral(Confirmed) CHF (congestive Resolved heart failure)(Confirmed) Deafness(Confirmed)2 Resolved Peripheral venous 02/18/14 Active insufficiency3 1rheumatoid arthritis 2uses hearing aid 3Data migrated from [employer] on 07/23/14. Allergies, Adverse Reactions, Alerts Substance Reaction Severity Status methocarbamol1 Anaprox-DS Active Anaprox-DS Active 1Data migrated from [employer] on 06/20/14. Originally documented as METHOCABAMOL. Medications [...]
--- OUTSIDE RECORDS SUMMARY | 2017-07-22 05:25 | XMS REPORT | Summary of Care ---
Author Author [facility] Address Unknown Phone Unavailable Encounter HQ [place](FIN) [id number] Date(s): 01/31/17 - 03/01/17 Critical access hospital Discharge Disposition: Home or Self Care Attending Physician: Marilee Bailey MD Vital Signs No data available for this section Problem List Condition Effective Dates Status Health Status Informant Arthritis(Confirmed) Resolved 1 Cataracts, Resolved bilateral(Confirmed) CHF (congestive Resolved heart failure)(Confirmed) Deafness(Confirmed)2 Resolved Peripheral venous 02/18/14 Active insufficiency3 1rheumatoid arthritis 2uses hearing aid 3Data migrated from [employer] on 07/23/14. Allergies, Adverse Reactions, Alerts Substance Reaction Severity Status methocarbamol1 Anaprox-DS Active Anaprox-DS Active 1Data migrated from [employer] on 06/20/14. Originally documented as METHOCABAMOL. Medications [...]
--- NOTE | 2017-07-22 06:20 | Diagnostic Imaging Report ---
ELBOW LEFT AP LAT Comparison: None Clinical history: Fall Findings: Suboptimal positioning limits evaluation. No evidence of joint effusion. No acute fracture or dislocation. Impression: Limited exam without evidence of acute fracture. Signed by: Dr Radha Barber MD on 07/22/2017 6:17 AM
[2017-07-22] MEDS: PIPER-TAZ 3.375 GM 50 ML IV SCH ×3 (06:47→19:30)
[2017-07-22 07:06] LABS: BILIRUBIN,URINE NEGATIVE (NEGATIVE); CLARITY,URINE CLEAR (CLEAR); COLOR,URINE YELLOW (YELLOW); KETONES,URINE NEGATIVE (NEGATIVE); LEUKOCYTE ESTERASE ,URINE NEGATIVE (NEGATIVE); NITRITE,URINE NEGATIVE (NEGATIVE); PROTEIN,URINE DIPSTICK NEGATIVE (NEGATIVE); URINE UROBILINOGEN 0.2 mg/dL (0.2 - 1)
--- OUTSIDE RECORDS SUMMARY | 2017-07-22 07:45 | XMS REPORT | Clinical Summary ---
Author Author [facility] Address Unknown Phone Unavailable Care Team Providers Care Roller Embosser Name Role Phone Asked, Pcp PCP Unavailable [...] INFLUENZA VACCINE 09/21/2017 Implants Implanted Type Area Ornamental Plasterer Helper Device Expiration Model / Identifier Date Serial / Lot Tri Tib Cmt Stm 5 Deg Sz F R, IPM Right: [employer] 2025 [id number] Persona Knee Joint Implant - IMPLANT Knee 075 02 / [id number] DEVICES / Implanted: Qty: 1 on 01/12/2016 by [id number] Eloy Dumas MD All Poly Pat 38 Mm Annalee, Persona IPM Right: [employer] 11/20/2022 42 [id number] Knee Joint Implant - [id number] IMPLANT Knee 000 38 / Implanted: Qty: 1 on 01/12/2016 by SAMIRA / Eloy Dumas MD [id number] Right Mc 10mm Used With E-F/8-11 - IPM Right: JONN [employer] 12/21/2020 [id number] IMPLANT Knee 0 / Implanted: Qty: 1 on 01/12/2016 by SAMIRA / Eloy Dumas MD [id number] Tri Fem Cr Cmt Ccr Cnt Sz 9 R, IPM Right: [employer] 09/20/2025 [id number] Persona Knee Joint Implant - IMPLANT Knee 2 / [id number] DEVICES / Implanted: Qty: 1 on 01/12/2016 by [id number] Eloy Dumas MD Cement Bone R+G 1dose Palacos - Knee Joint Right: JONN [employer] 2019 [id number] Implants Knee / Implanted: Qty: 2 on 01/12/2016 by / Eloy Dumas MD [id number] Results Not on fileafter 2016 Insurance Payer Benefit Subscriber ID Type Phone Address Plan / Group MEDICARE MEDICARE xxxxxxxxxx Medicare [place], [place] PART A AND B COMMERCIAL MISC MISC xxxxxxxxxx [place] [address]
[2017-07-22] MEDS ORDERED: ACETAMINOPHEN/CODEINE 300MG - 30MG TAB PO PRN ×2 (12:45→16:30)
--- NOTE | 2017-07-22 13:08 | History and Physical ---
Mr. Mcduffie is a very elderly, 82-year-old man with multiple medical problems. CHIEF COMPLAINT: He presented to the emergency room in the earring maker hours of July 22 after his tells me that he took his sleeping pill. He went into the bathroom to take his hearing aids out and fell to the floor. PAST MEDICAL HISTORY: Long and complex. He has longstanding rheumatoid arthritis. 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 He had a right total knee replacement in 2016. He evidently has had a left shoulder replacement as well and more recently had implant of a [employer]ile[employer] AICD defibrillator by Dr. Wright on June 21, 2017. MEDICATIONS: His recent home medications have been: 1. Methylprednisolone 4 mg daily. 2. Atorvastatin 10 mg daily. 3. Amiodarone 400 mg daily. 4. Carvedilol 3.125 mg twice daily. 5. Furosemide 40 mg every other day. 6. Ambien 5 mg at bedtime. 7. Alprazolam 0.25 mg twice a day. 8. Aspirin 81 mg daily. 9. Folic acid 1 mg daily. ALLERGIES: METHOCARBAMOL AND ANAPROX. SOCIAL HISTORY: He does not smoke or drink. He lives with his at home. REVIEW OF SYSTEMS CARDIAC: Patient has had a coronary stent placed in the [facility] in 2005. He developed congestive heart failure earlier this year, and nuclear study showed scar without ischemia and reduced ejection fraction. During recent hospitalization earlier this year, he had marked edema that gradually resolved with initiation of diuretic, which he never used before. PHYSICAL EXAMINATION GENERAL: Exam at this time shows an elderly white man who is awakening in the recovery room with his left arm in a sling. VITAL SIGNS: Blood pressure 140/70. Pulse is 70 and paced. HEENT: Relatively unremarkable. NECK: No jugular venous distention. THORAX: There is a healing left defibrillator site in the left subclavian area, still with some purpura. Heart sounds S1 and S2 are equal. Lungs are clear. ABDOMEN: Protuberant. EXTREMITIES: No significant cyanosis, clubbing or edema. Please see Dr. Corrales' operative note, but suggesting multiple skin injuries with "degloving" of skin and humerus fracture. X-RAYS: Fracture of the left proximal humerus. LABORATORY STUDIES: Hemoglobin 11.8, white count 11.1. Urinalysis is unremarkable. PT and INR 13.1 and 1.07. Chemistries show BUN 18, creatinine 1.2. Lactic acid is normal. PLAN: Will monitor his overall medical condition and use broad-spectrum antibiotics and ask for wound care evaluation. Will discuss with Dr. Corrales and family consideration of future surgical repair of the humerus or continued medical management. His care is complicated by his coronary disease, congestive heart failure, advanced age and long-time steroid usage for rheumatoid arthritis. Further management will be based on clinical course. Job#: [id number] cc:WILLIAM CORRALES MD
[2017-07-22] MEDS ORDERED: BACITRACIN 50,000 UNIT VIAL ONE (13:36)
[2017-07-22 16:00] VITALS: BP 121/73
[2017-07-22] MEDS ORDERED: VANCOMYCIN 750MG/NS 150ML IVPB 150 ML IV SCH (16:00)
--- OUTSIDE RECORDS SUMMARY | 2017-07-22 16:10 | XMS REPORT | Clinical Summary ---
Author Author [facility] Address Unknown Phone Unavailable Care Team Providers Care Certified Activities Director Name Role Phone Asked, Pcp PCP Unavailable [...] INFLUENZA VACCINE 09/21/2017 Implants Implanted Type Area Welder Metal Fab Device Expiration Model / Identifier Date Serial / Lot Tri Tib Cmt Stm 5 Deg Sz F R, IPM Right: [employer] 2025 [id number] Persona Knee Joint Implant - IMPLANT Knee 075 02 / [id number] DEVICES / Implanted: Qty: 1 on 01/12/2016 by [id number] Eloy Dumas MD All Poly Pat 38 Mm Annalee, Persona IPM Right: [employer] 11/20/2022 42 5400 Knee Joint Implant - [id number] IMPLANT Knee 000 38 / Implanted: Qty: 1 on 01/12/2016 by SAMIRA / Eloy Dumas MD [id number] Right Mc 10mm Used With E-F/8-11 - IPM Right: J[employer]N [employer] 12/21/2020 [id number] IMPLANT Knee 0 / Implanted: Qty: 1 on 01/12/2016 by SAMIRA / Eloy Dumas MD [id number] Tri Fem Cr Cmt Ccr Cnt Sz 9 R, IPM Right: [employer] 09/20/2025 [id number] Persona Knee Joint Implant - IMPLANT Knee 2 / [id number] DEVICES / Implanted: Qty: 1 on 01/12/2016 by [id number] Eloy Dumas MD Cement Bone R+G 1dose Palacos - Knee Joint Right: JONN [employer] 2019 [id number] Implants Knee / Implanted: Qty: 2 on 01/12/2016 by / Eloy Dumas MD [id number] Results Not on fileafter 2016 Insurance Payer Benefit Subscriber ID Type Phone Address Plan / Group MEDICARE MEDICARE xxxxxxxxxx Medicare [place], [place] PART A AND B COMMERCIAL MISC MISC xxxxxxxxx[place] [address]
[2017-07-22] MEDS ORDERED: MORPHINE SULFATE 2 MG/ML SYR ONE (16:14)
[2017-07-22] MEDS ORDERED: CEFAZOLIN SOD 1 GM VIAL IV SCH (17:00)
[2017-07-22] MEDS: VANCOMYCIN 750MG/NS 150ML IVPB 150 ML IV SCH (17:06)
[2017-07-22] MEDS: CEFAZOLIN SOD 1 GM VIAL IV SCH (17:06)
[2017-07-22 17:17] VITALS: BP 123/72
[2017-07-22] MEDS: SODIUM CHLORIDE 0.9% 1000ML 1,000 ML IV SCH (18:19)
[2017-07-22] MEDS ORDERED: HYDROCORTISONE SOD SUCCINATE 100 MG VIAL ONE (18:39)
[2017-07-22] MEDS ORDERED: KETOROLAC TROMETHAMINE 30 MG/ML VIAL ONE (18:39)
[2017-07-22] MEDS ORDERED: ETOMIDATE 2 MG/ML 10 ML INJ IV ONE (18:39)
[2017-07-22] MEDS ORDERED: SUCCINYLCHOLINE 200 MG/10 ML SYR ONE (18:39)
[2017-07-22] MEDS ORDERED: SEVOFLURANE INHAL SOLN 250 ML PEN BTL ONE (18:39)
[2017-07-22] MEDS ORDERED: ACETAMINOPHEN 1000 MG/100 ML IV ONE (18:39)
[2017-07-22] MEDS ORDERED: ONDANSETRON HCL INJ 2 MG/ML VIAL ONE (18:39)
[2017-07-22] MEDS ORDERED: ROCURONIUM BROMIDE 10 MG/ML 5ML VIAL ONE (18:39)
[2017-07-22 20:00] VITALS: BP_SYST 120; BP_SYST 123; BP_DIAS 64; BP_DIAS 72
[2017-07-22 20:57] LABS: CREATINE KINASE MB 3.5 ng/mL (0-5.0)
[2017-07-22 21:00] VITALS: BP 120/64
[2017-07-22] MEDS ORDERED: ATORVASTATIN 10 MG TAB PO SCH (21:00)
[2017-07-22] MEDS: ATORVASTATIN 10 MG TAB PO SCH (21:00)
--- NOTE | 2017-07-22 23:02 | Operative Report ---
DATE OF PROCEDURE: July 22, 2017 PREOPERATIVE DIAGNOSES: 1. Open left humerus fracture. 2. Multiple lacerations and skin loss overlying the left forearm and elbow. POSTOPERATIVE DIAGNOSES: 1. Open left humerus fracture. 2. Multiple lacerations and skin loss overlying the left forearm and elbow. OPERATIONS/PROCEDURES PERFORMED: Patient underwent an: 1. Irrigation and debridement of the left grade 1 open proximal humerus fracture. 2. Irrigation and debridement of the multiple left forearm and elbow skin wounds. PIGS FEET CLEANER: None. ANESTHESIA: General endotracheal intubation anesthesia. IV FLUIDS: Per the anesthesia record. BRIEF DESCRIPTION OF PATIENT'S OPERATIVE PROCEDURE: Mr. Mcduffie was taken to the operating room and placed in the supine position on the operating room table. Following induction of general anesthesia as well as endotracheal intubation, the patient was turned to a lateral position with his left side up. He was held in place with a well-padded rodriguez bag. An axillary roll was placed in the right chest wall. His bilateral lower extremities were also well padded at this time. Evaluation of the patient's left upper extremity demonstrated a pinhole injury to the upper arm in the region of the proximal humerus fracture. He was actively bleeding fracture hematoma at the time of the surgery. The patient additionally had multiple abrasions and skin loss involving his forearm and elbow. Several of these lacerations were subacute and appeared to have superficial infection as well as devitalized skin. Others were found to be new from his most recent fall. All were superficial and extended at its deepest level through the dermis to the underlying muscle. No laceration about the forearm or elbow penetrated to the level of the bone or joint. The patient's upper extremity was prepped and draped in standard surgical fashion. The case was begun by extending the punctate laceration over the patient's proximal humerus fracture to open the soft tissues. A hemostat was then used to probe the wound and the wound clearly communicated with the patient's fracture site. Retractors were then inserted into the opened wound and 3 liters of bacitracin-laden normal saline, followed by 3 liters of regular normal saline were irrigated through this wound. Once that was achieved, the wound was closed in a single layer fashion. Attention was then turned to the patient's multiple forearm and elbow soft tissue injuries. Devitalized skin was removed from the overlying soft tissue wounds with sharp dissection. The wounds themselves were lavaged and debrided both sharply and bluntly to healthy borders. All wounds were then dressed sterilely. The patient was then provided a shoulder immobilizer, awakened, and taken to the postanesthesia care unit in stable condition. Job#: [id number]
[2017-07-22] MEDS: DIPHENHYDRAMINE HCL 25 MG CAP PO PRN (23:17)
[2017-07-22] MEDS: ACETAMINOPHEN/CODEINE 300MG - 30MG TAB PO PRN (23:17)
[2017-07-23] MEDS: CEFAZOLIN SOD 1 GM VIAL IV SCH ×2 (00:18→09:14)
[2017-07-23] MEDS: PIPER-TAZ 3.375 GM 50 ML IV SCH ×4 (01:06→19:10)
[2017-07-23] MEDS: VANCOMYCIN 750MG/NS 150ML IVPB 150 ML IV SCH ×2 (03:47→17:09)
[2017-07-23 03:52] VITALS: BP 137/67
[2017-07-23] MEDS: SODIUM CHLORIDE 0.9% 1000ML 1,000 ML IV SCH (05:00)
[2017-07-23 06:19] LABS: BASOPHILS % 0.5 % (0.0-1.0); EOSINOPHILS # (AUTO) 0.1 (0.0-0.4); EOSINOPHILS % 0.8 % (0.0-6.0); HEMATOCRIT 26.5 % (38.2-49.6); HEMOGLOBIN 8.8 g/dL (14.0-18.0); LYMPHOCYTES # (AUTO) 1.1 (1.0-3.2); LYMPHOCYTES % 12.7 % (18.0-39.1); MEAN CORPUSCULAR HEMOGLOBIN 31.1 pg (28-32); MEAN CORPUSCULAR HGB CONC 33.2 g/dL (31-35); MEAN CORPUSCULAR VOLUME 93.6 fL (81-99); MONOCYTES # (AUTO) 0.7 (0.2-0.8); MONOCYTES % 8.1 % (4.4-11.3); NEUTROPHILS # (AUTO) 6.7 (2.1-6.9); NEUTROPHILS % 77.6 % (38.7-80.0); PLATELET COUNT 103 x10e3/uL (140-360); RED BLOOD COUNT 2.83 x10e6/uL (4.3-5.7); RED CELL DISTRIBUTION WIDTH 14.8 % (11.7-14.4)
[2017-07-23 06:39] LABS: ALBUMIN 2.6 g/dL (3.5-5.0); ALBUMIN/GLOBULIN RATIO 1.2 (0.8-2.0); ANION GAP 9.4 mmol/L (8-16); CALCIUM 8.4 mg/dL (8.4-10.2); CREATININE, SERUM 1.29 mg/dL (0.72-1.25); POTASSIUM 3.4 mmol/L (3.5-5.1)
[2017-07-23 07:00] VITALS: BP 138/89
[2017-07-23] MEDS ORDERED: AMIODARONE HCL 200 MG TAB PO SCH (09:00)
[2017-07-23] MEDS ORDERED: FUROSEMIDE 40 MG TAB PO SCH (09:00)
[2017-07-23] MEDS: FUROSEMIDE 40 MG TAB PO SCH (09:00)
[2017-07-23] MEDS: AMIODARONE HCL 200 MG TAB PO SCH (09:15)
[2017-07-23 10:40] VITALS: BP 138/89
[2017-07-23] MEDS ORDERED: POTASSIUM CHLORIDE 20 MEQ TAB CR PO NR ×2 (12:15→17:00)
[2017-07-23 16:00] VITALS: BP 158/72
[2017-07-23] MEDS ORDERED: SODIUM CHLORIDE 0.9% 250ML 250 ML ONE ×2 (16:53→19:10)
[2017-07-23] MEDS: ACETAMINOPHEN/CODEINE 300MG - 30MG TAB PO PRN (18:35)
[2017-07-23 19:50] VITALS: BP 166/76
[2017-07-23 20:00] VITALS: BP 166/76
[2017-07-23] MEDS: ATORVASTATIN 10 MG TAB PO SCH (21:10)
[2017-07-23] MEDS: DIPHENHYDRAMINE HCL 25 MG CAP PO PRN (22:25)
[2017-07-24] VITALS (7 sets, daily range): BP systolic 148–164; BP diastolic 66–80
[2017-07-24] MEDS: PIPER-TAZ 3.375 GM 50 ML IV SCH ×5 (00:53→23:44)
[2017-07-24 04:27] LABS: BASOPHILS # (AUTO) 0.1 (0.0-0.1); BASOPHILS % 0.8 % (0.0-1.0); EOSINOPHILS # (AUTO) 0.2 (0.0-0.4); EOSINOPHILS % 1.7 % (0.0-6.0); HEMATOCRIT 29.9 % (38.2-49.6); HEMOGLOBIN 10.1 g/dL (14.0-18.0); LYMPHOCYTES # (AUTO) 1.2 (1.0-3.2); LYMPHOCYTES % 13.2 % (18.0-39.1); MEAN CORPUSCULAR HEMOGLOBIN 31.4 pg (28-32); MEAN CORPUSCULAR HGB CONC 33.8 g/dL (31-35); MEAN CORPUSCULAR VOLUME 92.9 fL (81-99); MONOCYTES # (AUTO) 0.9 (0.2-0.8); MONOCYTES % 9.5 % (4.4-11.3); NEUTROPHILS # (AUTO) 6.9 (2.1-6.9); NEUTROPHILS % 74.3 % (38.7-80.0); PLATELET COUNT 114 x10e3/uL (140-360); RED BLOOD COUNT 3.22 x10e6/uL (4.3-5.7); RED CELL DISTRIBUTION WIDTH 14.8 % (11.7-14.4)
[2017-07-24 04:45] LABS: ANION GAP 10.4 mmol/L (8-16); CALCIUM 8.1 mg/dL (8.4-10.2); CREATININE, SERUM 1.27 mg/dL (0.72-1.25); POTASSIUM 3.4 mmol/L (3.5-5.1)
[2017-07-24] MEDS: MUPIROCIN 2% OINT 22 GM TUBE TOP SCH (09:31)
[2017-07-24] MEDS: AMIODARONE HCL 200 MG TAB PO SCH (09:31)
[2017-07-24] MEDS: FUROSEMIDE 40 MG TAB PO SCH (09:31)
[2017-07-24] MEDS: ACETAMINOPHEN/CODEINE 300MG - 30MG TAB PO PRN ×2 (11:22→16:05)
[2017-07-24] MEDS: POTASSIUM CHLORIDE 10 MEQ TABCR PO SCH (12:06)
[2017-07-24] MEDS: VANCOMYCIN 750MG/NS 150ML IVPB 150 ML IV SCH (17:07)
[2017-07-24] MEDS: ATORVASTATIN 10 MG TAB PO SCH (21:55)
[2017-07-25] VITALS (8 sets, daily range): BP systolic 124–170; BP diastolic 60–76
[2017-07-25] MEDS: ACETAMINOPHEN/CODEINE 300MG - 30MG TAB PO PRN ×2 (00:10→12:45)
[2017-07-25] MEDS: PIPER-TAZ 3.375 GM 50 ML IV SCH ×3 (06:13→17:00)
[2017-07-25] MEDS: FUROSEMIDE 40 MG TAB PO SCH (08:44)
[2017-07-25] MEDS: POTASSIUM CHLORIDE 10 MEQ TABCR PO SCH (08:44)
[2017-07-25] MEDS: AMIODARONE HCL 200 MG TAB PO SCH (08:44)
[2017-07-25] MEDS: MAGNESIUM HYDROXIDE 30 ML UDC PO PRN (11:08)
[2017-07-25] MEDS: MUPIROCIN 2% OINT 22 GM TUBE TOP SCH (13:50)
[2017-07-25] MEDS: VANCOMYCIN 750MG/NS 150ML IVPB 150 ML IV SCH (17:19)
[2017-07-25] MEDS: ATORVASTATIN 10 MG TAB PO SCH (21:00)
[2017-07-26] VITALS: BP 124/60
[2017-07-26] MEDS ORDERED: SODIUM CHLORIDE 0.9% 250ML 250 ML ONE (00:28)
[2017-07-26] MEDS: PIPER-TAZ 3.375 GM 50 ML IV SCH ×2 (05:50)
[2017-07-26 05:59] VITALS: BP 127/60
[2017-07-26 07:55] VITALS: BP 155/67
[2017-07-26] MEDS: AMIODARONE HCL 200 MG TAB PO SCH (09:23)
[2017-07-26] MEDS: FUROSEMIDE 40 MG TAB PO SCH (09:23)
[2017-07-26] MEDS: MAGNESIUM HYDROXIDE 30 ML UDC PO PRN (09:23)
[2017-07-26] MEDS: POTASSIUM CHLORIDE 10 MEQ TABCR PO SCH (09:23)
[2017-07-26 09:25] VITALS: BP 155/67
[2017-07-26] MEDS: ACETAMINOPHEN/CODEINE 300MG - 30MG TAB PO PRN (10:30)
[2017-07-26] MEDS: MUPIROCIN 2% OINT 22 GM TUBE TOP SCH (10:51)
[2017-07-26] MEDS ORDERED: FUROSEMIDE40 MG PO (13:25)
[2017-07-26] MEDS ORDERED: MUPIROCIN22 GM TOP (13:25)
[2017-07-26] MEDS ORDERED: Diphenhydramine Hcl PO (13:25)
[2017-07-26] MEDS ORDERED: K DUR10 MEQ PO (13:25)
[2017-07-26] MEDS ORDERED: MILK OF MA400 MG/5 M PO (13:25)
[2017-07-26] MEDS ORDERED: KEFLEX500 MG PO (13:25)
[2017-07-26 16:05] VITALS: BP 188/77
--- NOTE | 2017-07-26 16:21 | Discharge Summary ---
HISTORY OF PRESENT ILLNESS: Mr. Mcduffie is a very elderly, 82-year-old man with multiple medical problems who presented to the emergency room after falling down at home and fracturing his left humerus. HOSPITAL COURSE: Patient was seen by Dr. Wallace and found an open fracture. He was taken to the operating room where he was debrided only. There was no repair of the bone done. Patient also had a skin wound, "degloving" of the elbow and forearm area. He was given broad-spectrum antibiotics and analgesics and given a left arm immobilizer. The patient is somewhat debilitated and is not ambulating for himself, and his is unable to provide adequate supportive care. He had some constipation and was given Milk of Magnesia. He was given potassium 10 mEq daily for his daily furosemide. He is discharged to home at this time to discontinue IV antibiotics and to use instead Keflex 500 mg q.i.d. for 10 days. He will use Ultracet for pain and add the potassium 10 mEq daily to his furosemide 40 mg daily. He will discontinue methylprednisolone tablets, Ambien and Xanax. He will follow up with Dr. Wallace in 7 to 10 days for further management of his humerus fracture and with Dr. Welch as needed. He will follow up with Dr. Bailey for long-term care and he will be seen in our office for management of his congestive heart failure and his implanted defibrillator. DISCHARGE DIAGNOSES 1. Humerus fracture. 2. Degloving of the left arm, elbow and forearm. 3. Congestive heart failure. 4. Automatic implantable cardioverter-defibrillator. 5. Mild renal insufficiency. 6. Chronic steroid usage. 7. Chronic usage of benzodiazepines, which has been discontinued. DENISHA TYLER MD Job#: [id number] cc:MD GINA WHEATLEY M.D. ERIC ROTHENBERG, MD
[2017-07-26] MEDS ORDERED: CLONIDINE HCL 0.1 MG TAB PO ONE (16:30)
== END 2017-07-26 17:39 | DRG 501 ==
LOC: ER 01:19 → ERHOLD 05:18 → UNDOADMIN 05:18 → OR 07:42 → IMCU 16:07 → MED/SURG2 07-23 07:55
PROVIDERS: ADMIT Internal Medicine Cardiovascular Disease; ATTEND Internal Medicine Cardiovascular Disease
PROC: 0JQF0ZZ Repair Left Upper Arm Subcutaneous Tissue and Fascia, Open Approach (ICD-10-PCS; 2017-07-22)
PROC: 0JDF0ZZ Extraction of Left Upper Arm Subcutaneous Tissue and Fascia, Open Approach (ICD-10-PCS; principal; 2017-07-22 09:30)
DX: S42.202B Unspecified fracture of upper end of left humerus, initial encounter for open fracture (principal); I50.22 Chronic systolic (congestive) heart failure; M97.32XA Periprosthetic fracture around internal prosthetic left shoulder joint, initial encounter; Y92.091 Bathroom in other non-institutional residence as the place of occurrence of the external cause; M06.9 Rheumatoid arthritis, unspecified; Z86.718 Personal history of other venous thrombosis and embolism; Z79.01 Long term (current) use of anticoagulants; I25.10 Atherosclerotic heart disease of native coronary artery without angina pectoris; Z95.5 Presence of coronary angioplasty implant and graft; Z79.52 Long term (current) use of systemic steroids; S51.802A Unspecified open wound of left forearm, initial encounter; W01.0XXA Fall on same level from slipping, tripping and stumbling without subsequent striking against object, initial encounter; I11.0 Hypertensive heart disease with heart failure; I25.5 Ischemic cardiomyopathy; E78.5 Hyperlipidemia, unspecified; Z96.612 Presence of left artificial shoulder joint
CPT/HCPCS: 36415; 70450; 71045; 72125; 72170; 80048; 80053; 80202; 81001; 82550; 82553; 83605; 83735; 84484; 85025; 85610; 85730; 87040; 93005; 96367; 96374; 96376; 97139; 99285; J0690; J1720; J1885; J2270; J2405; J2543; J3370; J7030; J7050